=== PATIENT | female | born 1995 | race Caucasian/White ===

== ENCOUNTER 2019-03-10 10:10 | Emergency (ER) | payer OTHER, MEDICAID, SELFPAY ==
[2019-03-10 10:19] VITALS: BP 132/70; PULSE 77; RESP 18; TEMP 36.6; O2SAT 99; BMI 40.5
--- NOTE | 2019-03-10 10:59 | ED.PREGNANCY ---
HPI - General Chief complaint: OB/Uterine Contractions Stated complaint: Cramping/6 wks Time Seen by Provider: 03/10/19 10:50 Source: patient Mode of arrival: ambulatory Limitations: no limitations History of Present Illness HPI Narrative: Patient is a 23-year-old female who states that she thinks she is about 6 weeks she is having some lower abdominal cramping no vaginal bleeding or spotting. She is . She had a miscarriage about 2 years ago. She is actually trying to get . She denies any fever. She is requesting that her progesterone level be checked after researching it on the Internet. Pain Consistency: intermittent Patient : Yes Related Data Allergies Allergy/AdvReac Type Severity Reaction Status Date / Time No Known Allergies Allergy Uncoded 12/23/17 12:24 Review of Systems Review of Systems ROS Unobtainable: All systems reviewed & are unremarkable except as noted in HPI and below Constitutional Denies chills, Denies fever(s), Denies lethargy and Denies weakness Eyes Denies change in vision, Denies eye discharge, Denies irritation and Denies loss of vision ENT Ears, Nose, Mouth, and Throat: Denies change in voice, Denies neck pain and Denies sore throat Cardiovascular Denies chest pain, Denies irregular heart rhythm, Denies lightheadedness, Denies palpitations, Denies dyspnea, Denies dyspnea on exertion and Denies orthopnea Respiratory Denies cough, Denies dyspnea, Denies dyspnea on exertion and Denies wheezing Gastrointestinal Gastrointestinal: Denies abdominal pain, Denies change in bowel habits, Denies diarrhea, Denies nausea and Denies vomiting Genitourinary Reports as per HPI Musculoskeletal Denies neck pain Integumentary/Breasts Denies pruritus, Denies erythema, Denies rash and Denies wounds Neurologic Denies loss of vision and Denies weakness Endocrine Denies palpitations Allergic/Immunologic Denies wheezing PMFSH - Past Medical History Patient : Yes Exam Initial Vital Signs Initial Vital Signs: Vital Signs Temperature 97.9 F 03/10/19 10:19 Pulse Rate 77 03/10/19 10:19 Respiratory Rate 18 03/10/19 10:19 Blood Pressure 132/70 03/10/19 10:19 Pulse Oximetry 99 03/10/19 10:19 GENERAL: Overweight well-appearing female and in no acute distress. HEENT: Head atraumatic,EOMI, pupils reactive CARDIOVASCULAR: Regular rate and rhythm without murmurs, rubs or gallops. RESPIRATORY: Breath sounds equal bilaterally, no wheezes rales or rhonchi. ABDOMEN: Soft, nontender. Normoactive bowel sounds all 4 quadrants. No guarding or rebound. : No CVA tenderness EXTREMITIES: Normal range of motion, no clubbing or edema. Neurovascularly intact NEUROLOGICAL: Alert and oriented x4.Normal gait and speech. Cranial nerves II through XII grossly intact. SKIN: Warm, dry, no laceration, no petechiae, no rashes or lesions. Course Orders Ordered: ED Orders 03/10/19 10:58 US OB <= 14 weeks fetus Stat 03/10/19 11:16 ABO RH Type Stat Complete Blood Count AUTO DIFF Stat Comprehensive Metabolic Panel Stat HCG Quantitative Stat Vital Signs - 8 hr 03/10/19 10:19 Temperature 97.9 F Pulse Rate 77 Respiratory Rate 18 Blood Pressure 132/70 Pulse Oximetry 99 MDM - OB/Uterine Contractions Lab Data Attestation: I reviewed the patient's lab results. Result diagrams: 03/10/19 11:16 03/10/19 11:16 Lab Results 03/10/19 03/10/19 03/10/19 Range/Units 11:16 11:16 11:16 WBC 8.7 (4.5-11.0) X10^3/uL RBC 4.59 (4.0-5.2) X10^6/uL Hgb 14.3 (12.0-16.0) g/dL Hct 41.3 (36-46) % MCV 90.0 (80-100) fL MCH 31.2 (26-34) PG MCHC 34.6 (30-36) % RDW 12.5 (11.6-14.8) % Plt Count 235 (150-400) X10^3/uL Neut % (Auto) 61.8 (50-75) % Lymph % (Auto) 29.8 (25-40) % [place] % (Auto) 7.1 (3-14) % Eos % (Auto) 0.5 L (2-4) % Baso % (Auto) 0.8 (0-2) % Neut # (Auto) 5400 (6458-4588) /uL Lymph # (Auto) 2600 (0653-0735) /uL [place] # (Auto) 600 (0-900) /uL Eos # (Auto) 0 (0-450) /uL Baso # (Auto) 100 (0-100) /uL Sodium 138 (137-145) mmol/L Potassium 3.9 (3.4-5.1) mmol/L Chloride 106 (98-107) mmol/L Carbon Dioxide 24 (22-32) mmol/L BUN 7 (7-17) mg/dL Creatinine 0.50 L (0.52-1.04) mg/dL Estimated GFR > 60.0 (>60) mL/min BUN/Creatinine Ratio 14.0 (6-22) Glucose 90 (70-100) mg/dL Calcium 8.7 (8.4-10.2) mg/dL Total Bilirubin 0.5 (0.2-1.3) mg/dL AST 34 (14-36) IU/L ALT 47 (9-52) IU/L Alkaline Phosphatase 50 (38-126) U/L Total Protein 6.8 (6.3-8.2) g/dL Albumin 4.1 (3.5-5.0) g/dL Globulin 2.7 (1.7-4.1) g/dL Albumin/Globulin Ratio 1.5 (1.0-2.8) HCG, Quant 64570 mIU/mL Blood Type O Positive Point of Care Testing Test Results Positive Urine Dip Bedside Urine Glucose Negative Bedside Urine Bilirubin - Negative Bedside Urine Ketone +/- 5 Urine Specific [place] 1.030 Bedside Urine Occult Blood - Negative Bedside Urine pH 6.0 Bedside Urine Protein +/- 15 Bedside Urine Urobilinogen - Negative Bedside Urine Nitrite - Negative Bedside Urine Leukocytes - Negative Esterase Imaging Data US OB <14 wks: Radiologist's impression: PROCEDURE: US OB <= 14 WEEKS FETUS INDICATIONS: 6 WEEKS CRAMPING OUTSIDE/PRIOR DATING DATA: Last menstrual period (LMP): 01/25/2019. LMP-based estimated date of delivery (IJEOMA): 11/01/2018. First dating scan (date and location): 03/10/2019. Estimated date of delivery (IJEOMA) from first dating scan: 11/02/2019. TECHNIQUE: Real-time scanning was performed of the fetus and maternal pelvic organs, with image documentation. Endovaginal scanning was also performed to better visualize the fetus and maternal ovaries. COMPARISON: [facility], , PELVIC COMPLETE, 01/21/2013, 15:18. FINDINGS: There is a single living IUP with the estimated gestational age 6 weeks one day based on crown-rump length. cardiac activity is present with heart rate 136 bpm. There is a normal-appearing yolk sac. There is a 1.3 x 0.7 x 1.2 cm subchorionic hematoma adjacent to the gestational sac. Measurement variability in dating: +/- 4 weeks by LMP, +/- 7 days by mean sac diameter (use before 6 weeks gestation if crown-rump length not able to be measured), +/- 5 days by crown-rump length (up to 8 weeks 6 days gestation), +/- 7 days by crown-rump length (up to 13 weeks 6 days gestation). Maternal organs: Ovaries are not visualized. Limited images through the kidneys demonstrate no hydronephrosis. IMPRESSION: 1. A single living intrauterine gestation with an estimated gestational age of 6 weeks 1 day corresponding to ultrasound IJEOMA 11/02/2019, concordant with clinical dating. 2. A small perigestational hematoma is noted. Dictated by: Megan Simmons M.D. on 03/10/2019 at 13:16 MDM Narrative Medical decision making narrative: Patient left prior to full blood work. US reassuring. He did not wait for me to come the room and explained things. Discharge Plan Departure Patient Disposition: Left Against Medical Advice Clinical Impression: Left against medical advice Discharge Date/Time: 03/10/19 12:04 Interventions: ED Discharge Assessment Last Done: 03/10/19 12:03 Stand Alone Forms: Against Medical Advice
[2019-03-10 11:27] LABS: Add Manual Diff / Slide Review NO; Basophils Absolute Auto 100 /uL (0-100); Basophils Percent Auto 0.8 % (0-2); Eosinophils Absolute Auto 0 /uL (0-450); Eosinophils Percent Auto 0.5 % (2-4); Hematocrit 41.3 % (36-46); Hemoglobin 14.3 g/dL (12.0-16.0); Lymphocytes Absolute Auto 2600 /uL (1100-4500); Lymphocytes Percent Auto 29.8 % (25-40); Mean Corpuscular HGB Conc 34.6 % (30-36); Mean Corpuscular Hemoglobin 31.2 PG (26-34); Monocytes Absolute Auto 600 /uL (0-900); Monocytes Percent Auto 7.1 % (3-14); Neutrophils Absolute Auto 5400 /uL (1500-7000); Neutrophils Percent Auto 61.8 % (50-75); Platelet Count 235 X10^3/uL (150-400); Red Blood Cell Count 4.59 X10^6/uL (4.0-5.2); Red Cell Distribution Width 12.5 % (11.6-14.8); White Blood Cell Count 8.7 X10^3/uL (4.5-11.0)
[2019-03-10 11:38] LABS: Alanine Aminotransferase 47 IU/L (9-52); Albumin 4.1 g/dL (3.5-5.0); Albumin Globulin Ratio 1.5 (1.0-2.8); Alkaline Phosphatase 50 U/L (38-126); Aspartate Aminotransferase 34 IU/L (14-36); Bilirubin Total 0.5 mg/dL (0.2-1.3); Blood Urea Nitrogen 7 mg/dL (7-17); Calcium 8.7 mg/dL (8.4-10.2); Carbon Dioxide 24 mmol/L (22-32); Chloride 106 mmol/L (98-107); Estimated Glomerular Filt Rate > 60.0 mL/min (>60); Globulin 2.7 g/dL (1.7-4.1); Glucose 90 mg/dL (70-100); Potassium 3.9 mmol/L (3.4-5.1); Sodium 138 mmol/L (137-145); Total Protein 6.8 g/dL (6.3-8.2)
--- NOTE | 2019-03-10 12:01 | PC.NURSE ---
Patient came out of room and asked if she could go. Pt informed that we are still waiting for test results including the official ultrasound results. Pt states that her mother wants to go and they do no want to wait for results. Pt states that ultrasound told her they saw a heart beat so they are comfortable leaving. Charge nurse notified and AMA paper signed.
[2019-03-10 12:18] LABS: HCG Quantitative /Beta subunit 40165 mIU/mL; HEMOLYSIS 26 (0-50)
== END 2019-03-10 12:04 | disposition left against medical advice (07) ==
PROVIDERS: Emergency Provider Emergency Medicine
DX: R10.9 Unspecified abdominal pain (principal)
CPT/HCPCS: 36415; 76801; 76817; 80053; 81003; 81025; 84702; 85025; 86900; 86901; 99283; 99284

== ENCOUNTER 2019-03-18 08:44 | Emergency (ER) | payer OTHER, MEDICAID, SELFPAY ==
[2019-03-18 08:45] VITALS: BP 114/65; PULSE 88; RESP 14; TEMP 36.7; O2SAT 100
--- NOTE | 2019-03-18 09:15 | ED_ITS ---
HPI - Nausea/Vomiting/Diarrhea General Chief complaint: Nausea/Vomiting/Diarrhea Stated complaint: Kidney issues Time Seen by Provider: 03/18/19 08:59 Source: patient Mode of arrival: ambulatory Limitations: no limitations History of Present Illness HPI Narrative: Patient is a 23-year-old female who is currently 7 weeks presenting with left flank pain and nausea. He actually seen evaluated here last week he was having some cramping at that time she had an ultrasound which showed a 6 week IUP. She now is having pretty constant left flank pain. She denies fever or chills. MD complaint: nausea Location of pain: left flank Severity: moderate Related Data Home Medications Medication Instructions Recorded Confirmed vit-iron fum-folic ac 1 tab PO DAILY 03/18/19 03/18/19 [ Vitamin] Previous Rx's Medication Instructions Recorded ondansetron 4 mg PO Q6-8H PRN #20 tab 03/18/19 Allergies Allergy/AdvReac Type Severity Reaction Status Date / Time No Known Drug Allergies Allergy Verified 03/18/19 09:02 Review of Systems Review of Systems GENERAL: Denies chills, fatigue, malaise, fever, sweats, travel HEENT: Denies sinus pain, ear pain, sore throat, difficulty swallowing, neck pain RESPIRATORY: Denies dyspnea, cough, wheezing, hemoptysis, sputum. CARDIOVASCULAR: Denies chest pain, palpitations, orthopnea, edema GASTROINTESTINAL: Denies nausea, vomiting, abdominal pain, diarrhea, constipation, melena. : See HPI MUSCULOSKELETAL: Denies weakness, joint pain, or bony pain SKIN: No rash, no erythema, no pruritus NEUROLOGIC: Denies weakness, dizziness, headache, numbness, change in speech, confusion PSYCHIATRIC: No concerning psychosocial issues. 12 point review of systems is negative except for those stated above and HPI [facility] Medical History Patient denies significant medical history (Acute) Social History (System 03/14/19 @ 09:11 by Zaida Hinson) Smoking Status: Former smoker Social History Smoking Status: Former smoker Exam Initial Vital Signs Initial Vital Signs: Vital Signs Temperature 98.0 F 03/18/19 08:45 Pulse Rate 88 03/18/19 08:45 Respiratory Rate 14 03/18/19 08:45 Blood Pressure 114/65 03/18/19 08:45 Pulse Oximetry 100 03/18/19 08:45 GENERAL: Alert young female and in no acute distress. HEENT: Head atraumatic,EOMI, pupils reactive CARDIOVASCULAR: Regular rate and rhythm without murmurs, rubs or gallops. RESPIRATORY: Breath sounds equal bilaterally, no wheezes rales or rhonchi. ABDOMEN: Soft, nontender. Normoactive bowel sounds all 4 quadrants. No guarding or rebound. : Left flank CVA tenderness EXTREMITIES: Normal range of motion, no clubbing or edema. Neurovascularly intact NEUROLOGICAL: Alert and oriented x4.Normal gait and speech. Cranial nerves II through XII grossly intact. SKIN: Warm, dry, no laceration, no petechiae, no rashes or lesions. Course Orders Ordered: ED Orders 03/18/19 09:32 Complete Blood Count AUTO DIFF Stat Comprehensive Metabolic Panel Stat 03/18/19 11:02 US abdomen complete Stat Discontinued Medications Acetaminophen (Tylenol) 975 mg PO NOW ONE Stop: 03/18/19 09:10 Last Admin: 03/18/19 09:20 Dose: 975 mg Sodium Chloride (Normal Saline 0.9%) 1,000 mls @ 1,000 mls/hr IV BOLUS ONE Stop: 03/18/19 10:02 Last Infusion: 03/18/19 10:30 Dose: 0 mls/hr Admin: 03/18/19 09:21 Dose: 1,000 mls/hr Ondansetron HCl (Zofran) 4 mg IV NOW ONE Stop: 03/18/19 09:10 Last Admin: 03/18/19 09:20 Dose: 4 mg Vital Signs - 8 hr 03/18/19 08:45 03/18/19 12:07 Temperature 98.0 F Pulse Rate 88 57 L Respiratory Rate 14 16 Blood Pressure 114/65 Blood Pressure [Left Arm] 106/58 L Pulse Oximetry 100 100 MDM - Nausea/Vomiting/Diarrhea Lab Data Attestation: I reviewed the patient's lab results. Result diagrams: 03/18/19 09:32 03/18/19 09:32 Lab Results 03/18/19 03/18/19 Range/Units 09:32 09:32 WBC 9.4 (4.5-11.0) X10^3/uL RBC 4.36 (4.0-5.2) X10^6/uL Hgb 13.5 (12.0-16.0) g/dL Hct 39.6 (36-46) % MCV 90.8 (80-100) fL MCH 30.9 (26-34) PG MCHC 34.0 (30-36) % RDW 12.5 (11.6-14.8) % Plt Count 203 (150-400) X10^3/uL Neut % (Auto) 67.3 (50-75) % Lymph % (Auto) 24.9 L (25-40) % [place] % (Auto) 6.9 (3-14) % Eos % (Auto) 0.4 L (2-4) % Baso % (Auto) 0.5 (0-2) % Neut # (Auto) 6400 (4708-3014) /uL Lymph # (Auto) 2300 (4273-0959) /uL [place] # (Auto) 600 (0-900) /uL Eos # (Auto) 0 (0-450) /uL Baso # (Auto) 0 (0-100) /uL Sodium 138 (137-145) mmol/L Potassium 4.0 (3.4-5.1) mmol/L Chloride 105 (98-107) mmol/L Carbon Dioxide 24 (22-32) mmol/L BUN 8 (7-17) mg/dL Creatinine 0.50 L (0.52-1.04) mg/dL Estimated GFR > 60.0 (>60) mL/min BUN/Creatinine Ratio 16.0 (6-22) Glucose 88 (70-100) mg/dL Calcium 8.6 (8.4-10.2) mg/dL Total Bilirubin 0.4 (0.2-1.3) mg/dL AST 24 (14-36) IU/L ALT 53 H (9-52) IU/L Alkaline Phosphatase 49 (38-126) U/L Total Protein 6.3 (6.3-8.2) g/dL Albumin 3.8 (3.5-5.0) g/dL Globulin 2.5 (1.7-4.1) g/dL Albumin/Globulin Ratio 1.5 (1.0-2.8) Point of Care Testing Test Results Positive Urine Dip Bedside Urine Glucose Negative Bedside Urine Bilirubin - Negative Bedside Urine Ketone - Negative Urine Specific [place] 1.030 Bedside Urine Occult Blood - Negative Bedside Urine pH 6.0 Bedside Urine Protein +/- 15 Bedside Urine Urobilinogen - Negative Bedside Urine Nitrite - Negative Bedside Urine Leukocytes - Negative Esterase Imaging Data US - abdomen: Radiologist's impression: PROCEDURE: US ABDOMEN COMPLETE INDICATIONS: LEFT FLANK PAIN TECHNIQUE: Real-time scanning was performed of the abdominal and retroperitoneal organs, with image documentation. COMPARISON: [facility], US, US OB <= 14 WEEKS FETUS, 03/10/2019, 11:20. FINDINGS: Liver: Liver is normal in size and demonstrates diffusely increased echotexture. Gallbladder: No gallstones. No gallbladder wall thickening, pericholecystic fluid or sonographic Lunsford's sign. Biliary ducts: Intrahepatic bile ducts are non-dilated. Extrahepatic bile duct caliber measures 4.0 mm. Normal is 6-7 mm or less in diameter, or 10 mm or less post-cholecystectomy. Pancreas: Obscured by overlying bowel gas. Spleen: Spleen is normal in size and homogeneous in echotexture. Kidneys: Kidneys are normal in size and echotexture. Right kidney measures 11.3 cm long; left kidney measures 15.0 cm long. No hydronephrosis or nephrolithiasis. No solid masses. Aorta: Visualized aorta is normal in caliber at less than 3 cm. Iliacs: Proximal common iliac arteries are normal in caliber at less than 2.5 cm. IVC: Intrahepatic inferior vena cava is patent. Miscellaneous: No free abdominal fluid. There is an IUP with heart rate 144. IMPRESSION: 1. Diffusely increased hepatic echotexture. This finding is most likely secondary to hepatic fatty infiltration although other hepatocellular disease may have a similar appearance. Recommend clinical correlation. 2. Suboptimal examination. Pancreas and spleen not visualized. 3. There is an IUP with heart rate 144 bpm. Dictated by: Megan Simmons M.D. on 03/18/2019 at 11:46 MDM Narrative Medical decision making narrative: At this time no significant infection. She was documented to have an IUP week ago. She is feeling will better after Tylenol. This time recommend outpatient follow-up. Discharge Plan Departure Patient Disposition: Home Clinical Impression: Abdominal pain Qualifiers: Abdominal location: generalized Qualified Code(s): R10.84 - Generalized abdominal pain Discharge Date/Time: 03/18/19 12:13 Interventions: ED Discharge Assessment Last Done: 03/18/19 12:12 Instructions: Common Discomforts and Bodily Changes During Activity Restrictions/Additional Instructions: *You have been diagnosed with abdominal discomfort *What to do: At this time there is no sign of infection including UTI. Blood work is reassuring. Ultrasound does not show any kidney stones or gallbladder problem. *Continue to take medications as directed Zofran 4 mg every 6-8 hours if needed for nausea or vomiting *Follow up with your primary care provider in 2-3 days, follow up with your Ob *Return to ER if you should have significant worsening pain significant bright red vaginal bleeding or any new, worsening or concerning symptoms Prescriptions: New ondansetron 4 mg tablet,disintegrating 4 mg PO Q6-8H PRN (Reason: nausea and vomiting) Qty: 20 RF: 0 No Action Vitamin 27 mg iron- 0.8 mg Tablet 1 tab PO DAILY RF: 0 Referrals: Adriana Bullock PA-C [Primary Care Provider] -
[2019-03-18] MEDS: ACETAMINOPHEN 325 MG TABLET 975 MG PO (09:20)
[2019-03-18] MEDS: ONDANSETRON 4 MG/2 ML INJ IV (09:20)
[2019-03-18] MEDS: SODIUM CHLORIDE 0.9% 1,000 ML 1000 ML IV (09:21)
[2019-03-18 09:41] LABS: Add Manual Diff / Slide Review NO; Basophils Absolute Auto 0 /uL (0-100); Basophils Percent Auto 0.5 % (0-2); Eosinophils Absolute Auto 0 /uL (0-450); Eosinophils Percent Auto 0.4 % (2-4); Hematocrit 39.6 % (36-46); Hemoglobin 13.5 g/dL (12.0-16.0); Lymphocytes Absolute Auto 2300 /uL (1100-4500); Lymphocytes Percent Auto 24.9 % (25-40); Mean Corpuscular Hemoglobin 30.9 PG (26-34); Mean Corpuscular Volume 90.8 fL (80-100); Monocytes Absolute Auto 600 /uL (0-900); Monocytes Percent Auto 6.9 % (3-14); Neutrophils Absolute Auto 6400 /uL (1500-7000); Neutrophils Percent Auto 67.3 % (50-75); Platelet Count 203 X10^3/uL (150-400); Red Blood Cell Count 4.36 X10^6/uL (4.0-5.2); Red Cell Distribution Width 12.5 % (11.6-14.8); White Blood Cell Count 9.4 X10^3/uL (4.5-11.0)
[2019-03-18 09:55] LABS: Alanine Aminotransferase 53 IU/L (9-52); Albumin 3.8 g/dL (3.5-5.0); Albumin Globulin Ratio 1.5 (1.0-2.8); Alkaline Phosphatase 49 U/L (38-126); Aspartate Aminotransferase 24 IU/L (14-36); Bilirubin Total 0.4 mg/dL (0.2-1.3); Blood Urea Nitrogen 8 mg/dL (7-17); Calcium 8.6 mg/dL (8.4-10.2); Carbon Dioxide 24 mmol/L (22-32); Chloride 105 mmol/L (98-107); Estimated Glomerular Filt Rate > 60.0 mL/min (>60); Globulin 2.5 g/dL (1.7-4.1); Glucose 88 mg/dL (70-100); HEMOLYSIS < 15 (0-50); Sodium 138 mmol/L (137-145); Total Protein 6.3 g/dL (6.3-8.2)
--- NOTE | 2019-03-18 11:02 | DI.US.S_ITS ---
PROCEDURE: US ABDOMEN COMPLETE INDICATIONS: LEFT FLANK PAIN TECHNIQUE: Real-time scanning was performed of the abdominal and retroperitoneal organs, with image documentation. COMPARISON: [facility], US, US OB <= 14 WEEKS FETUS, 03/10/2019, 11:20. FINDINGS: Liver: Liver is normal in size and demonstrates diffusely increased echotexture. Gallbladder: No gallstones. No gallbladder wall thickening, pericholecystic fluid or sonographic Lunsford's sign. Biliary ducts: Intrahepatic bile ducts are non-dilated. Extrahepatic bile duct caliber measures 4.0 mm. Normal is 6-7 mm or less in diameter, or 10 mm or less post-cholecystectomy. Pancreas: Obscured by overlying bowel gas. Spleen: Spleen is normal in size and homogeneous in echotexture. Kidneys: Kidneys are normal in size and echotexture. Right kidney measures 11.3 cm long; left kidney measures 15.0 cm long. No hydronephrosis or nephrolithiasis. No solid masses. Aorta: Visualized aorta is normal in caliber at less than 3 cm. Iliacs: Proximal common iliac arteries are normal in caliber at less than 2.5 cm. IVC: Intrahepatic inferior vena cava is patent. Miscellaneous: No free abdominal fluid. There is an IUP with heart rate 144. IMPRESSION: 1. Diffusely increased hepatic echotexture. This finding is most likely secondary to hepatic fatty infiltration although other hepatocellular disease may have a similar appearance. Recommend clinical correlation. 2. Suboptimal examination. Pancreas and spleen not visualized. 3. There is an IUP with heart rate 144 bpm. Dictated by: Megan Simmons M.D. on 03/18/2019 at 11:46 Approved by: Megan Simmons M.D. on 03/18/2019 at 11:50
[2019-03-18 12:07] VITALS: BP 106/58; PULSE 57; RESP 16; O2SAT 100
== END 2019-03-18 12:13 | disposition home or self-care (01) ==
PROVIDERS: Emergency Provider Emergency Medicine; Family Provider Physician Assistant; PCP Physician Assistant
DX: R10.84 Generalized abdominal pain (principal); Z33.1 Pregnant state, incidental
CPT/HCPCS: 36415; 76700; 80053; 81003; 81025; 85025; 96361; 96374; 99283; 99284; J2405

== ENCOUNTER 2019-04-03 07:52 | Emergency (ER) | payer OTHER, MEDICAID, SELFPAY ==
[2019-04-03 07:58] VITALS: BP 130/78; PULSE 94; RESP 16; TEMP 36.9; O2SAT 95; BMI 40.0
--- NOTE | 2019-04-03 08:17 | ED.NAVMDI ---
HPI - Nausea/Vomiting/Diarrhea General Chief complaint: Nausea/Vomiting/Diarrhea Stated complaint: Dehydrated Time Seen by Provider: 04/03/19 07:54 Source: patient and family Mode of arrival: ambulatory Limitations: no limitations History of Present Illness HPI Narrative: 23-year-old female nonsmoker presents with her mother and a chief complaint of persistent nausea and vomiting. She states she is dizzy, weak and lightheaded and this is the 3rd such episode during her current . She is a at 9 weeks and had been taking Zofran but ran out a few days ago. She denies any fever chills and has no pain nor vaginal bleeding or discharge. She becomes dizzy upon standing MD complaint: nausea and vomiting Onset (ago): hour(s) Description of Vomiting: food contents Description of Diarrhea: none Associated Abdominal Pain: No Severity: mild Exacerbating factors: none Related Data Home Medications Medication Instructions Recorded Confirmed vit-iron fum-folic ac 1 tab PO DAILY 03/18/19 03/24/19 [ Vitamin] Previous Rx's Medication Instructions Recorded ondansetron 4 mg PO Q6-8H PRN #20 tab 03/18/19 ondansetron 4 mg PO TID-QID PRN #10 tab 04/03/19 promethazine 12.5 mg AR Q4-6H PRN #12 each 04/03/19 Allergies Allergy/AdvReac Type Severity Reaction Status Date / Time Latex, Natural Rubber Allergy Swelling Verified 04/03/19 07:58 adhesives Allergy Mild Hives and Uncoded 04/03/19 07:58 Blisters Review of Systems Review of Systems ROS Unobtainable: All systems reviewed & are unremarkable except as noted in HPI and below Constitutional Denies chills, Denies fever(s), Denies lethargy and Reports weakness Eyes Denies change in vision, Denies eye discharge, Denies irritation and Denies loss of vision ENT Ears, Nose, Mouth, and Throat: Denies change in voice, Denies neck pain and Denies sore throat Cardiovascular Denies chest pain, Denies irregular heart rhythm, Denies lightheadedness, Denies palpitations, Denies dyspnea, Denies dyspnea on exertion and Denies orthopnea Respiratory Denies cough, Denies dyspnea, Denies dyspnea on exertion and Denies wheezing Gastrointestinal Gastrointestinal: Denies abdominal pain, Denies change in bowel habits, Denies diarrhea, Reports nausea and Reports vomiting Genitourinary Denies hematuria, Denies flank pain, Denies urinary incontinence and Denies urinary urgency Musculoskeletal Denies neck pain Integumentary/Breasts Denies pruritus, Denies erythema, Denies rash and Denies wounds Neurologic Denies confusion, Denies loss of vision and Reports weakness Psychiatric Denies anxiety, Denies confusion, Denies depression, Denies homicidal ideation and Denies suicidal ideation Endocrine Denies palpitations Hematologic/Lymphatic Denies easy bruising Allergic/Immunologic Denies wheezing PFSH Medical History Anxiety (Chronic) Bipolar disorder (Chronic) Depression (Chronic) Surgical History H/O dilation and curettage (Resolved) History of tonsillectomy (Resolved) Family History Mother Ovarian cancer Social History Smoking Status: Former smoker alcohol intake: former (Quit for ) substance use type: marijuana (Quit for ) Family History Mother Ovarian cancer Social History Smoking Status: Former smoker alcohol intake: former (Quit for ) substance use type: marijuana (Quit for ) Exam Narrative Exam Narrative: GENERAL: 23-year-old female, obviously not feeling well, dry mucous membranes HEAD: Atraumatic. Normocephalic. No temporal or scalp tenderness. EYES: Dry membranes Pupils equal round and reactive. Extraocular motions intact. No scleral icterus. No injection or drainage. ENT: Nose without bleeding, purulent drainage or septal hematoma. Throat without erythema, tonsillar hypertrophy or exudate. Uvula midline. Airway patent. NECK: Trachea midline. No JVD or lymphadenopathy. Supple, nontender, no meningeal signs. CARDIOVASCULAR: Regular rate and rhythm without murmurs, gallops, or rubs. RESPIRATORY: Clear to auscultation. Breath sounds equal bilaterally. No wheezes, rales, or rhonchi. GASTROINTESTINAL: Abdomen soft, non-tender, nondistended. No hepato-splenomegaly, or palpable masses. No guarding. EXTREMITIES: No clubbing, cyanosis, or edema. No joint tenderness, effusion, or edema noted. BACK: Nontender without deformity or crepitance. No flank tenderness. NEURO: AOx3. SKIN: No rash or erythema. Initial Vital Signs Initial Vital Signs: Vital Signs Temperature 98.5 F 04/03/19 07:58 Pulse Rate 94 H 04/03/19 07:58 Respiratory Rate 16 04/03/19 07:58 Blood Pressure 130/78 04/03/19 07:58 Pulse Oximetry 95 04/03/19 07:58 Course Orders Ordered: ED Orders 04/03/19 08:15 Basic Metabolic Panel Stat Complete Blood Count AUTO DIFF Stat Ketones (Beta-Hydroxybutyrate) Stat Discontinued Medications Acetaminophen (Tylenol) 650 mg PO NOW ONE Stop: 04/03/19 08:01 Last Admin: 04/03/19 08:23 Dose: 650 mg Sodium Chloride (Normal Saline 0.9%) 1,000 mls @ 1,000 mls/hr IV BOLUS ONE Stop: 04/03/19 08:59 Last Infusion: 04/03/19 09:12 Dose: 0 mls/hr Admin: 04/03/19 08:19 Dose: 1,000 mls/hr Sodium Chloride (Normal Saline 0.9%) 1,000 mls @ 1,000 mls/hr IV BOLUS ONE Stop: 04/03/19 10:11 Last Infusion: 04/03/19 09:26 Dose: 0 mls/hr Admin: 04/03/19 08:30 Dose: 1,000 mls/hr Ondansetron HCl (Zofran) 4 mg IV Q4HR PRN PRN Reason: Nausea And Vomiting Last Admin: 04/03/19 08:19 Dose: 4 mg Reevaluation(s) Reevaluation #1: patient feeling much better, ready to go home Vital Signs - 8 hr 04/03/19 07:58 04/03/19 09:49 Temperature 98.5 F Pulse Rate 94 H 66 Respiratory Rate 16 16 Blood Pressure 130/78 Blood Pressure [Right Arm] 106/44 L Pulse Oximetry 95 95 MDM - Nausea/Vomiting/Diarrhea Lab Data Result diagrams: 04/03/19 08:15 04/03/19 08:15 Lab Results 04/03/19 04/03/19 Range/Units 08:15 08:15 WBC 9.4 (4.5-11.0) X10^3/uL RBC 4.76 (4.0-5.2) X10^6/uL Hgb 14.6 (12.0-16.0) g/dL Hct 42.7 (36-46) % MCV 89.8 (80-100) fL MCH 30.6 (26-34) PG MCHC 34.1 (30-36) % RDW 12.5 (11.6-14.8) % Plt Count 235 (150-400) X10^3/uL Neut % (Auto) 64.0 (50-75) % Lymph % (Auto) 27.8 (25-40) % [place] % (Auto) 7.1 (3-14) % Eos % (Auto) 0.5 L (2-4) % Baso % (Auto) 0.6 (0-2) % Neut # (Auto) 6000 (5458-2412) /uL Lymph # (Auto) 2600 (9550-6259) /uL [place] # (Auto) 700 (0-900) /uL Eos # (Auto) 100 (0-450) /uL Baso # (Auto) 100 (0-100) /uL Sodium 135 L (137-145) mmol/L Potassium 3.9 (3.4-5.1) mmol/L Chloride 103 (98-107) mmol/L Carbon Dioxide 23 (22-32) mmol/L BUN 6 L (7-17) mg/dL Creatinine 0.50 L (0.52-1.04) mg/dL Estimated GFR > 60.0 (>60) mL/min BUN/Creatinine Ratio 12.0 (6-22) Glucose 90 (70-100) mg/dL Calcium 9.2 (8.4-10.2) mg/dL Ketones 0.44 H (<0.27) mmol/L Urine Dip Bedside Urine Glucose Negative Bedside Urine Bilirubin - Negative Bedside Urine Ketone +++ 80 Urine Specific [place] 1.015 Bedside Urine Occult Blood - Negative Bedside Urine pH 7.0 Bedside Urine Protein - Negative Bedside Urine Urobilinogen - Negative Bedside Urine Nitrite - Negative Bedside Urine Leukocytes - Negative Esterase Discharge Plan Departure Patient Disposition: Home Clinical Impression: Dehydration Discharge Date/Time: 04/03/19 10:21 Interventions: ED Discharge Assessment Last Done: 04/03/19 10:21 Instructions: DI for Dehydration -- Adult, DI for Vomiting -- Adult Activity Restrictions/Additional Instructions: 1. Drink plenty of fluids with frequent small sips. 2. For the next 24 hours a clear liquid diet is advised. After that please employ a brat diet which would include bananas, rice, apples, toast. 3. Please take medications as directed. 4. Please follow-up with your doctor in the next 1-2 days. Call the office for an appointment. 5. Please return to the emergency Department for any worsening or persistent symptoms, such as increasing pain or fever. Prescriptions: New promethazine 12.5 mg suppository 12.5 mg AR Q4-6H PRN (Reason: nausea and vomiting) Qty: 12 RF: 0 ondansetron 4 mg tablet,disintegrating 4 mg PO TID-QID PRN (Reason: nausea and vomiting) Qty: 10 RF: 0 No Action Vitamin 27 mg iron- 0.8 mg Tablet 1 tab PO DAILY RF: 0 ondansetron 4 mg tablet,disintegrating 4 mg PO Q6-8H PRN (Reason: nausea and vomiting) Qty: 20 RF: 0 Referrals: Adriana Bullock PA-C [Primary Care Provider] -
[2019-04-03] MEDS: ONDANSETRON 4 MG/2 ML INJ IV (08:19)
[2019-04-03] MEDS: SODIUM CHLORIDE 0.9% 1,000 ML 1000 ML IV ×2 (08:19→08:30)
[2019-04-03] MEDS: ACETAMINOPHEN 325 MG TABLET 650 MG PO (08:23)
[2019-04-03 08:25] LABS: Add Manual Diff / Slide Review NO; Basophils Absolute Auto 100 /uL (0-100); Basophils Percent Auto 0.6 % (0-2); Eosinophils Absolute Auto 100 /uL (0-450); Eosinophils Percent Auto 0.5 % (2-4); Hematocrit 42.7 % (36-46); Hemoglobin 14.6 g/dL (12.0-16.0); Lymphocytes Absolute Auto 2600 /uL (1100-4500); Lymphocytes Percent Auto 27.8 % (25-40); Mean Corpuscular HGB Conc 34.1 % (30-36); Mean Corpuscular Hemoglobin 30.6 PG (26-34); Mean Corpuscular Volume 89.8 fL (80-100); Monocytes Absolute Auto 700 /uL (0-900); Monocytes Percent Auto 7.1 % (3-14); Neutrophils Absolute Auto 6000 /uL (1500-7000); Platelet Count 235 X10^3/uL (150-400); Red Blood Cell Count 4.76 X10^6/uL (4.0-5.2); Red Cell Distribution Width 12.5 % (11.6-14.8); White Blood Cell Count 9.4 X10^3/uL (4.5-11.0)
[2019-04-03 08:31] LABS: HEMOLYSIS 20 (0-50)
--- NOTE | 2019-04-03 08:33 | PC.NURSE ---
Call made to L&D to see if anyone available to do FHT's. Pt and mother requests to hear them. No order but it was stated by that we would see if it could be done.
[2019-04-03 08:36] LABS: Blood Urea Nitrogen 6 mg/dL (7-17); Calcium 9.2 mg/dL (8.4-10.2); Carbon Dioxide 23 mmol/L (22-32); Chloride 103 mmol/L (98-107); Estimated Glomerular Filt Rate > 60.0 mL/min (>60); Glucose 90 mg/dL (70-100); Potassium 3.9 mmol/L (3.4-5.1); Sodium 135 mmol/L (137-145)
[2019-04-03 08:57] LABS: Ketones (Beta-Hydroxybutyrate) 0.44 mmol/L (<0.27)
[2019-04-03 09:49] VITALS: BP 106/44; PULSE 66; RESP 16; O2SAT 95
== END 2019-04-03 10:21 | disposition home or self-care (01) ==
PROVIDERS: Emergency Provider Emergency Medicine; Family Provider Physician Assistant; PCP Physician Assistant
DX: E86.0 Dehydration (principal)
CPT/HCPCS: 36591; 80048; 81003; 82009; 85025; 96361; 96374; 99283; 99284; J2405

== ENCOUNTER 2019-04-15 08:44 | Emergency (ER) | payer OTHER, MEDICAID, SELFPAY ==
[2019-04-15 08:50] VITALS: BP 130/75; PULSE 77; RESP 16; TEMP 36.9; O2SAT 95
[2019-04-15 08:55] VITALS: BP 130/75; PULSE 77; RESP 16; TEMP 36.9; O2SAT 95; BMI 88.1
--- NOTE | 2019-04-15 09:05 | ED.PREGNANCY ---
HPI - General Chief complaint: OB/Uterine Contractions Stated complaint: States Hypermesis, dehydration Time Seen by Provider: 04/15/19 08:59 Source: patient and old records reviewed Mode of arrival: ambulatory Limitations: no limitations History of Present Illness HPI Narrative: Patient is a 23-year-old presenting with nausea vomiting ongoing for the last 3 days. She states that she is unable to keep anything down. She has been having some abdominal cramping in her lower right area ongoing for at least the last 3 days. She has not had any fever no changes in bowel habits. No vaginal bleeding. She denies any vaginal bleeding. Related Data Home Medications Medication Instructions Recorded Confirmed vit-iron fum-folic ac 1 tab PO DAILY 03/18/19 03/24/19 [ Vitamin] Previous Rx's Medication Instructions Recorded ondansetron 4 mg PO TID-QID PRN #10 tab 04/03/19 promethazine 12.5 mg VT Q4-6H PRN #12 each 04/03/19 ondansetron 4 mg PO Q6-8H PRN #15 tab 04/15/19 Allergies Allergy/AdvReac Type Severity Reaction Status Date / Time Latex, Natural Rubber Allergy Swelling Verified 04/15/19 09:00 adhesives Allergy Mild Hives and Uncoded 04/15/19 09:00 Blisters Review of Systems Review of Systems GENERAL: Denies chills, fatigue, malaise, fever, sweats, travel HEENT: Denies sinus pain, ear pain, sore throat, difficulty swallowing, neck pain RESPIRATORY: Denies dyspnea, cough, wheezing, hemoptysis, sputum. CARDIOVASCULAR: Denies chest pain, palpitations, orthopnea, edema GASTROINTESTINAL: See HPI : Denies dysuria, frequency, incontinence, hematuria, urinary retention, flank pain. MUSCULOSKELETAL: Denies weakness, joint pain, or bony pain SKIN: No rash, no erythema, no pruritus NEUROLOGIC: Denies weakness, dizziness, headache, numbness, change in speech, confusion PSYCHIATRIC: No concerning psychosocial issues. 12 point review of systems is negative except for those stated above and HPI Exam Initial Vital Signs Initial Vital Signs: Vital Signs Temperature 98.4 F 04/15/19 08:50 Pulse Rate 77 04/15/19 08:50 Respiratory Rate 16 04/15/19 08:50 Blood Pressure 130/75 04/15/19 08:50 Pulse Oximetry 95 04/15/19 08:50 GENERAL: Well-appearing, well-nourished and in no acute distress. HEENT: Head atraumatic,EOMI, pupils reactive, face symmetric, moist mucous membranes CARDIOVASCULAR: Regular rate and rhythm without murmurs, rubs or gallops. RESPIRATORY: Breath sounds equal bilaterally, no wheezes rales or rhonchi. ABDOMEN: Soft, mild tenderness right side no guarding no rebound : No CVA tenderness EXTREMITIES: Normal range of motion, no clubbing or edema. Neurovascularly intact NEUROLOGICAL: Alert and oriented x4.Normal gait and speech. Cranial nerves II through XII grossly intact. SKIN: Warm, dry, no laceration, no petechiae, no rashes or lesions. Course Orders Ordered: ED Orders 04/15/19 09:00 Complete Blood Count AUTO DIFF Stat Comprehensive Metabolic Panel Stat 04/15/19 09:07 US OB <= 14 weeks fetus Stat 04/15/19 12:45 Urine Drug Screen, Rapid Stat Discontinued Medications Acetaminophen (Tylenol) 650 mg PO NOW ONE Stop: 04/15/19 09:19 Last Admin: 04/15/19 09:21 Dose: 650 mg Sodium Chloride (Normal Saline 0.9%) 1,000 mls @ 1,000 mls/hr IV CONT FRANCISCO Last Infusion: 04/15/19 11:34 Dose: 0 mls/hr Admin: 04/15/19 09:14 Dose: 1,000 mls/hr Sodium Chloride (Normal Saline 0.9%) 1,000 mls @ 1,000 mls/hr IV BOLUS ONE Stop: 04/15/19 11:26 Last Infusion: 04/15/19 13:00 Dose: 0 mls/hr Admin: 04/15/19 11:35 Dose: 1,000 mls/hr Sodium Chloride (Normal Saline 0.9%) 1,000 mls @ 1,000 mls/hr IV BOLUS ONE Stop: 04/15/19 12:03 Last Admin: 04/15/19 13:00 Dose: Not Given Ondansetron HCl (Zofran) 4 mg IV NOW ONE Stop: 04/15/19 09:06 Last Admin: 04/15/19 09:15 Dose: 4 mg Vital Signs - 8 hr 04/15/19 08:50 04/15/19 08:55 04/15/19 10:43 Temperature 98.4 F 98.4 F Pulse Rate 77 77 84 Respiratory Rate 16 16 18 Blood Pressure 130/75 Blood Pressure [Right Arm] 130/75 109/67 Pulse Oximetry 95 95 99 04/15/19 12:51 Temperature Pulse Rate 62 Respiratory Rate 14 Blood Pressure Blood Pressure [Right Arm] 109/59 L Pulse Oximetry 99 MDM - OB/Uterine Contractions Lab Data Attestation: I reviewed the patient's lab results. Result diagrams: 04/15/19 09:00 04/15/19 09:00 Lab Results 04/15/19 04/15/19 04/15/19 Range/Units 09:00 09:00 12:45 WBC 7.9 (4.5-11.0) X10^3/uL RBC 4.65 (4.0-5.2) X10^6/uL Hgb 14.3 (12.0-16.0) g/dL Hct 41.7 (36-46) % MCV 89.8 (80-100) fL MCH 30.8 (26-34) PG MCHC 34.3 (30-36) % RDW 12.7 (11.6-14.8) % Plt Count 226 (150-400) X10^3/uL Neut % (Auto) 63.1 (50-75) % Lymph % (Auto) 28.7 (25-40) % [place] % (Auto) 7.3 (3-14) % Eos % (Auto) 0.4 L (2-4) % Baso % (Auto) 0.5 (0-2) % Neut # (Auto) 5000 (6868-4695) /uL Lymph # (Auto) 2300 (6073-8511) /uL [place] # (Auto) 600 (0-900) /uL Eos # (Auto) 0 (0-450) /uL Baso # (Auto) 0 (0-100) /uL Sodium 136 L (137-145) mmol/L Potassium 3.9 (3.4-5.1) mmol/L Chloride 103 (98-107) mmol/L Carbon Dioxide 22 (22-32) mmol/L BUN 5 L (7-17) mg/dL Creatinine 0.50 L (0.52-1.04) mg/dL Estimated GFR > 60.0 (>60) mL/min BUN/Creatinine Ratio 10.0 (6-22) Glucose 94 (70-100) mg/dL Calcium 9.2 (8.4-10.2) mg/dL Total Bilirubin 0.7 (0.2-1.3) mg/dL AST 33 (14-36) IU/L ALT 48 (9-52) IU/L Alkaline Phosphatase 49 (38-126) U/L Total Protein 6.9 (6.3-8.2) g/dL Albumin 4.1 (3.5-5.0) g/dL Globulin 2.8 (1.7-4.1) g/dL Albumin/Globulin Ratio 1.5 (1.0-2.8) Urine Opiates Screen Negative (Negative) Ur Oxycodone Screen Negative (Negative) Urine Methadone Screen Negative (Negative) Ur Barbiturates Screen Negative (Negative) U Tricyclic Antidepress Negative (Negative) Ur Phencyclidine Scrn Negative (Negative) Ur Amphetamines Screen Negative (Negative) U Methamphetamines Scrn Negative (Negative) Ur MDMA Scrn (Ecstasy) Negative (Negative) U Benzodiazepines Scrn Negative (Negative) Urine Cocaine Screen Negative (Negative) U Marijuana (THC) Screen Positive H (Negative) Urine Dip Bedside Urine Glucose Negative Bedside Urine Bilirubin - Negative Bedside Urine Ketone +++ 80 Urine Specific [place] 1.020 Bedside Urine Occult Blood - Negative Bedside Urine pH 6.0 Bedside Urine Protein +/- 15 Bedside Urine Urobilinogen +/- 1mg Bedside Urine Nitrite - Negative Bedside Urine Leukocytes - Negative Esterase Imaging Data OB US: Radiologist's impression: PROCEDURE: US OB <= 14 WEEKS FETUS INDICATIONS: CRAMPING OUTSIDE/PRIOR DATING DATA: Last menstrual period (LMP): 03/10/19. LMP-based estimated date of delivery (IJEOMA): 11/01/19. First dating scan (date and location): 03/10/19. Estimated date of delivery (IJEOMA) from first dating scan: 11/02/19. TECHNIQUE: Real-time scanning was performed of the fetus and maternal pelvic organs, with image documentation. Endovaginal scanning was also performed to better visualize the fetus and maternal ovaries. COMPARISON: [facility], , US OB <= 14 WEEKS FETUS, 03/10/2019, 11:20. FINDINGS: Embryo: Single living intrauterine fetus is present with a crown-rump length measuring 5.0 cm, 11 weeks 5 days. heart rate measured 162 beats per minute. Redemonstration of zari-gestational hemorrhage measuring 1.3 x 0.3 x 1.5 cm, essentially unchanged. Measurement variability in dating: +/- 4 weeks by LMP, +/- 7 days by mean sac diameter (use before 6 weeks gestation if crown-rump length not able to be measured), +/- 5 days by crown-rump length (up to 8 weeks 6 days gestation), +/- 7 days by crown-rump length (up to 13 weeks 6 days gestation). Maternal organs: Ovaries not well visualized sonographically. Limited images through the kidneys demonstrate no hydronephrosis. IMPRESSION: Single living intrauterine fetus demonstrating expected interval growth. Redemonstration of grossly unchanged zari-gestational hemorrhage Dictated by: Narciso Mcbride M.D. on 04/15/2019 at 9:57 MDM Narrative Medical decision making narrative: Patient received 2 L of IV fluids. She is overall feeling better tolerating oral fluids. She urinated. She does smoke quite strongly of marijuana she states that she does not smoke it she only he does it. However drug screen does say positive for marijuana. Patient is given Zofran for home. Discharge Plan Departure Patient Disposition: Home Clinical Impression: Hyperemesis gravidarum Discharge Date/Time: 04/15/19 13:00 Interventions: ED Discharge Assessment Last Done: 04/15/19 13:00 Instructions: DI for Hyperemesis Gravidarum Activity Restrictions/Additional Instructions: 1) You have been diagnosed with hyperemesis gravidarum 2) What to do: Drink frequent but small amounts of fluids. I recommend Gatorade or a Gatorade-like product, as it has small amounts of sugar and salts that improve fluid retention. 3) Take medications as directed Zofran 4 mg every 6-8 hours if needed for nausea or vomiting 4) Follow up with your primary care provider in 2-3 days [and follow up with ortho, urology etc] 5) Return to ER if you should have any new or worsening symptoms such as, unable to hold down fluids despite use of anti-nausea medications and the small volume oral rehydration strategy. Prescriptions: New ondansetron 4 mg tablet,disintegrating 4 mg PO Q6-8H PRN (Reason: nausea and vomiting) Qty: 15 RF: 0 No Action promethazine 12.5 mg suppository 12.5 mg VT Q4-6H PRN (Reason: nausea and vomiting) Qty: 12 RF: 0 ondansetron 4 mg tablet,disintegrating 4 mg PO TID-QID PRN (Reason: nausea and vomiting) Qty: 10 RF: 0 Vitamin 27 mg iron- 0.8 mg Tablet 1 tab PO DAILY RF: 0 Referrals: Adriana Bullock PA-C [Primary Care Provider] - Mary Rodriguez DO [Physician] -
[2019-04-15 09:13] LABS: Add Manual Diff / Slide Review NO; Basophils Absolute Auto 0 /uL (0-100); Basophils Percent Auto 0.5 % (0-2); Eosinophils Absolute Auto 0 /uL (0-450); Eosinophils Percent Auto 0.4 % (2-4); Hematocrit 41.7 % (36-46); Hemoglobin 14.3 g/dL (12.0-16.0); Lymphocytes Absolute Auto 2300 /uL (1100-4500); Lymphocytes Percent Auto 28.7 % (25-40); Mean Corpuscular HGB Conc 34.3 % (30-36); Mean Corpuscular Hemoglobin 30.8 PG (26-34); Mean Corpuscular Volume 89.8 fL (80-100); Monocytes Absolute Auto 600 /uL (0-900); Monocytes Percent Auto 7.3 % (3-14); Neutrophils Absolute Auto 5000 /uL (1500-7000); Neutrophils Percent Auto 63.1 % (50-75); Platelet Count 226 X10^3/uL (150-400); Red Blood Cell Count 4.65 X10^6/uL (4.0-5.2); Red Cell Distribution Width 12.7 % (11.6-14.8); White Blood Cell Count 7.9 X10^3/uL (4.5-11.0)
[2019-04-15] MEDS: SODIUM CHLORIDE 0.9% 1,000 ML 1000 ML IV ×2 (09:14→11:35)
[2019-04-15] MEDS: ONDANSETRON 4 MG/2 ML INJ IV (09:15)
[2019-04-15 09:19] LABS: Alanine Aminotransferase 48 IU/L (9-52); Albumin 4.1 g/dL (3.5-5.0); Albumin Globulin Ratio 1.5 (1.0-2.8); Alkaline Phosphatase 49 U/L (38-126); Aspartate Aminotransferase 33 IU/L (14-36); Bilirubin Total 0.7 mg/dL (0.2-1.3); Blood Urea Nitrogen 5 mg/dL (7-17); Calcium 9.2 mg/dL (8.4-10.2); Carbon Dioxide 22 mmol/L (22-32); Chloride 103 mmol/L (98-107); Estimated Glomerular Filt Rate > 60.0 mL/min (>60); Globulin 2.8 g/dL (1.7-4.1); Glucose 94 mg/dL (70-100); HEMOLYSIS < 15 (0-50); Potassium 3.9 mmol/L (3.4-5.1); Sodium 136 mmol/L (137-145); Total Protein 6.9 g/dL (6.3-8.2)
[2019-04-15] MEDS: ACETAMINOPHEN 325 MG TABLET 650 MG PO (09:21)
[2019-04-15 10:43] VITALS: BP 109/67; PULSE 84; RESP 18; O2SAT 99
[2019-04-15 12:51] VITALS: BP 109/59; PULSE 62; RESP 14; O2SAT 99
[2019-04-15 12:54] LABS: Urine Amphetamines Negative (Negative); Urine Barbiturates Negative (Negative); Urine Benzodiazepines Negative (Negative); Urine Cocaine Negative (Negative); Urine MDMA Negative (Negative); Urine Methadone Negative (Negative); Urine Methamphetamines Negative (Negative); Urine Morphine/Opi cutoff 2000 Negative (Negative); Urine Oxycodone Negative (Negative); Urine Phencyclidine Negative (Negative); Urine Tetrahydrocannabinol Positive (Negative); Urine Tricyclic Antidepressant Negative (Negative)
== END 2019-04-15 13:00 | disposition home or self-care (01) ==
PROVIDERS: Emergency Provider Emergency Medicine; Family Provider Physician Assistant; PCP Physician Assistant
DX: O21.0 Mild hyperemesis gravidarum (principal); Z3A.00 Weeks of gestation of pregnancy not specified
CPT/HCPCS: 36591; 76801; 76817; 80053; 80305; 81003; 85025; 96361; 96374; 99283; 99284; J2405

== ENCOUNTER → 2019-04-29 11:57 | Outpatient (CLI) | payer OTHER, MEDICAID, SELFPAY | PROVIDERS: Family Provider Physician Assistant; PCP Physician Assistant; Visit Provider Family Medicine | DX: Z34.91 Encounter for supervision of normal pregnancy, unspecified, first trimester (principal) | CPT/HCPCS: 87086 ==

== ENCOUNTER 2019-05-25 13:39 | Emergency (ER) | payer OTHER, MEDICAID, SELFPAY ==
[2019-05-25 13:45] VITALS: BP 121/79; PULSE 87; RESP 15; TEMP 36.6; O2SAT 98; BMI 41.3
--- NOTE | 2019-05-25 14:21 | ED_ITS ---
HPI - Abdominal Pain <NICCI Mcclendon - Last Filed: 05/25/19 21:36> General Chief Complaint: Abdominal Pain Stated Complaint: Need Liquids, Migraine, Cramping, 17 Wks Preg Time Seen by Provider: 05/25/19 13:56 Source: patient Mode of arrival: ambulatory Limitations: no limitations History of Present Illness HPI narrative: 23-year-old female who is 17 weeks , history of hyperem esis, , presents emergency department today complaining of lower abdominal cramping for the past week, she states she experiences current multiple times in our in she describes it possible low-grade contractions. Patient denies vaginal discharge or bleeding. She states that she has had to migraines in the past week as well, she has a history of migraines and has been taking Tylenol for these episodes. Patient also reports that she had an episode last week where she felt like her ?blood pressure was high ?, she was unable to measure her blood pressure but felt like her blood was pulsating through her veins and reported an episode of blurry vision during this time-this resolved less than an hour. Her migraine at this time is described as a dull aching 5/10-she really reports that she has not taken Tylenol. Patient denies any chest pain, shortness of breath the this time, vision changes, neck pain and, nausea, vomiting, or diarrhea. MD complaint: abdominal pain Related Data Home Medications Medication Instructions Recorded Confirmed vit-iron fum-folic ac 1 tab PO QPM 03/18/19 05/25/19 [ Vitamin] Tums 1 tab PO PRN PRN 05/25/19 05/25/19 acetaminophen 325 mg PO PRN PRN 05/25/19 05/25/19 Previous Rx's Medication Instructions Recorded ondansetron 4 mg disintegrating 4 mg PO Q6-8H PRN #30 tab 04/29/19 tablet Allergies Allergy/AdvReac Type Severity Reaction Status Date / Time Latex, Natural Rubber Allergy Swelling Verified 05/25/19 13:54 adhesives Allergy Mild Hives and Uncoded 04/21/19 10:45 Blisters Review of Systems <NICCI Mcclendon - Last Filed: 05/25/19 21:36> Review of Systems Narrative: REVIEW OF SYSTEMS: GENERAL: Denies fever, chills, malaise, or wt. loss. HENT: No head trauma, sore throat, or dysphagia. EYES: No loss of vision, or irritation. CARDIOVASCULAR: No chest pain, palpitations, or orthopnea. RESPIRATORY: No shortness of breath or cough. GASTROINTESTINAL: Complains of abdominal pain and nausea, see HPI GENITOURINARY: No flank pain, urinary incontinence, hesitancy, frequency, or dysuria. No vaginal discharge or dyspareunia. Denies concerns for STIs MUSCULOSKELETAL: No pain, weakness, or trauma. INTEGUMENTARY: No rash, lesions, or pruritus. NEURO: No numbness, tingling, memory loss, confusion, or headaches. PSYCH: No behavior or mood changes. PFSH <NICCI Mcclendon - Last Filed: 05/25/19 21:36> Medical History Anxiety (Chronic) Bipolar disorder (Chronic) Depression (Chronic) Surgical History H/O dilation and curettage (Resolved) History of tonsillectomy (Resolved) Family History Mother Ovarian cancer Social History Smoking Status: Former smoker alcohol intake: former substance use type: marijuana Family History Mother Ovarian cancer Social History Smoking Status: Former smoker alcohol intake: former substance use type: marijuana Exam <NICCI Mcclendon - Last Filed: 05/25/19 21:36> Initial Vital Signs Initial Vital Signs: Vital Signs Temperature 97.9 F 05/25/19 13:45 Pulse Rate 87 05/25/19 13:45 Respiratory Rate 15 05/25/19 13:45 Blood Pressure 121/79 05/25/19 13:45 Pulse Oximetry 98 05/25/19 13:45 PHYSICAL EXAMINATION: GENERAL: Well groomed, alert, and cooperative. Answers questions promptly and appropriately. Vital signs noted. HENT: Normocephalic, atraumatic. Hearing intact. Oral mucosa is pink and moist. EYES: Conjunctiva pink, sclera white, no periorbital swelling. CARDIOVASCULAR: S1 and S2 sounds normal. Regular rate and rhythm, no murmurs, clicks, or bruits. No pedal edema. RESPIRATORY: Normal respiratory rate, trachea midline, airway patent. No stridor, nasal flaring or accessory muscle use. Lungs are clear in all ocampo without wheeze, rhonchi, or crackles. GASTROINTESTINAL: Bowel sounds normoactive. Abdomen is soft and non-tender. No organomegaly, no palpable masses. No vomiting occurred during emergency department stay. GENITALURINARY: No flank tenderness. MUSCULOSKELETAL: Normal gait and coordination. Equal tone and mass bilaterally. EXTREMITIES: CMS intact, no pedal edema. SKIN: Warm, dry, soft, appropriate color for ethnicity. No lesions, rashes, or wounds. NEURO: Alert and Oriented X 3. Good coordination. No ataxia, or sensory deficits, or cognitive issues. PSYCH: Appropriate affect and mood. <Deborah Grant MD - Last Filed: 05/26/19 07:11> Initial Vital Signs Initial Vital Signs: Vital Signs Temperature 97.9 F 05/25/19 13:45 Pulse Rate 87 05/25/19 13:45 Respiratory Rate 15 05/25/19 13:45 Blood Pressure 121/79 05/25/19 13:45 Pulse Oximetry 98 05/25/19 13:45 Course <NICCI Mcclendon - Last Filed: 05/25/19 21:36> Course Course Narrative: Patient was given 1 L fluid during her stay in the emergency department. After administration of fluid patient stated she was feeling much better. She reported she still had a mild headache but the severity of it decreased, she denied any cramping. His spoke with ZAID Wood about patient's elevated liver enzymes, proteinuria, headaches, and other symptoms. She stated it is most likely that the symptoms are caused by dehydration due to the patient's hyperemesis. She agreed that the patient is not per clinic to get this time. The patient had repeat normal blood pressures. Orders Ordered: Discontinued Medications Sodium Chloride (Normal Saline 0.9%) 1,000 mls @ 1,000 mls/hr IV BOLUS ONE Stop: 05/25/19 15:20 Last Infusion: 05/25/19 15:40 Dose: 0 mls/hr Documented by: Admin: 05/25/19 14:42 Dose: 1,000 mls/hr Documented by: MAXIM Consultations Consultation #1: Dr Win was consulted about elevated liver enzymes and present in her urine. Patient was also staffed with Dr. Grant. Vital Signs Vital signs: Vital Signs - 8 hr 05/25/19 13:45 05/25/19 16:30 Temperature 97.9 F Pulse Rate 87 83 Respiratory Rate 15 17 Blood Pressure 121/79 Blood Pressure [Left Arm] 113/72 Pulse Oximetry 98 100 <Deborah Grant MD - Last Filed: 05/26/19 07:11> Orders Ordered: Discontinued Medications Sodium Chloride (Normal Saline 0.9%) 1,000 mls @ 1,000 mls/hr IV BOLUS ONE Stop: 05/25/19 15:20 Last Infusion: 05/25/19 15:40 Dose: 0 mls/hr Documented by: Admin: 05/25/19 14:42 Dose: 1,000 mls/hr Documented by: MAXIM Vital Signs Vital signs: Vital Signs - 8 hr 05/25/19 13:45 05/25/19 16:30 Temperature 97.9 F Pulse Rate 87 83 Respiratory Rate 15 17 Blood Pressure 121/79 Blood Pressure [Left Arm] 113/72 Pulse Oximetry 98 100 MDM - Abdominal Pain <NICCI Mcclendon - Last Filed: 05/25/19 21:36> Medical Records Attestation: I reviewed the patient's medical records. Lab Data Attestation: I reviewed the patient's lab results. Result diagrams: 05/25/19 14:35 05/25/19 14:35 Labs: Lab Results 05/25/19 05/25/19 Range/Units 14:35 14:35 WBC 12.0 H (4.5-11.0) X10^3/uL RBC 4.36 (4.0-5.2) X10^6/uL Hgb 13.4 (12.0-16.0) g/dL Hct 39.2 (36-46) % MCV 90.0 (80-100) fL MCH 30.7 (26-34) PG MCHC 34.1 (30-36) % RDW 12.2 (11.6-14.8) % Plt Count 222 (150-400) X10^3/uL Neut % (Auto) 72.9 (50-75) % Lymph % (Auto) 20.2 L (25-40) % Coffey % (Auto) 6.1 (3-14) % Eos % (Auto) 0.3 L (2-4) % Baso % (Auto) 0.5 (0-2) % Neut # (Auto) 8700 H (3506-8487) /uL Lymph # (Auto) 2400 (7486-5611) /uL Coffey # (Auto) 700 (0-900) /uL Eos # (Auto) 0 (0-450) /uL Baso # (Auto) 100 (0-100) /uL Sodium 137 (137-145) mmol/L Potassium 3.6 (3.4-5.1) mmol/L Chloride 102 (98-107) mmol/L Carbon Dioxide 23 (22-32) mmol/L BUN 5 L (7-17) mg/dL Creatinine 0.40 L (0.52-1.04) mg/dL Estimated GFR > 60.0 (>60) mL/min BUN/Creatinine Ratio 12.5 (6-22) Glucose 74 (70-100) mg/dL Calcium 9.1 (8.4-10.2) mg/dL Total Bilirubin 0.5 (0.2-1.3) mg/dL AST 45 H (14-36) IU/L ALT 69 H (9-52) IU/L Alkaline Phosphatase 49 (38-126) U/L Total Protein 6.8 (6.3-8.2) g/dL Albumin 4.0 (3.5-5.0) g/dL Globulin 2.8 (1.7-4.1) g/dL Albumin/Globulin Ratio 1.4 (1.0-2.8) Lipase 58 (23-300) U/L Point of care testing: Urine Dip Bedside Urine Glucose Negative Bedside Urine Bilirubin + 1 Bedside Urine Ketone + 15 Urine Specific Charlotte 1.015 Bedside Urine Occult Blood - Negative Bedside Urine pH 6.5 Bedside Urine Protein +/- 15 Bedside Urine Urobilinogen - Negative Bedside Urine Nitrite - Negative Bedside Urine Leukocytes - Negative Esterase Imaging Data US - abdomen: Radiologist's impression: [address] [address] Ultrasound Report Signed Patient: Chloé Ortiz LMR#: [id number] : 1995Acct:[id number] Age/Sex: 23 / FDate of Service: 05/25/19 Loc: ED Accession Number: [id number] Procedure: US OB limited Ordering Provider: Tammi Alcaraz PROCEDURE: US OB LIMITED INDICATIONS: CRAMPING X 1 WEEK, 17 WKS OUTSIDE/PRIOR DATING DATA: Last menstrual period (LMP): 01/25/2019. LMP-based estimated date of delivery (IJEOMA): 11/01/2019. First dating scan (date and location): 03/10/2019. Estimated date of delivery (IJEOMA) from first dating scan: 11/02/2019. TECHNIQUE: Real-time scanning was performed of the fetus, with image documentation and biometric measurements. Endovaginal scanning: Not performed COMPARISON: [facility], OB <= 14 WEEKS FETUS, 04/15/2019, 9:35. FINDINGS: General: A single living intrauterine gestation is present. Presentation: Breech. Placenta: Placental position is posterior, without previa. Amniotic fluid index: n.a. heart rate: 155 beats per minute. Maternal cervical canal: 3.6 cm long. Normal lower limit is 2.5 cm. Other: Subchorionic hematoma seen on the last scan is no longer visualized. IMPRESSION: 1. A single living intrauterine gestation with an estimated gestational age of 17 weeks 0 day corresponding to ultrasound IJEOMA initialultrasound. 2. No abnormality is present on ultrasound. The subchorionic hematoma seen on the last exam is no longer visualized. Dictated by: Megan Simmons M.D. on 05/25/2019 at 15:09 Approved by: Megan Simmons M.D. on 05/25/2019 at 15:15 MDM Narrative Medical decision making narrative: Differential includes dehydration (most likely due to hyperemesis, decrease of symptoms with administration of fluid, normal blood pressures), preeclampsia (less likely as patient is only 17 weeks as noted on ultrasound, normal blood pressures, only slightly elevated liver enzymes), gallbladder/pancreatic issues (less likely due to right upper quadrant pain, normal lipase), infectious (less likely due to lack of systemic symptoms such as fever, tachycardia, or other complaints shortness of breath). I noted patient's elevated white blood cell count I believe this is most likely due to and dehydration. Less concern for threatened miscarriage due to abnormal findings on ultrasound and lack of vaginal bleeding. Very strict return precautions were given and follow-up instructions discussed. <Deborah Grant MD - Last Filed: 05/26/19 07:11> Lab Data Labs: Lab Results 05/25/19 05/25/19 Range/Units 14:35 14:35 WBC 12.0 H (4.5-11.0) X10^3/uL RBC 4.36 (4.0-5.2) X10^6/uL Hgb 13.4 (12.0-16.0) g/dL Hct 39.2 (36-46) % MCV 90.0 (80-100) fL MCH 30.7 (26-34) PG MCHC 34.1 (30-36) % RDW 12.2 (11.6-14.8) % Plt Count 222 (150-400) X10^3/uL Neut % (Auto) 72.9 (50-75) % Lymph % (Auto) 20.2 L (25-40) % Coffey % (Auto) 6.1 (3-14) % Eos % (Auto) 0.3 L (2-4) % Baso % (Auto) 0.5 (0-2) % Neut # (Auto) 8700 H (4269-7446) /uL Lymph # (Auto) 2400 (7026-1823) /uL Coffey # (Auto) 700 (0-900) /uL Eos # (Auto) 0 (0-450) /uL Baso # (Auto) 100 (0-100) /uL Sodium 137 (137-145) mmol/L Potassium 3.6 (3.4-5.1) mmol/L Chloride 102 (98-107) mmol/L Carbon Dioxide 23 (22-32) mmol/L BUN 5 L (7-17) mg/dL Creatinine 0.40 L (0.52-1.04) mg/dL Estimated GFR > 60.0 (>60) mL/min BUN/Creatinine Ratio 12.5 (6-22) Glucose 74 (70-100) mg/dL Calcium 9.1 (8.4-10.2) mg/dL Total Bilirubin 0.5 (0.2-1.3) mg/dL AST 45 H (14-36) IU/L ALT 69 H (9-52) IU/L Alkaline Phosphatase 49 (38-126) U/L Total Protein 6.8 (6.3-8.2) g/dL Albumin 4.0 (3.5-5.0) g/dL Globulin 2.8 (1.7-4.1) g/dL Albumin/Globulin Ratio 1.4 (1.0-2.8) Lipase 58 (23-300) U/L Point of care testing: Urine Dip Bedside Urine Glucose Negative Bedside Urine Bilirubin + 1 Bedside Urine Ketone + 15 Urine Specific [place] 1.015 Bedside Urine Occult Blood - Negative Bedside Urine pH 6.5 Bedside Urine Protein +/- 15 Bedside Urine Urobilinogen - Negative Bedside Urine Nitrite - Negative Bedside Urine Leukocytes - Negative Esterase Discharge Plan Departure Patient Disposition: Home Clinical Impression: Acute dehydration Discharge Date/Time: 05/25/19 17:11 Instructions: DI for Dehydration -- Adult Activity Restrictions/Additional Instructions: Thank you for entrusting me with your care today. As discussed, your liver enzy mes were slightly elevated today, but the special effects makeup artist agrees that your labs and symptoms are most likely caused by dehydration. Please continue to drink lots of water and continue to follow with the infusion clinic as planned. Please schedule an appointment with your special effects makeup artist in the next 1-2 weeks for re- evaluation. Return to the emergency department if you develops chest pain, shortness of breath, syncope, severe headaches, severe abdominal pain, or other concerning symptoms. Prescriptions: No Action ondansetron 4 mg tablet,disintegrating 4 mg PO Q6-8H PRN (Reason: nausea and vomiting) Qty: 30 RF: 0 Vitamin 27 mg iron- 0.8 mg Tablet 1 tab PO QPM RF: 0 acetaminophen 325 mg Tablet 325 mg PO PRN PRN (Reason: pain) RF: 0 Tums 1 tab PO PRN PRN (Reason: Indigestion) RF: 0 Referrals: Mary Rodriguez DO [Primary Care Provider] -
[2019-05-25] MEDS: SODIUM CHLORIDE 0.9% 1,000 ML 1000 ML IV (14:42)
[2019-05-25 14:46] LABS: Add Manual Diff / Slide Review NO; Basophils Absolute Auto 100 /uL (0-100); Basophils Percent Auto 0.5 % (0-2); Eosinophils Absolute Auto 0 /uL (0-450); Eosinophils Percent Auto 0.3 % (2-4); Hematocrit 39.2 % (36-46); Hemoglobin 13.4 g/dL (12.0-16.0); Lymphocytes Absolute Auto 2400 /uL (1100-4500); Lymphocytes Percent Auto 20.2 % (25-40); Mean Corpuscular HGB Conc 34.1 % (30-36); Mean Corpuscular Hemoglobin 30.7 PG (26-34); Monocytes Absolute Auto 700 /uL (0-900); Monocytes Percent Auto 6.1 % (3-14); Neutrophils Absolute Auto 8700 /uL (1500-7000); Neutrophils Percent Auto 72.9 % (50-75); Platelet Count 222 X10^3/uL (150-400); Red Blood Cell Count 4.36 X10^6/uL (4.0-5.2); Red Cell Distribution Width 12.2 % (11.6-14.8)
[2019-05-25 14:54] LABS: Alanine Aminotransferase 69 IU/L (9-52); Albumin Globulin Ratio 1.4 (1.0-2.8); Alkaline Phosphatase 49 U/L (38-126); Aspartate Aminotransferase 45 IU/L (14-36); BUN Creatinine Ratio 12.5 (6-22); Bilirubin Total 0.5 mg/dL (0.2-1.3); Blood Urea Nitrogen 5 mg/dL (7-17); Calcium 9.1 mg/dL (8.4-10.2); Carbon Dioxide 23 mmol/L (22-32); Chloride 102 mmol/L (98-107); Estimated Glomerular Filt Rate > 60.0 mL/min (>60); Globulin 2.8 g/dL (1.7-4.1); Glucose 74 mg/dL (70-100); HEMOLYSIS < 15 (0-50); Lipase 58 U/L (23-300); Potassium 3.6 mmol/L (3.4-5.1); Sodium 137 mmol/L (137-145); Total Protein 6.8 g/dL (6.3-8.2)
[2019-05-25 16:30] VITALS: BP 113/72; PULSE 83; RESP 17; O2SAT 100
== END 2019-05-25 17:11 | disposition home or self-care (01) ==
PROVIDERS: Emergency Provider Nurse Practitioner; PCP Family Medicine
DX: E86.0 Dehydration (principal)
CPT/HCPCS: 36415; 36591; 76815; 80053; 81003; 83690; 85025; 96360; 99283; 99284

== ENCOUNTER → 2019-05-27 11:43 | Outpatient (CLI) | payer OTHER, MEDICAID, SELFPAY ==
[2019-05-27 12:20] LABS: Add Manual Diff / Slide Review NO; Basophils Absolute Auto 100 /uL (0-100); Basophils Percent Auto 0.9 % (0-2); Eosinophils Absolute Auto 100 /uL (0-450); Eosinophils Percent Auto 0.5 % (2-4); Hematocrit 38.6 % (36-46); Hemoglobin 13.4 g/dL (12.0-16.0); Lymphocytes Absolute Auto 2400 /uL (1100-4500); Lymphocytes Percent Auto 22.2 % (25-40); Mean Corpuscular HGB Conc 34.8 % (30-36); Mean Corpuscular Volume 89.1 fL (80-100); Monocytes Absolute Auto 700 /uL (0-900); Monocytes Percent Auto 6.4 % (3-14); Neutrophils Absolute Auto 7600 /uL (1500-7000); Platelet Count 229 X10^3/uL (150-400); Red Blood Cell Count 4.34 X10^6/uL (4.0-5.2); Red Cell Distribution Width 12.3 % (11.6-14.8); White Blood Cell Count 10.8 X10^3/uL (4.5-11.0)
[2019-05-27 12:28] LABS: Appearance Urine UA CLEAR; Bilirubin Urine UA NEGATIVE (NEGATIVE); Color Urine UA YELLOW; Glucose Urine UA NEGATIVE (Negative); Ketones Urine UA NEGATIVE (NEGATIVE); Leukocyte Esterase Urine UA NEGATIVE (NEGATIVE); Nitrite Urine UA NEGATIVE (Negative); Occult Blood Urine UA NEGATIVE (Negative); Protein Urine UA NEGATIVE (Negative); Urobilinogen Urine UA 0.2 E.U./dL (0.2)
[2019-05-27 12:45] LABS: Alanine Aminotransferase 49 IU/L (9-52); Albumin 3.6 g/dL (3.5-5.0); Albumin Globulin Ratio 1.5 (1.0-2.8); Alkaline Phosphatase 49 U/L (38-126); Aspartate Aminotransferase 25 IU/L (14-36); BUN Creatinine Ratio 13.3 (6-22); Bilirubin Total 0.3 mg/dL (0.2-1.3); Blood Urea Nitrogen 4 mg/dL (7-17); Calcium 9.2 mg/dL (8.4-10.2); Carbon Dioxide 19 mmol/L (22-32); Chloride 105 mmol/L (98-107); Estimated Glomerular Filt Rate > 60.0 mL/min (>60); Globulin 2.4 g/dL (1.7-4.1); Glucose 89 mg/dL (70-100); HEMOLYSIS < 15 (0-50); Potassium 3.9 mmol/L (3.4-5.1); Sodium 136 mmol/L (137-145)
[2019-05-27 16:16] LABS: Hepatitis B Surface Antigen NEGATIVE s/c (NEGATIVE); Rubella Antibody IgG 1.6 IU/mL (>15)
[2019-05-27 16:33] LABS: Hep C Virus Ab w/Reflex Quant NEGATIVE s/c (NEGATIVE)
[2019-05-31 16:05] LABS: RPR Screen NONREACTIVE
[2019-06-08 13:51] LABS: AFP, Serum 23.6 ng/mL; Calc Gestational Age 17.4; Cigarette Smoker N; Donated Egg NOT GIVEN; Donor Egg Age NOT GIVEN; Estriol, Free 0.85 ng/mL; Inhibin A, Dimeric 103 pg/mL; Maternal Weight 218 lbs; Number of Fetuses 1; Previous Pregnancy Down Syndro NOT GIVEN; hCG, MoM 0.57; hCG, Serum 12.1 IU/mL
== END ==
PROVIDERS: PCP Family Medicine; Visit Provider Family Medicine
DX: R74.0 Nonspecific elevation of levels of transaminase and lactic acid dehydrogenase [LDH] (principal); Z34.01 Encounter for supervision of normal first pregnancy, first trimester; Z3A.16 16 weeks gestation of pregnancy
CPT/HCPCS: 80053; 80055; 81003; 82105; 82677; 84702; 86336; 86787; 86803; 86850; 86900; 86901

== ENCOUNTER → 2019-06-07 10:01 | Outpatient (CLI) | payer OTHER, MEDICAID, SELFPAY | PROVIDERS: PCP Family Medicine; Visit Provider Nurse Practitioner Family | DX: N89.8 Other specified noninflammatory disorders of vagina (principal) | CPT/HCPCS: 87210 ==

== ENCOUNTER → 2019-06-15 09:10 | Outpatient (CLI) | payer OTHER, MEDICAID, SELFPAY ==
--- NOTE | 2019-06-15 09:13 | DI.US.S_ITS ---
PROCEDURE: US OB >= 14 WEEKS FETUS INDICATIONS: ANATOMY OUTSIDE/PRIOR DATING DATA: Last menstrual period (LMP): 01/25/2019. LMP-based estimated date of delivery (IJEOMA): 11/01/2019. First dating scan (date and location): 03/10/2019. Estimated date of delivery (IJEOMA) from first dating scan: 11/02/2019.. TECHNIQUE: Real-time scanning was performed of the fetus, with image documentation and biometric measurements. Endovaginal scanning: No COMPARISON: [facility], OB LIMITED, 05/25/2019, 14:57. FINDINGS: General: A single living intrauterine gestation is present. Presentation: Vertex. Placenta: Placental position is posterior, without previa. Amniotic fluid index: 18.4 cm, normal range is 5-24 cm. heart rate: 139 beats per minute. Maternal cervical canal: 4.4 cm long. Normal lower limit is 2.5 cm. biometrics: Biparietal diameter: 20 weeks 6 days Head circumference: 21 weeks 1 day Abdominal circumference: 20 weeks 1 day Femur length: 20 weeks Estimated gestational age from initial scan: 20 weeks Composite gestational age from present scan: 20 weeks 4 days Estimated weight and percentile: 339 g, 50th percentile Measurement variability for biometric dating: +/- 7 days from 14 weeks to 15 weeks 6 days gestation, +/- 10 days from 16 weeks to 21 weeks 6 days gestation, +/- 2 weeks from 22 weeks to 27 weeks 6 days gestation, +/- 3 weeks for 28 weeks gestation or later. weight reference: 4500 g or EFW >90/95% is considered macrosomia or large for gestational age. EFW <10% is small for gestational age. EFW 5% or less is considered intra-uterine growth restriction. Anatomic survey: Neuro: Ventricles are non-dilated at less than 10 mm. Cisterna magna is normal at 3-11 mm. Cerebellum is normal in size and morphology. Nuchal skin fold: Normal at less than 6 mm between 14-21 weeks gestational age. Face: Nose and lips, facial profile are normal. Spine: No evidence for spina bifida. Heart: Not well-visualized. Diaphragm: Diaphragm is intact. Stomach: Left-sided stomach is present. Kidneys: No hydronephrosis. Normal is less than 5 mm in 2nd trimester, less than 7 mm in 3rd trimester. Cord: 2 vessel cord present and insertion site not well-seen. Bladder: Normal in size. Extremities: All 4 extremities identified. IMPRESSION: 1. Single living IUP redemonstrated and interval growth is normal. 2. Normal placenta and amniotic fluid. 3. Abnormal 2 vessel umbilical cord. heart and cord insertion site not well-visualized. Recommend followup ultrasound. Dictated by: Silvano CEDENO Interpreted: Miguelito Ken MD on 06/15/2019 at 16:56 Approved by: Miguelito Ken M.D. on 06/15/2019 at 17:12
== END ==
PROVIDERS: PCP Family Medicine; Visit Provider Family Medicine
DX: Z36.89 Encounter for other specified antenatal screening (principal); Z3A.20 20 weeks gestation of pregnancy
CPT/HCPCS: 76811

== ENCOUNTER 2019-07-13 09:52 | Outpatient (CLI) | payer OTHER, MEDICAID, SELFPAY ==
--- NOTE | 2019-07-13 10:37 | PM.OBTRLD ---
Visit Information Visit Information Date of evaluation: 07/13/19 Reason for Evaluation: Yes non-stress test non-stress test reason: decreased movement PFSH Social History Smoking Status: Former smoker alcohol intake: former substance use type: marijuana Evaluation Evaluation Baseline heart rate: 150 Variability: Moderate (11-25) monitor accelerations: Present monitor decelerations: Absent Diagnosis, Plan/Disposition Final Diagnosis (1) Decreased movement: Current Visit: Yes Status: Acute Plan/Disposition Plan: Reactive NST. Safe for d/c home. Discussed proper kick counts, etc. OB Disposition: home
== END 2019-07-13 10:38 | disposition home or self-care (01) ==
LOC: OB 07-14 09:01
PROVIDERS: PCP Family Medicine; Visit Provider Family Medicine
DX: O36.8120 Decreased fetal movements, second trimester, not applicable or unspecified (principal); Z3A.24 24 weeks gestation of pregnancy
CPT/HCPCS: 59025; G0378; G0379

== ENCOUNTER → 2019-07-28 09:46 | Outpatient (CLI) | payer OTHER, MEDICAID, SELFPAY ==
[2019-07-28 11:33] LABS: Hematocrit 37.5 % (36-46); Hemoglobin 12.7 g/dL (12.0-16.0)
[2019-07-28 12:08] LABS: GTT (PREG) 1 Hour PP 50gm Dose 134 mg/dL (76-139)
== END ==
PROVIDERS: PCP Family Medicine; Visit Provider Family Medicine
DX: Z34.92 Encounter for supervision of normal pregnancy, unspecified, second trimester (principal); Z3A.25 25 weeks gestation of pregnancy
CPT/HCPCS: 36415; 82950; 85014; 85018

== ENCOUNTER → 2019-08-24 09:47 | Outpatient (CLI) | payer OTHER, MEDICAID, SELFPAY ==
--- NOTE | 2019-08-24 09:47 | DI.US.S_ITS ---
PROCEDURE: OB FOLLOW UP INDICATIONS: 2 VESSEL CORD, CHECK GROWTH OUTSIDE/PRIOR DATING DATA: Last menstrual period (LMP): 01/25/19. LMP-based estimated date of delivery (IJEOMA): 11/01/19. First dating scan (date and location): 03/10/19. Estimated date of delivery (IJEOMA) from first dating scan: 11/02/19. TECHNIQUE: Real-time scanning was performed of the fetus, with image documentation and biometric measurements. Endovaginal scanning: Deferred COMPARISON: [facility], OB <= 14 WEEKS FETUS, 03/10/2019, 11:20. [facility] OB <= 14 WEEKS FETUS, 04/15/2019, 9:35. [facility] OB >= 14 WEEKS FETUS, 06/15/2019, 9:30. FINDINGS: General: A single living intrauterine gestation is present. Presentation: Vertex. Placenta: Placental position is posterior, without previa. Amniotic fluid index: 16.3 cm, normal range is 5-24 cm. heart rate: 155 beats per minute. Maternal cervical canal: 3.6 cm long. Normal lower limit is 2.5 cm. biometrics: Biparietal diameter: 8.0 cm, 32 weeks, 2 days Head circumference: 30.1 cm, 33 weeks, 3 days Abdominal circumference: 27.3 cm, 31 weeks, 2 days Femur length: 5.5 cm, 29 weeks, one day Estimated gestational age from initial scan: 30 weeks, zero days. Composite gestational age from present scan: 30 weeks, 6 days Estimated weight and percentile: 1668 g plus or -247 g, 71st percentile Other: A 4 chambered heart was better visualized on the current study. Cardiac outflow tracts appear normal. A 3 mm pericardial effusion is noted. cord insertion site is seen. A 2 vessel umbilical cord is again documented. IMPRESSION: 1. Single living intrauterine with appropriate growth since the prior study. Composite gestational age by today's study is within 6 days of the initially assigned gestational age. 2. Small pericardial effusion surrounding a 4 chambered heart is now seen. In the setting of a 2 vessel umbilical cord, correlate with karyotyping and tertiary care followup. Dictated by: Jennifer Trent M.D. on 08/24/2019 at 11:28 Approved by: Jennifer Trent M.D. on 08/24/2019 at 11:41
== END ==
PROVIDERS: PCP Family Medicine; Visit Provider Family Medicine
DX: O09.893 Supervision of other high risk pregnancies, third trimester (principal); Z3A.30 30 weeks gestation of pregnancy
CPT/HCPCS: 76816

== ENCOUNTER 2019-09-04 16:30 | Outpatient (CLI) | payer OTHER, MEDICAID, SELFPAY ==
--- NOTE | 2019-09-04 17:33 | PM.OBTRLD ---
Visit Information Visit Information Date of evaluation: 09/04/19 Primary OB Provider: Mary Rodriguez On-call OB Provider: Salina Win Reason for Evaluation: Yes pre-term labor Vital Signs Vital Signs: Blood pressure 120/64, temperature 97.6, pulse of 106 PFSH Social History Smoking Status: Former smoker alcohol intake: former substance use type: marijuana Exam Narrative Exam Narrative: External genitalia with some erythema. Speculum exam the cervix appears long and closed. There is a white discharge patient states she did put Monistat cream in last night. fibronectin obtained. Cervix is long and closed by palpation. The presenting part is out of the pelvis. Evaluation Evaluation Baseline heart rate: 150 Variability: Average (6-10) monitor accelerations: Present monitor decelerations: Absent Contraction Frequency (minutes): 0 Category of Tracing: I Cervical dilation (cm): 0 Cervical effacement (%): 0 station: -4 Diagnosis, Plan/Disposition Final Diagnosis (1) Vulvar itching: Current Visit: Yes Status: Acute (2) 32 weeks gestation of : Current Visit: Yes Status: Acute (3) Vaginal discharge during in third trimester: Current Visit: Yes Status: Acute Plan/Disposition Plan: Patient came in concerned she might have lost her mucus plug and was having mild contractions however by the time she arrived they had stopped. No contractions on the monitor. Cervix is long and closed. She thought she had a yeast infection although wet prep did not reveal any yeast. fibronectin obtained. Patient advised she could use some hydrocortisone ointment externally. Okay to finish the Monistat. Keep her routine OB appointment. OB Disposition: home
[2019-09-04 18:19] LABS: Fetal Fibronectin Negative
== END 2019-09-04 17:45 | disposition home or self-care (01) ==
LOC: OB 09-09 11:17
PROVIDERS: PCP Family Medicine; Visit Provider Specialist
DX: O26.893 Other specified pregnancy related conditions, third trimester (principal); N89.8 Other specified noninflammatory disorders of vagina; L29.2 Pruritus vulvae; Z3A.31 31 weeks gestation of pregnancy
CPT/HCPCS: 59025; 82731; G0378; G0379

== ENCOUNTER 2019-09-18 10:06 | Emergency (ER) | payer OTHER, MEDICAID, SELFPAY ==
[2019-09-18] VITALS (9 sets, daily range): BP systolic 107–136; BP diastolic 57–81; PULSE 94–125; RESP 16–22; TEMP 36.9–38.3; O2SAT 96–98; BMI 42.0
[2019-09-18 10:54] LABS: Influenza A - CEPHEID Flu A NEGATIVE (NEGATIVE); Influenza B - CEPHEID Flu B POSITIVE (NEGATIVE)
--- NOTE | 2019-09-18 11:26 | ED_ITS ---
HPI - URI/Sore Throat <Dung NICCI Saldivar - Last Filed: 09/18/19 14:48> General Chief Complaint: Upper Respiratory Symptoms Stated Complaint: FLU Time Seen by Provider: 09/18/19 11:01 Source: patient Mode of arrival: Family Vehicle Limitations: no limitations History of Present Illness HPI Narrative: This is a 24-year-old female, nonsmoker, who presents to ED with mother with chief complain of flu-like symptoms such as headache, fever/chills, nausea/vomiting/diarrhea, coughing, ear pain, short of breath and coughing which started 2 days ago. Patient reports had 1 episode of vomiting and diarrhea but currently is not nauseated. Patient reports she has a ill contact from her boyf enedina. She reports actually today feels better with fever and chills as compared to a day before. She is 34 week EGA but unsure of last LMP. This is and patient denies vaginal bleeding but reports low abdominal cramping, denies urinary symptoms. Patient reports has been feeling movement. Patient denies previous history of asthma or respiratory disease. Related Data Home Medications Medication Instructions Recorded Confirmed Tums 1 tab PO PRN PRN 05/25/19 06/07/19 acetaminophen 325 mg PO PRN PRN 05/25/19 06/07/19 Previous Rx's Medication Instructions Recorded vitamins-iron fumarate 27 1 tab PO QPM #90 tab 05/27/19 mg iron-folic acid 0.8 mg tablet ondansetron 4 mg disintegrating 4 mg PO Q6-8H PRN #30 tab 06/06/19 tablet amoxicillin 500 mg capsule 500 mg PO BID #20 cap 06/07/19 lidocaine HCl 2 % mucosal solution 1 applictn MUCOUS MEMBRANE TID PRN 06/07/19 #15 ml metronidazole 250 mg tablet 250 mg PO TID #21 tab 06/07/19 nitrofurantoin macrocrystal 100 mg PO BID 5 Days #10 cap 09/18/19 ondansetron 4 mg PO Q6-8H PRN #7 tab 09/18/19 oseltamivir [Tamiflu] 75 mg PO BID 5 Days #10 cap 09/18/19 Allergies Allergy/AdvReac Type Severity Reaction Status Date / Time Latex, Natural Rubber Allergy Swelling Verified 09/18/19 10:22 adhesives Allergy Mild Hives and Uncoded 09/18/19 10:22 Blisters Review of Systems <[facility] - Last Filed: 09/18/19 14:48> Review of Systems Narrative: General: Reports fever and chills, fatigue. HEENT: Reports pain behind eyes and right side ear pain, sore throat. Denies difficulty swallowing, dizziness. Respiratory: Reports short of breath, wheezing and cough. Denies hemoptysis, sputum. Cardiovascular: Denies chest pain, palpitations, orthopnea, edema. Gastrointestinal: Reports 1 episode of nausea and vomiting, abdominal cramping in suprapubic region. Denies constipation, melena. : Denies dysuria, frequency, incontinence, hematuria, urinary retention. Musculoskeletal: Reports myalgia and arthralgia. Skin: Denies rash, skin lesions, or other. Neurologic: Denies weakness, numbness, change in speech, confusion, seizures, incoordination. Psychiatric: No concerning psychosocial issues. 12-point review of systems is negative except for those stated above. Patient History <[facility] - Last Filed: 09/18/19 14:48> Social History Smoking Status: Former smoker alcohol intake: former substance use type: marijuana Smoking Status: Former smoker alcohol intake frequency: holidays/special occasions only Substance Use Type: does not use Exam <[facility] - Last Filed: 09/18/19 14:48> Narrative Exam Narrative: GEN: Alert, oriented x 3, well appearing and nourished, and in no acute distress. Head: Normal cephalic, atraumatic. No scalp or temporal tenderness, palpable mass or rash. EYES: Pupils are equal, round, and reactive to light and accommodation. Extraocular muscles are intact bilaterally. There is no subconjunctival hemorrhage, exudate and sclera non-icteric. ENT: Bilateral auditory canals clear and tympanic membranes injected. Hearing grossly intact. Nose without bleeding, (+) purulent discharge with swelling and erythema to tubinates w/o deviation. Facial sinuses nontender to palpate. Mucous membrane moist, no mucosal lesion. Throat without erythema, tonsillar hypertrophy or exudate. Uvula in midline, airway patent. Neck: Trachea in midline. No JVD, non-tender without lymphadenopathy. No m asses or thyroid megaly. Supple, non-tender and no meningeal signs. CARDIAC: Normal regular rate and rhythm without murmurs, gallops, or rubs. No chest wall tenderness. No peripheral edema, cyanosis or pallor. Capillary refill is less than 2 seconds. RESPIRATORY: Lungs are clear to auscultate bilaterally. No wheezes, rales, or rhonchi. No stridor, respiratory distress, increase work of breathing, or accessary muscle used. ABD: Abdomen soft, nontender and non-distended. No guarding or rebound tenderness to palpate. Bowel sounds are normal in all 4 quadrants. There is no palpable masses or organomegaly. EXT: Full painless ROM of all extremities with no loss of sensation, strength, effusion or edema. SKIN: Warm, dry, normal color for patient. No erythema, lesions or rash over visible areas. BACK: Nontender without deformity or crepitance. No flank tenderness. NEUROLOGICAL: Alert and oriented to place, time and person. Sensation and motor function intact bilaterally. No facial droops, dysphasia. PSYCHIATRIC: Good judgement and reason, without hallucinations, abnormal affect or abnormal behaviors during the examination. Patient is not suicidal. Initial Vital Signs Initial Vital Signs: Vital Signs Temperature 101.0 F H 09/18/19 10:17 Pulse Rate 125 H 09/18/19 10:17 Respiratory Rate 09/18/19 10:17 Blood Pressure 136/81 09/18/19 10:17 Pulse Oximetry 97 09/18/19 10:17 <Brit Bailey DO - Last Filed: 09/18/19 17:53> Initial Vital Signs Initial Vital Signs: Vital Signs Temperature 101.0 F H 09/18/19 10:17 Pulse Rate 125 H 09/18/19 10:17 Respiratory Rate 09/18/19 10:17 Blood Pressure 136/81 09/18/19 10:17 Pulse Oximetry 97 09/18/19 10:17 Scores <NICCI Cope - Last Filed: 09/18/19 14:48> GCS Brendan coma scale eye opening: Spontaneous Brendan coma scale verbal response: Orientated Brendan coma scale motor response: Obey commands [place] coma scale total score: 15 Course <NICCI Cope - Last Filed: 09/18/19 14:48> Orders Ordered: ED Orders 09/18/19 10:29 Influenza A & B (PCR) Stat 09/18/19 11:44 Basic Metabolic Panel Stat Complete Blood Count AUTO DIFF Stat 09/18/19 13:37 Urine Culture Stat Urine Microscopic Stat Discontinued Medications Acetaminophen (Tylenol) 975 mg PO NOW ONE Stop: 09/18/19 10:29 Last Admin: 09/18/19 11:31 Dose: 975 mg Documented by: DUY Fluticasone Propionate (Flonase) 1 spray NASAL NOW ONE Stop: 09/18/19 12:26 Last Admin: 09/18/19 13:13 Dose: 1 spray Documented by: DUY Sodium Chloride (Normal Saline 0.9%) 1,000 mls @ 1,000 mls/hr IV BOLUS PRN PRN Reason: Fluid replacement Last Infusion: 09/18/19 12:47 Dose: 0 mls/hr Documented by: Admin: 09/18/19 11:41 Dose: 1,000 mls/hr Documented by: DUY Sodium Chloride (Normal Saline 0.9%) 1,000 mls @ 1,000 mls/hr IV BOLUS ONE Stop: 09/18/19 13:24 Last Infusion: 09/18/19 14:39 Dose: 0 mls/hr Documented by: Admin: 09/18/19 12:51 Dose: 1,000 mls/hr Documented by: DUY Nitrofurantoin Macrocrystals (Macrobid 100 Mg Capsule) 100 mg PO NOW ONE Stop: 09/18/19 14:32 Last Admin: 09/18/19 14:39 Dose: 100 mg Documented by: DUY Oseltamivir Phosphate (Tamiflu) 75 mg PO NOW ONE Stop: 09/18/19 11:20 Last Admin: 09/18/19 11:32 Dose: 75 mg Documented by: DUY Reevaluation(s) Reevaluation #1: non-stress test being conducted by L&D nurse with FHR in 140-160's Time: 12:28 Vital Signs Vital signs: Vital Signs - 8 hr 09/18/19 10:17 09/18/19 11:50 09/18/19 11:59 Temperature 101.0 F H Pulse Rate 125 H 104 H Respiratory Rate 20 22 Blood Pressure 136/81 Blood Pressure [Right Arm] 122/69 125/76 Pulse Oximetry 97 96 09/18/19 12:37 09/18/19 12:52 09/18/19 13:00 Temperature 98.5 F 98.5 F Pulse Rate 98 H Respiratory Rate 16 Blood Pressure Blood Pressure [Right Arm] 112/57 L Pulse Oximetry 98 09/18/19 13:45 09/18/19 14:20 09/18/19 14:30 Temperature Pulse Rate 102 H 94 H 94 H Respiratory Rate 18 16 Blood Pressure Blood Pressure [Right Arm] 136/57 L 107/60 115/67 Pulse Oximetry 97 97 97 <Brit Bailey DO - Last Filed: 09/18/19 17:53> Orders Ordered: ED Orders 09/18/19 10:29 Influenza A & B (PCR) Stat 09/18/19 11:44 Basic Metabolic Panel Stat Complete Blood Count AUTO DIFF Stat 09/18/19 13:37 Urine Culture Stat Urine Microscopic Stat Discontinued Medications Acetaminophen (Tylenol) 975 mg PO NOW ONE Stop: 09/18/19 10:29 Last Admin: 09/18/19 11:31 Dose: 975 mg Documented by: DUY Fluticasone Propionate (Flonase) 1 spray NASAL NOW ONE Stop: 09/18/19 12:26 Last Admin: 09/18/19 13:13 Dose: 1 spray Documented by: DUY Sodium Chloride (Normal Saline 0.9%) 1,000 mls @ 1,000 mls/hr IV BOLUS PRN PRN Reason: Fluid replacement Last Infusion: 09/18/19 12:47 Dose: 0 mls/hr Documented by: Admin: 09/18/19 11:41 Dose: 1,000 mls/hr Documented by: DUY Sodium Chloride (Normal Saline 0.9%) 1,000 mls @ 1,000 mls/hr IV BOLUS ONE Stop: 09/18/19 13:24 Last Infusion: 09/18/19 14:39 Dose: 0 mls/hr Documented by: Admin: 09/18/19 12:51 Dose: 1,000 mls/hr Documented by: DUY Nitrofurantoin Macrocrystals (Macrobid 100 Mg Capsule) 100 mg PO NOW ONE Stop: 09/18/19 14:32 Last Admin: 09/18/19 14:39 Dose: 100 mg Documented by: DUY Oseltamivir Phosphate (Tamiflu) 75 mg PO NOW ONE Stop: 09/18/19 11:20 Last Admin: 09/18/19 11:32 Dose: 75 mg Documented by: DUY Vital Signs Vital signs: Vital Signs - 8 hr 09/18/19 10:17 09/18/19 11:50 09/18/19 11:59 Temperature 101.0 F H Pulse Rate 125 H 104 H Respiratory Rate 20 22 Blood Pressure 136/81 Blood Pressure [Right Arm] 122/69 125/76 Pulse Oximetry 97 96 09/18/19 12:37 09/18/19 12:52 09/18/19 13:00 Temperature 98.5 F 98.5 F Pulse Rate 98 H Respiratory Rate 16 Blood Pressure Blood Pressure [Right Arm] 112/57 L Pulse Oximetry 98 09/18/19 13:45 09/18/19 14:20 09/18/19 14:30 Temperature Pulse Rate 102 H 94 H 94 H Respiratory Rate 18 16 Blood Pressure Blood Pressure [Right Arm] 136/57 L 107/60 115/67 Pulse Oximetry 97 97 97 MDM - URI/Sore Throat <NICCI Cope - Last Filed: 09/18/19 14:48> Differential Diagnosis Differential diagnosis: Likely upper respiratory infection, viral infection and influenza Medical Records Attestation: I reviewed the patient's medical records. Lab Data Attestation: I reviewed the patient's lab results. Result diagrams: 09/18/19 11:44 09/18/19 11:44 Labs: Lab Results 09/18/19 09/18/19 09/18/19 Range/Units 10:29 11:44 11:44 WBC 8.7 (4.5-11.0) X10^3/uL RBC 4.53 (4.0-5.2) X10^6/uL Hgb 13.4 (12.0-16.0) g/dL Hct 39.2 (36-46) % MCV 86.4 (80-100) fL MCH 29.5 (26-34) PG MCHC 34.1 (30-36) % RDW 12.7 (11.6-14.8) % Plt Count 208 (150-400) X10^3/uL Neut % (Auto) 78.4 H (50-75) % Lymph % (Auto) 9.4 L (25-40) % [place] % (Auto) 11.9 (3-14) % Eos % (Auto) 0.1 L (2-4) % Baso % (Auto) 0.2 (0-2) % Neut # (Auto) 6900 (8952-7062) /uL Lymph # (Auto) 800 L (8204-0733) /uL [place] # (Auto) 1000 H (0-900) /uL Eos # (Auto) 0 (0-450) /uL Baso # (Auto) 0 (0-100) /uL Sodium 134 L (137-145) mmol/L Potassium 3.5 (3.4-5.1) mmol/L Chloride 103 (98-107) mmol/L Carbon Dioxide 22 (22-32) mmol/L BUN 4 L (7-17) mg/dL Creatinine 0.40 L (0.52-1.04) mg/dL Estimated GFR > 60.0 (>60) mL/min BUN/Creatinine Ratio 10.0 (6-22) Glucose 105 H (70-100) mg/dL Calcium 9.0 (8.4-10.2) mg/dL Urine RBC (0-5/HPF) Urine WBC (0-5/HPF) Ur Squamous Epith Cells (0-5/HPF) Amorphous Sediment Urine Bacteria (None) Urine Mucus (Negative) Ur Culture Indicated? Influenza A (RT-PCR) Flu a negative (NEGATIVE) Influenza B (RT-PCR) Flu b positive H (NEGATIVE) 09/18/19 Range/Units 13:37 WBC (4.5-11.0) X10^3/uL RBC (4.0-5.2) X10^6/uL Hgb (12.0-16.0) g/dL Hct (36-46) % MCV (80-100) fL MCH (26-34) PG MCHC (30-36) % RDW (11.6-14.8) % Plt Count (150-400) X10^3/uL Neut % (Auto) (50-75) % Lymph % (Auto) (25-40) % [place] % (Auto) (3-14) % Eos % (Auto) (2-4) % Baso % (Auto) (0-2) % Neut # (Auto) (6735-0476) /uL Lymph # (Auto) (7943-2821) /uL [place] # (Auto) (0-900) /uL Eos # (Auto) (0-450) /uL Baso # (Auto) (0-100) /uL Sodium (137-145) mmol/L Potassium (3.4-5.1) mmol/L Chloride (98-107) mmol/L Carbon Dioxide (22-32) mmol/L BUN (7-17) mg/dL Creatinine (0.52-1.04) mg/dL Estimated GFR (>60) mL/min BUN/Creatinine Ratio (6-22) Glucose (70-100) mg/dL Calcium (8.4-10.2) mg/dL Urine RBC None seen (0-5/HPF) Urine WBC 1-5/hpf (0-5/HPF) Ur Squamous Epith Cells 1-5 /hpf (0-5/HPF) Amorphous Sediment 1+ Urine Bacteria Moderate (10-30) H (None) Urine Mucus 2+ H (Negative) Ur Culture Indicated? Specimen cultured Influenza A (RT-PCR) (NEGATIVE) Influenza B (RT-PCR) (NEGATIVE) Urine Dip Bedside Urine Glucose Negative Bedside Urine Bilirubin + 1 Bedside Urine Ketone ++ 40 Urine Specific [place] 1.020 Bedside Urine Occult Blood - Negative Bedside Urine pH 6.0 Bedside Urine Protein + 30 Bedside Urine Urobilinogen +/- 1mg Bedside Urine Nitrite - Negative Bedside Urine Leukocytes - Negative Esterase MDM Narrative Medical decision making narrative: This is a 24-year-old female who is currently 34 week EGA presents to ED with chief complain of 1-2 day duration of fever, headache, ear pressure, cough, myalgia and arthralgia, nausea and vomiting once each. Patient states she has exposed to her significant other to who has similar symptoms but not as severe as she is. Patient denies vaginal bleeding but reports suprapubic abdominal cramping with movements. Patient's flu swab was positive for flu B. initial vital signs with tachycardia and fever of 101. patient was hydrated with IV normal saline with 2 L and Tyelenol 975mg. Patient elects to receive Tamiflu for her symptoms. Normal heart tone and activity verify by nonstress monitoring by L&D nurse. UA shows moderate urine bacteria per microscopic test. Urine culture is being pending. Flonase nasal steroids provided for nasal congestion and ear pressure. Patient was able to tolerate fluids and crackers without vomiting while in ED. patient reports moderately improved her symptoms prior discharged to home and vital signs improved with normal heart rate and temperature with with blood pressure. Return precautions were discussed with the patient and Rx has been transmitted to pharmacy for full course of Tamiflu and Macrobid. Patient advised continue with supportive care with hydration, rest, and take honey for cough. Patient advised to follow with PCP/prepleater in 2-3 days for recheck. Patient verbalized understanding and agrees with treatment plan. <Brit Bailey DO - Last Filed: 09/18/19 17:53> Lab Data Labs: Lab Results 09/18/19 09/18/19 09/18/19 Range/Units 10:29 11:44 11:44 WBC 8.7 (4.5-11.0) X10^3/uL RBC 4.53 (4.0-5.2) X10^6/uL Hgb 13.4 (12.0-16.0) g/dL Hct 39.2 (36-46) % MCV 86.4 (80-100) fL MCH 29.5 (26-34) PG MCHC 34.1 (30-36) % RDW 12.7 (11.6-14.8) % Plt Count 208 (150-400) X10^3/uL Neut % (Auto) 78.4 H (50-75) % Lymph % (Auto) 9.4 L (25-40) % [place] % (Auto) 11.9 (3-14) % Eos % (Auto) 0.1 L (2-4) % Baso % (Auto) 0.2 (0-2) % Neut # (Auto) 6900 (6687-7265) /uL Lymph # (Auto) 800 L (4386-4195) /uL [place] # (Auto) 1000 H (0-900) /uL Eos # (Auto) 0 (0-450) /uL Baso # (Auto) 0 (0-100) /uL Sodium 134 L (137-145) mmol/L Potassium 3.5 (3.4-5.1) mmol/L Chloride 103 (98-107) mmol/L Carbon Dioxide 22 (22-32) mmol/L BUN 4 L (7-17) mg/dL Creatinine 0.40 L (0.52-1.04) mg/dL Estimated GFR > 60.0 (>60) mL/min BUN/Creatinine Ratio 10.0 (6-22) Glucose 105 H (70-100) mg/dL Calcium 9.0 (8.4-10.2) mg/dL Urine RBC (0-5/HPF) Urine WBC (0-5/HPF) Ur Squamous Epith Cells (0-5/HPF) Amorphous Sediment Urine Bacteria (None) Urine Mucus (Negative) Ur Culture Indicated? Influenza A (RT-PCR) Flu a negative (NEGATIVE) Influenza B (RT-PCR) Flu b positive H (NEGATIVE) 09/18/19 Range/Units 13:37 WBC (4.5-11.0) X10^3/uL RBC (4.0-5.2) X10^6/uL Hgb (12.0-16.0) g/dL Hct (36-46) % MCV (80-100) fL MCH (26-34) PG MCHC (30-36) % RDW (11.6-14.8) % Plt Count (150-400) X10^3/uL Neut % (Auto) (50-75) % Lymph % (Auto) (25-40) % [place] % (Auto) (3-14) % Eos % (Auto) (2-4) % Baso % (Auto) (0-2) % Neut # (Auto) (8888-9325) /uL Lymph # (Auto) (7698-7112) /uL [place] # (Auto) (0-900) /uL Eos # (Auto) (0-450) /uL Baso # (Auto) (0-100) /uL Sodium (137-145) mmol/L Potassium (3.4-5.1) mmol/L Chloride (98-107) mmol/L Carbon Dioxide (22-32) mmol/L BUN (7-17) mg/dL Creatinine (0.52-1.04) mg/dL Estimated GFR (>60) mL/min BUN/Creatinine Ratio (6-22) Glucose (70-100) mg/dL Calcium (8.4-10.2) mg/dL Urine RBC None seen (0-5/HPF) Urine WBC 1-5/hpf (0-5/HPF) Ur Squamous Epith Cells 1-5 /hpf (0-5/HPF) Amorphous Sediment 1+ Urine Bacteria Moderate (10-30) H (None) Urine Mucus 2+ H (Negative) Ur Culture Indicated? Specimen cultured Influenza A (RT-PCR) (NEGATIVE) Influenza B (RT-PCR) (NEGATIVE) Urine Dip Bedside Urine Glucose Negative Bedside Urine Bilirubin + 1 Bedside Urine Ketone ++ 40 Urine Specific [place] 1.020 Bedside Urine Occult Blood - Negative Bedside Urine pH 6.0 Bedside Urine Protein + 30 Bedside Urine Urobilinogen +/- 1mg Bedside Urine Nitrite - Negative Bedside Urine Leukocytes - Negative Esterase Discharge Plan Departure Patient Disposition: Home Clinical Impression: Influenza Discharge Date/Time: 09/18/19 14:56 Instructions: DI for Influenza -- Adult Activity Restrictions/Additional Instructions: You have been diagnosed with [influenza B-positive according to today's test. Urine test shows appears to be having UTI and are treated with Macrobid 1st dose in ER. Urine is pending for culture. Your blood tests were unremarkable. You were treated with Tylenol, IV hydration, Flonase and Tamiflu initial dose w hile in ED.]. What to do: *Take your medications as directed. Please continue to take Tamiflu for 5 day course twice a day. Macrobid twice a day for next 5 days for UTI. This prescription has been transmitted to [facility] in [place]. You can use up to 4000 mg Tylenol in 24 hour for discomfort and fever. Flonase 1 spray in each nostril up to twice a day with acute congestion in ear pressure. Please continue with supportive care with hydration and rest. *Follow up with your primary care provider in 2-3 days, call for an appointment. Let them know you were seen in the ED and that we asked you to be seen in follow up. *Return to ED if you have any new, worsening, or concerning symptoms, such as [chest pain, breathing difficulty, unable to tolerate fluids, abdominal discomfort, vaginal bleeding or any acute concern and symptoms lasting longer than expected]. Prescriptions: New oseltamivir [Tamiflu] 75 mg capsule 75 mg PO BID 5 Days Qty: 10 RF: 0 ondansetron 4 mg tablet,disintegrating 4 mg PO Q6-8H PRN (Reason: nausea and vomiting) Qty: 7 RF: 0 nitrofurantoin macrocrystal 100 mg capsule 100 mg PO BID 5 Days Qty: 10 RF: 0 No Action Vitamin 27 mg iron- 0.8 mg tablet 1 tab PO QPM Qty: 90 RF: 3 ondansetron 4 mg tablet,disintegrating 4 mg PO Q6-8H PRN (Reason: nausea and vomiting) Qty: 30 RF: 5 amoxicillin 500 mg capsule 500 mg PO BID Qty: 20 RF: 0 lidocaine HCl [Lidocaine Viscous] 2 % solution 1 applictn mucous membrane TID PRN (Reason: pain) Qty: 15 RF: 0 metronidazole 250 mg tablet 250 mg PO TID Qty: 21 RF: 0 acetaminophen 325 mg Tablet 325 mg PO PRN PRN (Reason: pain) RF: 0 Tums 1 tab PO PRN PRN (Reason: Indigestion) RF: 0 Referrals: Mary Rodriguez DO [Primary Care Provider] -
[2019-09-18] MEDS: ACETAMINOPHEN 325 MG TABLET 975 MG PO (11:31)
[2019-09-18] MEDS: OSELTAMIVIR 75 MG CAPSULE PO (11:32)
[2019-09-18] MEDS: SODIUM CHLORIDE 0.9% 1,000 ML 1000 ML IV ×2 (11:41→12:51)
[2019-09-18 12:12] LABS: Add Manual Diff / Slide Review NO; Basophils Absolute Auto 0 /uL (0-100); Basophils Percent Auto 0.2 % (0-2); Eosinophils Absolute Auto 0 /uL (0-450); Eosinophils Percent Auto 0.1 % (2-4); Hematocrit 39.2 % (36-46); Hemoglobin 13.4 g/dL (12.0-16.0); Lymphocytes Absolute Auto 800 /uL (1100-4500); Lymphocytes Percent Auto 9.4 % (25-40); Mean Corpuscular HGB Conc 34.1 % (30-36); Mean Corpuscular Hemoglobin 29.5 PG (26-34); Mean Corpuscular Volume 86.4 fL (80-100); Monocytes Absolute Auto 1000 /uL (0-900); Monocytes Percent Auto 11.9 % (3-14); Neutrophils Absolute Auto 6900 /uL (1500-7000); Neutrophils Percent Auto 78.4 % (50-75); Platelet Count 208 X10^3/uL (150-400); Red Blood Cell Count 4.53 X10^6/uL (4.0-5.2); Red Cell Distribution Width 12.7 % (11.6-14.8); White Blood Cell Count 8.7 X10^3/uL (4.5-11.0)
--- NOTE | 2019-09-18 12:21 | PC.NURSE ---
L&D RN setting up NST at bedside per MD Benjamin nixon
[2019-09-18 12:30] LABS: Blood Urea Nitrogen 4 mg/dL (7-17); Carbon Dioxide 22 mmol/L (22-32); Chloride 103 mmol/L (98-107); Estimated Glomerular Filt Rate > 60.0 mL/min (>60); Glucose 105 mg/dL (70-100); HEMOLYSIS < 15 (0-50); Potassium 3.5 mmol/L (3.4-5.1); Sodium 134 mmol/L (137-145)
--- NOTE | 2019-09-18 12:31 | PC.NURSE ---
ob came down to place mom on non stress test. fht on baby between 148-152. currently being monitored.
--- NOTE | 2019-09-18 12:45 | PC.NURSE ---
L&D RN in ED to perform NST on pt per Dr. Alexander's orders r/t 2 vessel cord and influenza. Pt reports some mild intermittent cramping. NST reactive, no contractions noted with tocotransducer. Pt denies vaginal bleeding or leaking fluid. Report given to Dr. Jaime.
[2019-09-18] MEDS: FLUTICASONE 120 SPRAY/16 GM SPRAY.SUSP NASAL (13:13)
--- NOTE | 2019-09-18 13:29 | PM.PN.1 ---
Subjective Subjective Interval history: Patient seen in ED and diagnosed with influenza B, no OB complaints as previously discussed with patient over the phone. NST performed at bedside in ED. No contractions, cat 1 reactive NST with baseline 145, no decels. Further management per ED. Exam Vital Signs (past 8 hours): - 09/18/19 10:17 09/18/19 11:50 09/18/19 11:59 Temperature 101.0 F H Pulse Rate 125 H 104 H Respiratory Rate 20 22 Blood Pressure 136/81 Blood Pressure [Right Arm] 122/69 125/76 Pulse Oximetry 97 96 09/18/19 12:37 09/18/19 12:52 Temperature 98.5 F 98.5 F Pulse Rate Respiratory Rate Blood Pressure Blood Pressure [Right Arm] Pulse Oximetry Oxygen Delivery Method Room Air Objective Labs Result Diagrams: 09/18/19 11:44 09/18/19 11:44 Labs: Laboratory Results - last 24 hr 09/18/19 09/18/19 09/18/19 10:29 11:44 11:44 WBC 8.7 RBC 4.53 Hgb 13.4 Hct 39.2 MCV 86.4 MCH 29.5 MCHC 34.1 RDW 12.7 Plt Count 208 Neut % (Auto) 78.4 H Lymph % (Auto) 9.4 L [place] % (Auto) 11.9 Eos % (Auto) 0.1 L Baso % (Auto) 0.2 Neut # (Auto) 6900 Lymph # (Auto) 800 L [place] # (Auto) 1000 H Eos # (Auto) 0 Baso # (Auto) 0 Sodium 134 L Potassium 3.5 Chloride 103 Carbon Dioxide 22 BUN 4 L Creatinine 0.40 L Estimated GFR > 60.0 BUN/Creatinine Ratio 10.0 Glucose 105 H Calcium 9.0 Influenza A (RT-PCR) Flu a negative Influenza B (RT-PCR) Flu b positive H
[2019-09-18 14:12] LABS: RBC Urine None Seen (0-5/HPF)
[2019-09-18 14:18] LABS: Amorphous Sediment Urine 1+; Bacteria Urine Moderate (10-30); Squamous Epithelial Cell Urine 1-5 /HPF (0-5/HPF); WBC Urine 1-5/HPF (0-5/HPF)
[2019-09-18 14:19] LABS: Culture Indicated Urine Specimen Cultured; Mucus Urine 2+ (Negative)
[2019-09-18] MEDS: NITROFURANTOIN ER 100 MG CAPSULE PO (14:39)
== END 2019-09-18 14:56 | disposition home or self-care (01) ==
PROVIDERS: Emergency Medicine; Emergency Provider Nurse Practitioner Family; PCP Family Medicine
DX: J10.1 Influenza due to other identified influenza virus with other respiratory manifestations (principal); R11.2 Nausea with vomiting, unspecified; N39.0 Urinary tract infection, site not specified; Z33.1 Pregnant state, incidental; Z87.891 Personal history of nicotine dependence
CPT/HCPCS: 36415; 80048; 81003; 81015; 85025; 87086; 87502; 96360; 96361; 99284

== ENCOUNTER 2019-09-23 11:59 | Outpatient (CLI) | payer OTHER, MEDICAID, SELFPAY ==
--- NOTE | 2019-09-23 12:39 | PM.OBTRLD ---
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 Continue NST twice weekly. Plan for induction at 39 weeks. OB Disposition: home
== END 2019-09-23 12:25 | disposition home or self-care (01) ==
LOC: LABOR 12:21 → OB 09-26 14:38
PROVIDERS: PCP Family Medicine; Visit Provider Family Medicine
DX: O35.8XX0 Maternal care for other (suspected) fetal abnormality and damage, not applicable or unspecified (principal); Z3A.34 34 weeks gestation of pregnancy
CPT/HCPCS: 59025; G0378; G0379

== ENCOUNTER 2019-09-26 11:38 | Outpatient (CLI) | payer OTHER, MEDICAID, SELFPAY ==
--- NOTE | 2019-09-26 12:17 | PM.OBTRLD ---
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 Continue NST twice weekly. OB Disposition: home
== END 2019-09-26 12:20 | disposition home or self-care (01) ==
LOC: OB 14:42
PROVIDERS: PCP Family Medicine; Visit Provider Family Medicine
DX: O35.8XX0 Maternal care for other (suspected) fetal abnormality and damage, not applicable or unspecified (principal); Z3A.34 34 weeks gestation of pregnancy
CPT/HCPCS: 59025; G0378; G0379

== ENCOUNTER 2019-09-30 11:16 | Outpatient (CLI) | payer OTHER, MEDICAID, SELFPAY ==
--- NOTE | 2019-09-30 11:59 | PM.OBTRLD ---
Visit Information Visit Information Date of evaluation: 09/30/19 Primary OB Provider: Mary Rodriguez Reason for Evaluation: Yes non-stress test non-stress test reason: other (Small pericardial effusion, 2 vessel cord) Vital Signs Vital Signs: Temperature 35.7? blood pressure 121/81 heart rate 96 PFSH Social History Smoking Status: Former smoker alcohol intake: former substance use type: marijuana Evaluation Evaluation Baseline heart rate: 150 Variability: Average (6-10) monitor accelerations: Present monitor decelerations: Absent Category of Tracing: I Diagnosis, Plan/Disposition Final Diagnosis (1) pericardial effusion: Current Visit: No Status: Acute (2) Two vessel umbilical cord in pabon , antepartum: Current Visit: No Status: Chronic (3) 35 weeks gestation of : Current Visit: Yes Status: Acute Plan/Disposition Plan: Reactive NST done for 2 vessel cord and small pericardial effusion. Continue NST twice weekly. OB Disposition: home
== END 2019-09-30 12:05 | disposition home or self-care (01) ==
LOC: LABOR 13:06 → OB 10-03 15:16
PROVIDERS: PCP Family Medicine; Visit Provider Family Medicine
DX: O35.8XX0 Maternal care for other (suspected) fetal abnormality and damage, not applicable or unspecified (principal); Z3A.35 35 weeks gestation of pregnancy
CPT/HCPCS: 59025; G0378; G0379

== ENCOUNTER 2019-10-03 11:37 | Outpatient (CLI) | payer OTHER, MEDICAID, SELFPAY ==
--- NOTE | 2019-10-03 12:16 | PM.OBTRLD ---
Visit Information Visit Information Date of evaluation: 10/03/19 Primary OB Provider: Mary Rodriguez Reason for Evaluation: Yes non-stress test non-stress test reason: other (2 vessel cord, small pericardial effusion) Vital Signs Vital Signs: Temperature 35.8? blood pressure 133/74 heart rate 90 PFSH Medical History Anxiety (Chronic) Bipolar disorder (Chronic) Depression (Chronic) Surgical History H/O dilation and curettage (Resolved) History of tonsillectomy (Resolved) Family History Mother Ovarian cancer Social History Smoking Status: Former smoker alcohol intake: former substance use type: marijuana Evaluation Evaluation Baseline heart rate: 140 Variability: Moderate (11-25) monitor accelerations: Present monitor decelerations: Absent Category of Tracing: I Diagnosis, Plan/Disposition Final Diagnosis (1) 35 weeks gestation of : Current Visit: No Status: Acute (2) pericardial effusion: Current Visit: No Status: Acute (3) 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 Continue twice weekly NSTs. OB Disposition: home
== END 2019-10-03 12:20 | disposition home or self-care (01) ==
LOC: OB 15:20
PROVIDERS: PCP Family Medicine; Visit Provider Family Medicine
DX: O43.893 Other placental disorders, third trimester (principal); Z3A.35 35 weeks gestation of pregnancy
CPT/HCPCS: 59025; G0378; G0379

== ENCOUNTER → 2019-10-07 11:34 | Outpatient (CLI) | payer OTHER, MEDICAID, SELFPAY ==
[2019-10-08 12:04] LABS: Strep Grp B PCR POS for Grp B Strep
== END ==
PROVIDERS: PCP Family Medicine; Visit Provider Family Medicine
DX: Z3A.36 36 weeks gestation of pregnancy (principal)
CPT/HCPCS: 87653

== ENCOUNTER 2019-10-07 11:47 | Outpatient (CLI) | payer OTHER, MEDICAID, SELFPAY ==
--- NOTE | 2019-10-07 12:26 | PM.OBTRLD ---
Visit Information Visit Information Date of evaluation: 10/07/19 Primary OB Provider: Mary Rodriguez Reason for Evaluation: Yes non-stress test non-stress test reason: other (2 vessel cord, small pericardial effusion, decreasing in size) Vital Signs Vital Signs: Blood pressure 118/68 PFSH Social History Smoking Status: Former smoker alcohol intake: former substance use type: marijuana Evaluation Evaluation Baseline heart rate: 130 Variability: Moderate (11-25) monitor accelerations: Present monitor decelerations: Absent Category of Tracing: I Diagnosis, Plan/Disposition Final Diagnosis (1) pericardial effusion: Current Visit: No Status: Acute (2) 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 Decreasing pericardial effusion. Continue twice weekly NST and induction at 39 weeks. OB Disposition: home
== END 2019-10-07 12:45 | disposition home or self-care (01) ==
LOC: OB 10-10 14:26
PROVIDERS: PCP Family Medicine; Visit Provider Family Medicine
DX: O43.893 Other placental disorders, third trimester (principal); Z3A.36 36 weeks gestation of pregnancy; O36.8930 Maternal care for other specified fetal problems, third trimester, not applicable or unspecified
CPT/HCPCS: 59025; 87653; G0378; G0379

== ENCOUNTER 2019-10-10 11:52 | Outpatient (CLI) | payer OTHER, MEDICAID, SELFPAY ==
--- NOTE | 2019-10-10 12:38 | PM.OBTRLD ---
Visit Information Visit Information Date of evaluation: 10/10/19 Primary OB Provider: Mary Rodriguez Reason for Evaluation: Yes non-stress test non-stress test reason: other (2 vessel cord, small pericardial effusion) Vital Signs Vital Signs: Temp 36.0 BP 137/79 HR 102 PFSH Social History Smoking Status: Former smoker alcohol intake: former substance use type: marijuana Evaluation Evaluation Baseline heart rate: 140 Variability: Moderate (11-25) monitor accelerations: Present monitor decelerations: Absent Category of Tracing: I Diagnosis, Plan/Disposition Final Diagnosis (1) 36 weeks gestation of : Current Visit: No Status: Acute (2) pericardial effusion: Current Visit: No Status: Acute (3) 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 Continue twice weekly NST and induction at 39 weeks. OB Disposition: home
== END 2019-10-10 12:45 | disposition home or self-care (01) ==
LOC: LABOR 12:29 → OB 10-31 09:40
PROVIDERS: PCP Family Medicine; Visit Provider Family Medicine
DX: O35.8XX0 Maternal care for other (suspected) fetal abnormality and damage, not applicable or unspecified (principal); Z3A.36 36 weeks gestation of pregnancy
CPT/HCPCS: 59025; G0378; G0379

== ENCOUNTER 2019-10-14 11:36 | Outpatient (CLI) | payer OTHER, MEDICAID, SELFPAY ==
--- NOTE | 2019-10-14 13:15 | PM.OBTRLD ---
Visit Information Visit Information Date of evaluation: 10/14/19 Primary OB Provider: Mary Rodriguez Reason for Evaluation: Yes non-stress test non-stress test reason: other (Decreasing pericardial effusion, 2 vessel cord) Vital Signs Vital Signs: T 36.3 BP 120/75 HR 102 PFSH Social History Smoking Status: Former smoker alcohol intake: former substance use type: marijuana Evaluation Evaluation Baseline heart rate: 140 Variability: Moderate (11-25) monitor accelerations: Present monitor decelerations: Absent Category of Tracing: I Diagnosis, Plan/Disposition Final Diagnosis (1) 37 weeks gestation of : Current Visit: No Status: Acute (2) pericardial effusion: Current Visit: No Status: Acute (3) 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 Continue twice weekly NST and induction at 39 weeks. OB Disposition: home
== END 2019-10-14 12:15 | disposition home or self-care (01) ==
LOC: LABOR 12:27 → OB 10-17 10:51
PROVIDERS: PCP Family Medicine; Visit Provider Family Medicine
DX: O35.8XX0 Maternal care for other (suspected) fetal abnormality and damage, not applicable or unspecified (principal); Z3A.37 37 weeks gestation of pregnancy
CPT/HCPCS: 59025; G0378; G0379

== ENCOUNTER 2019-10-17 12:00 | Outpatient (CLI) | payer OTHER, MEDICAID, SELFPAY ==
--- NOTE | 2019-10-17 13:08 | PM.OBTRLD ---
Visit Information Visit Information Date of evaluation: 10/17/19 Primary OB Provider: Mary Rodriguez Reason for Evaluation: Yes non-stress test non-stress test reason: other (2 vessel cord, small pericardial effusion) Vital Signs Vital Signs: BP 135/78 HR 95 PFSH Social History Smoking Status: Former smoker alcohol intake: former substance use type: marijuana Evaluation Evaluation Baseline heart rate: 145 Variability: Moderate (11-25) monitor accelerations: Present monitor decelerations: Absent Category of Tracing: I Diagnosis, Plan/Disposition Final Diagnosis (1) 37 weeks gestation of : Current Visit: No Status: Acute (2) pericardial effusion: Current Visit: No Status: Acute (3) 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 Induction next week. OB Disposition: home
== END 2019-10-17 12:40 | disposition home or self-care (01) ==
LOC: LABOR 12:45 → OB 10-18 11:22
PROVIDERS: PCP Family Medicine; Referring Provider Family Medicine; Visit Provider Family Medicine
DX: O35.8XX0 Maternal care for other (suspected) fetal abnormality and damage, not applicable or unspecified (principal); Z3A.37 37 weeks gestation of pregnancy
CPT/HCPCS: 59025; G0378; G0379

== ENCOUNTER 2019-10-21 11:54 | Outpatient (CLI) | payer OTHER, MEDICAID, SELFPAY ==
--- NOTE | 2019-10-21 12:55 | PM.OBTRLD ---
Visit Information Visit Information Date of evaluation: 10/21/19 Primary OB Provider: Mary Rodriguez Reason for Evaluation: Yes non-stress test non-stress test reason: other (2 vessel cord, trace pericardial effusion) Vital Signs Vital Signs: T 36.3 BP 124/71 96 PFSH Social History Smoking Status: Former smoker alcohol intake: former substance use type: marijuana Evaluation Evaluation Baseline heart rate: 140 Variability: Moderate (11-25) monitor accelerations: Present monitor decelerations: Absent Category of Tracing: I Diagnosis, Plan/Disposition Final Diagnosis (1) pericardial effusion: Current Visit: No Status: Acute (2) 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 Scheduled for induction at 39 weeks. OB Disposition: home
== END 2019-10-21 12:55 | disposition home or self-care (01) ==
LOC: LABOR 12:30 → OB 10-24 13:19
PROVIDERS: PCP Family Medicine; Referring Provider Family Medicine; Visit Provider Family Medicine
DX: O35.8XX0 Maternal care for other (suspected) fetal abnormality and damage, not applicable or unspecified (principal); Z3A.38 38 weeks gestation of pregnancy
CPT/HCPCS: 59025; G0378; G0379

== ENCOUNTER 2019-10-24 18:46 | Observation (INO) | payer OTHER, MEDICAID, SELFPAY ==
[2019-10-24 19:58] LABS: Add Manual Diff / Slide Review NO; Basophils Absolute Auto 100 /uL (0-100); Basophils Percent Auto 0.6 % (0-2); Eosinophils Absolute Auto 0 /uL (0-450); Eosinophils Percent Auto 0.2 % (2-4); Hematocrit 37.5 % (36-46); Hemoglobin 12.4 g/dL (12.0-16.0); Lymphocytes Absolute Auto 2200 /uL (1100-4500); Lymphocytes Percent Auto 19.2 % (25-40); Mean Corpuscular Volume 87.7 fL (80-100); Monocytes Absolute Auto 800 /uL (0-900); Monocytes Percent Auto 7.1 % (3-14); Neutrophils Absolute Auto 8400 /uL (1500-7000); Neutrophils Percent Auto 72.9 % (50-75); Platelet Count 226 X10^3/uL (150-400); Red Blood Cell Count 4.28 X10^6/uL (4.0-5.2); Red Cell Distribution Width 13.5 % (11.6-14.8); White Blood Cell Count 11.5 X10^3/uL (4.5-11.0)
[2019-10-24] MEDS: DINOPROSTONE VAG (CERVIDIL) 10 MG VAG (20:04)
[2019-10-24 20:19] VITALS: BP 137/72
[2019-10-25] MEDS: LACTATED RINGERS 1,000 ML 100 ML IV (06:45)
[2019-10-25] MEDS: OXYTOCIN PREMIX 30 UNIT/500 ML PLAST..BAG IV (06:45)
--- NOTE | 2019-10-25 07:31 | PM.OBHP.1 ---
OB HPI Date/Time Date of admission: 10/25/19 Date Patient Seen: 10/25/19 Time Patient Seen: 07:15 History of Present Condition Chief complaint: eval of labor : 2 Para: 0 Estimated Date of Delivery: 11/01/19 Estimated Gestational Age (weeks): 39 Narrative: Chloé Ortiz is a 24 year old at 39 weeks here for induction for 2 vessel cord an incidental trace pericardial effusion. She was followed by maternal medicine throughout her who recommended induction at 39-40 and 6 days gestation. The pericardial effusion was closely monitored and decreasing. Since it was an isolated finding, no further workup or recommendations given. complicated by obesity and frequent marijuana use. No other drug use. Indications Indication for induction OB: other (Single umbilical artery) History of Present care: good care, initiated at week # (8), number of visits (12) and pounds weight gain (17) Dating criteria: LMP confirmed by 1st trimester US Ultrasounds: abnormal US findings (trace pericardial effusion followed by MFM, decreased in size) Preadmission Labs Blood type: O (+) positive -: Antibody screen: negative, GBS status: positive, HBsAG: negative, HIV: negative and RPR/VDLR: negative -: Chlamydia screen: not detected and Gonorrhea screen: not detected -: Rubella: not immune and Varicella: immune HCT: 38.6 HCAB: negative PAP: Normal Quad screen: Normal Cell-free DNA: Normal XY Urine: Negative 1 hr GTT: 134 Prior (ies) History: 2016 SAB at 9 weeks Evaluation Evaluation Baseline heart rate: 130 Variability: Moderate (11-25) monitor accelerations: Present monitor decelerations: Absent Contraction Frequency (minutes): 5 Uterine Contraction Intensity: Mild Category of Tracing: I Cervical dilation (cm): 1 Cervical effacement (%): 50 station: -2 Laboratory results: Laboratory Tests 10/24/19 10/24/19 19:35 19:35 WBC 11.5 H RBC 4.28 Hgb 12.4 Hct 37.5 MCV 87.7 MCH 29.0 MCHC 33.0 RDW 13.5 Plt Count 226 Neut % (Auto) 72.9 Lymph % (Auto) 19.2 L [place] % (Auto) 7.1 Eos % (Auto) 0.2 L Baso % (Auto) 0.6 Neut # (Auto) 8400 H Lymph # (Auto) 2200 [place] # (Auto) 800 Eos # (Auto) 0 Baso # (Auto) 100 Blood Type O Positive Antibody Screen Negative [facility] Social History Smoking Status: Former smoker alcohol intake: former substance use type: marijuana Meds Home Medications and Allergies Home Medications Medication Instructions Recorded Confirmed Type Tums 1 tab PO PRN PRN 05/25/19 10/24/19 History vit [id number] 1 tab PO DAILY 10/24/19 10/24/19 History [Classic ] Allergies Allergy/AdvReac Type Severity Reaction Status Date / Time Latex, Natural Rubber Allergy Swelling Verified 10/21/19 11:02 adhesives Allergy Mild Hives and Uncoded 10/21/19 11:02 Blisters Exam Vital Signs (past 8 hours): Temperature 97.8? blood pressure 138/70 heart rate 88 respirations 18 Const General: healthy appearing and comfortable Nutritional Appearance: obese HENMT Head: normal to inspection Ears: hearing grossly normal bilaterally Nose: external nose normal Face and sinus: normal facial exam Mouth: oral mucosae normal Eyes General: appearance normal, both eyes and all related structures Neck Neck: normal visual inspection Resp Effort & Inspection: normal respiratory effort Auscultation: clear to auscultation bilaterally Cardio Rate: regular rate Rhythm: regular rhythm Heart Sounds: no murmurs GI Other: Gravid External Female Exam: external appearance normal Manual OB Exam: dilated 1, effaced 50% and station -1 Presentation: vertex Estimated Weight (lbs): 7 Back/Spine/Pelvis Back: normal to inspection Skin General: no rashes or lesions noted Extrem General: normal to inspection and no pedal edema Objective Labs Result Diagrams: 10/24/19 19:35 Labs: Laboratory Results - last 24 hr 10/24/19 10/24/19 19:35 19:35 WBC 11.5 H RBC 4.28 Hgb 12.4 Hct 37.5 MCV 87.7 MCH 29.0 MCHC 33.0 RDW 13.5 Plt Count 226 Neut % (Auto) 72.9 Lymph % (Auto) 19.2 L [place] % (Auto) 7.1 Eos % (Auto) 0.2 L Baso % (Auto) 0.6 Neut # (Auto) 8400 H Lymph # (Auto) 2200 [place] # (Auto) 800 Eos # (Auto) 0 Baso # (Auto) 100 Blood Type O Positive Antibody Screen Negative Assessment and Plan Assessment and Plan Assessment and Plan narrative: 24-year-old 39 weeks gestation here for induction for 2 vessel cord and isolated trace pericardial effusion on ultrasound felt to be an incidental finding. Patient was followed by maternal medicine throughout her and recommended induction between 39 and 40 and 6 weeks gestation. She received Cervidil overnight but this was removed had 5:00 a.m. due to uterine hyperstimulation. SVE this morning is 1/50/-1 with a Medina score of 6. Patient is quite sensitive on exam after Cervidil. Will give oral Cytotec this morning for further cervical ripening and reassess after several hours whether to start Pitocin. She is GBS positive. Will start prophylactic antibiotics once in active labor. Patient desires epidural once in active labor.
[2019-10-25] MEDS: miSOPROStoL 25 MCG TABLET PO ×2 (07:44→09:50)
--- NOTE | 2019-10-27 06:57 | PM.OBDS.1 ---
Discharge Providers Provider Date of admission: 10/24/19 18:46 Discharge Date: 10/25/19 Primary care physician: Mary Rodriguez DO Discharge provider: Mayr Rodriguez DO Summary Hospital Course Date Patient Seen: 10/25/19 Time Patient Seen: 12:45 Hospital Course: Patient came in for cervical ripening and induction at 39 weeks due to a 2 vessel cord and small pericardial effusion. Patient was followed by maternal medicine throughout her who recommended induction at 39-40 and 6/7 weeks gestation. Patient received Cervidil overnight however cervix was still unfavorable for Pitocin. She then received 3 doses of oral Cytotec with minimal cervical change and no change in her Medina score (remained at 6). Patient is aware that and inductions can take quite a long time, especially when the cervix is unfavorable and it is a first . Given lack of significant cervical change with 2 methods of cervical ripening, patient will discharge home and return for repeat induction next week. heart tones were category 1 throughout her stay in the center. She will be seen in the clinic for a regular OB visit on 11/01/19. Return for repeat cervical ripening the night of 11/02/19 unless cervical exam is far more favorable, then she will come in for Pitocin induction on 11/03/19. Patient expressed her understanding. She was relieved to go home she was quite tired and wanting to sleep. 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 , antepartum: Status: Chronic (2) pericardial effusion: Status: Acute (3) 39 weeks gestation of : Status: Acute Time Spent with Patient Time attestation: Total time spent providing and/or coordinating discharge services: Objective Labs Result Diagrams: 10/24/19 19:35 Exam Narrative Exam Narrative: General: Comfortable, resting in bed Genitourinary: SVE 50/-2 Extremities: No lower extremity edema Discharge Plan Discharge Plan Patient Disposition: Home Discharge orders & Medications Prescriptions: Continued Tums 1 tab PO PRN PRN (Reason: Indigestion) RF: 0 Classic 28 mg iron- 800 mcg Tablet 1 tab PO DAILY RF: 0 Follow up/Referrals: Mary Rodriguez DO [Primary Care Provider] - Discharge Data Primary Care Provider: Mary Rodriguez Attending Provider: Mary Rodriguez Admit Date/Time: 10/24/19 18:46 Discharges patient from system. Discharge Date/Time: 10/25/19 14:13
== END 2019-10-25 14:13 | disposition home or self-care (01) ==
PROVIDERS: Admitting Provider Family Medicine; PCP Family Medicine; Referring Provider Family Medicine; Visit Provider Family Medicine
DX: O35.8XX0 Maternal care for other (suspected) fetal abnormality and damage, not applicable or unspecified (principal); Z3A.39 39 weeks gestation of pregnancy
CPT/HCPCS: 85025; 86850; 86900; 86901; G0378; G0379; J2590

== ENCOUNTER 2019-11-01 12:16 | Outpatient (CLI) | payer OTHER, MEDICAID, SELFPAY ==
--- NOTE | 2019-11-01 12:58 | PM.OBTRLD ---
Visit Information Visit Information Date of evaluation: 11/01/19 Primary OB Provider: Mary Rodriguez Reason for Evaluation: Yes non-stress test non-stress test reason: other (Two vessel cord, trace pericardial effusion) Vital Signs Vital Signs: Temperature 36.3? 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 Follow-up for induction tomorrow night. OB Disposition: home
== END 2019-11-01 13:45 | disposition home or self-care (01) ==
LOC: OB 11-02 10:32
PROVIDERS: PCP Family Medicine; Referring Provider Family Medicine; Visit Provider Family Medicine
DX: O35.8XX0 Maternal care for other (suspected) fetal abnormality and damage, not applicable or unspecified (principal); O48.0 Post-term pregnancy; Z3A.40 40 weeks gestation of pregnancy
CPT/HCPCS: 59025; G0378; G0379

== ENCOUNTER 2019-11-02 19:33 | Inpatient (IN) | payer OTHER, MEDICAID, SELFPAY ==
[2019-11-02 21:09] LABS: Add Manual Diff / Slide Review NO; Basophils Absolute Auto 0 /uL (0-100); Basophils Percent Auto 0.2 % (0-2); Eosinophils Absolute Auto 0 /uL (0-450); Eosinophils Percent Auto 0.3 % (2-4); Hematocrit 37.8 % (36-46); Hemoglobin 12.6 g/dL (12.0-16.0); Lymphocytes Absolute Auto 1800 /uL (1100-4500); Lymphocytes Percent Auto 14.4 % (25-40); Mean Corpuscular HGB Conc 33.4 % (30-36); Mean Corpuscular Hemoglobin 28.9 PG (26-34); Mean Corpuscular Volume 86.7 fL (80-100); Monocytes Absolute Auto 900 /uL (0-900); Neutrophils Absolute Auto 9800 /uL (1500-7000); Neutrophils Percent Auto 78.1 % (50-75); Platelet Count 244 X10^3/uL (150-400); Red Blood Cell Count 4.35 X10^6/uL (4.0-5.2); Red Cell Distribution Width 14.2 % (11.6-14.8); White Blood Cell Count 12.5 X10^3/uL (4.5-11.0)
[2019-11-02] MEDS: DINOPROSTONE VAG (CERVIDIL) 10 MG VAG (21:12)
[2019-11-02 22:04] VITALS: BP 133/76
[2019-11-02] MEDS: ZOLPIDEM 5 MG TABLET PO (23:15)
--- NOTE | 2019-11-03 06:37 | PM.OBHP.1 ---
OB HPI Date/Time Date of admission: 11/02/19 Date Patient Seen: 11/03/19 Time Patient Seen: 07:00 History of Present Condition Chief complaint: observation of labor : 2 Para: 0 Estimated Date of Delivery: 11/01/19 Estimated Gestational Age (weeks): 40w2d Narrative: Chloé Ortiz is a 24 year old at 40 weeks and 2 days here for repeat induction for 2 vessel cord and anincidental trace pericardial effusion felt to be insignificant by MFM. She was followed by maternal medicine throughout her who recommended induction at 39-40 and 6 days gestation. The pericardial effusion was closely monitored and decreasing on US (2 mm last US). Aneuploidy evaluation normal. complicated by obesity and marijuana use though patient states she stopped using marijuana in June 2019. Indications Indication for induction OB: other (Single umbilical artery) History of Present care: good care, initiated at week # (8), number of visits (12) and pounds weight gain (17) Dating criteria: LMP confirmed by 1st trimester US Ultrasounds: abnormal US findings (trace pericardial effusion followed by MFM, decreased in size) Obstetrical complications: none Medical complications: none Preadmission Labs Blood type: O (+) positive -: Antibody screen: negative, GBS status: positive, HBsAG: negative, HIV: negative and RPR/VDLR: negative -: Chlamydia screen: not detected and Gonorrhea screen: not detected -: Rubella: not immune and Varicella: immune HCT: 38.6 HCAB: negative PAP: Normal Quad screen: Normal Cell-free DNA: Normal XY Urine: Negative 1 hr GTT: 134 Prior (ies) History: 2016 SAB at 9 weeks Evaluation Evaluation Baseline heart rate: 130 Variability: Moderate (11-25) monitor accelerations: Present monitor decelerations: Absent Uterine Contraction Intensity: Mild Cervical dilation (cm): 2 Cervical effacement (%): 75 station: -1 Laboratory results: Laboratory Tests 11/02/19 11/02/19 20:40 20:40 WBC 12.5 H RBC 4.35 Hgb 12.6 Hct 37.8 MCV 86.7 MCH 28.9 MCHC 33.4 RDW 14.2 Plt Count 244 Neut % (Auto) 78.1 H Lymph % (Auto) 14.4 L [place] % (Auto) 7.0 Eos % (Auto) 0.3 L Baso % (Auto) 0.2 Neut # (Auto) 9800 H Lymph # (Auto) 1800 [place] # (Auto) 900 Eos # (Auto) 0 Baso # (Auto) 0 Blood Type O Positive Antibody Screen Negative [facility] Medical History Anxiety (Chronic) Bipolar disorder (Chronic) Depression (Chronic) Surgical History H/O dilation and curettage (Resolved) History of tonsillectomy (Resolved) Family History Mother Ovarian cancer Social History Smoking Status: Former smoker alcohol intake: former substance use type: marijuana Meds Home Medications and Allergies Home Medications Medication Instructions Recorded Confirmed Type Tums 1 tab PO PRN PRN 05/25/19 11/02/19 History Classic 1 tab PO DAILY 10/24/19 11/02/19 History Allergies Allergy/AdvReac Type Severity Reaction Status Date / Time Latex, Natural Rubber Allergy Swelling Verified 10/21/19 11:02 adhesives Allergy Mild Hives and Uncoded 11/02/19 22:03 Blisters Review of Systems Constitutional Constitutional: Denies fatigue and Denies fever(s) Cardiovascular Cardiovascular: Denies leg swelling and Denies shortness of breath Respiratory Respiratory: Denies cough and Denies dyspnea Gastrointestinal Gastrointestinal: Denies abdominal pain and Denies change in bowel habits Genitourinary Genitourinary: Denies vaginal discharge, Denies vaginal odor and Denies pelvic pain Endocrine Endocrine: Denies fatigue Exam Vital Signs (past 8 hours): Temperature 36.1 Blood pressure 137/79 Heart rate 96 Const General: healthy appearing and comfortable Nutritional Appearance: obese HENMT Head: normal to inspection Ears: hearing grossly normal bilaterally Nose: external nose normal Face and sinus: normal facial exam Mouth: oral mucosae normal Eyes General: appearance normal, both eyes and all related structures Neck Neck: normal visual inspection Resp Effort & Inspection: normal respiratory effort Auscultation: clear to auscultation bilaterally Cardio Rate: regular rate Rhythm: regular rhythm Heart Sounds: no murmurs GI Other: Gravid External Female Exam: external appearance normal Manual OB Exam: dilated 2, effaced 75% and station -1 Presentation: vertex Estimated Weight (lbs): 8 Back/Spine/Pelvis Back: normal to inspection Skin General: no rashes or lesions noted Extrem General: normal to inspection and no pedal edema Objective Labs Result Diagrams: 11/02/19 20:40 Labs: Laboratory Results - last 24 hr 11/02/19 11/02/19 20:40 20:40 WBC 12.5 H RBC 4.35 Hgb 12.6 Hct 37.8 MCV 86.7 MCH 28.9 MCHC 33.4 RDW 14.2 Plt Count 244 Neut % (Auto) 78.1 H Lymph % (Auto) 14.4 L [place] % (Auto) 7.0 Eos % (Auto) 0.3 L Baso % (Auto) 0.2 Neut # (Auto) 9800 H Lymph # (Auto) 1800 [place] # (Auto) 900 Eos # (Auto) 0 Baso # (Auto) 0 Blood Type O Positive Antibody Screen Negative Assessment and Plan Assessment and Plan Assessment and Plan narrative: 24-year-old 40 weeks and 2 days gestation here for repeat induction for 2 vessel cord and isolated trace pericardial effusion on ultrasound felt to be an insignificant finding due to otherwise normal work up. Patient was followed by maternal medicine throughout her and recommended induction between 39 and 40 and 6 weeks gestation. Induction was attempted at 39 weeks but unsuccessful after Cervidil and Cytotec for cervical ripening. Patient received Cervidil again last night. SVE 2/75/-1 with Medina score of 8 today. Will start pitocin per protocol and prophylactic antibiotics once in active labor. Patient desires epidural once in active labor.
[2019-11-03] MEDS: OXYTOCIN PREMIX 30 UNIT/500 ML PLAST..BAG IV (09:46)
[2019-11-03] MEDS: LACTATED RINGERS 1,000 ML 100 ML IV ×2 (09:46→14:00)
[2019-11-03] MEDS: PENICILLIN G POTASSIUM 5,000,000 UNIT in DEXTROSE 5% IN WATER 250 ML IV (12:36)
--- NOTE | 2019-11-03 12:52 | PM.OBPNLAB ---
Date/Time Date Patient Seen: 11/03/19 Time Patient Seen: 12:30 Pain Control Comments: Patient is more uncomfortable with contractions, rates pain 8/10, wants to hold off on epidural as long as she can. Pelvic Exam Dilation (cm): 3 Effacement (%): 80 station: -1 Amniotic membrane status: Intact Contractions Pitocin rate (mU/min): 9 Contraction frequency (min): 2 Contraction intensity: Mild Status status: Category l Heart Rate Baseline: 150 Monitor Accelerations: Present Monitor Decelerations: Absent Monitor Variability: Moderate Assessment and Plan Assessment: active labor Plan: continuous present management Comments: Patient appears to be entering active labor. Start penicillin for GBS prophylaxis. Epidural when desired.
--- NOTE | 2019-11-03 16:25 | PM.OBPNLAB ---
Date/Time Date Patient Seen: 11/03/19 Time Patient Seen: 16:00 Pain Control Pain control: tolerating well and epidural Comments: Comfortable with epidural Pelvic Exam Dilation (cm): 4 Effacement (%): 90 station: -1 Amniotic membrane status: Ruptured (small amount of clear fluid) Contractions Pitocin rate (mU/min): 12 Contraction frequency (min): 3 Contraction pattern: Regular Contraction intensity: Moderate Status status: Category l Heart Rate Baseline: 130 Monitor Accelerations: Present Monitor Decelerations: Absent Monitor Variability: Moderate Assessment and Plan Assessment: induction ongoing Plan: continuous present management Comments: AROM with clear fluid. Continue GBS prophylaxis. Expectant management.
[2019-11-03] MEDS: PENICILLIN G POTASSIUM 3,000,000 UNIT/50 ML FROZ.PIGGY 100 UNIT IV ×2 (16:34→20:31)
[2019-11-03] MEDS: ONDANSETRON 4 MG/2 ML INJ IV (17:45)
--- NOTE | 2019-11-03 21:37 | PM.OBPNLAB ---
Date/Time Date Patient Seen: 11/03/19 Time Patient Seen: 21:25 Pain Control Pain control: epidural Comments: Feeling more than she would like, epidural seems to be wearing off. Pelvic Exam Dilation (cm): 8 Effacement (%): 100 station: -1 Amniotic membrane status: Ruptured (small amount of clear fluid) Contractions Monitor mode: External Pitocin rate (mU/min): 18 Contraction frequency (min): 3 Contraction pattern: Regular Contraction intensity: Strong/Firm Status status: Category ll Heart Rate Baseline: 150 Monitor Accelerations: Present Monitor Decelerations: Late Monitor Variability: Moderate Assessment and Plan Assessment: induction ongoing Plan: continuous present management Comments: Pitocin cut in half due to late decelerations. Making good cervical progress. Continue pitocin, titrate as able.
[2019-11-03] MEDS: miSOPROStoL 200 MCG TABLET 800 MCG PR (23:53)
[2019-11-04] VITALS (8 sets, daily range): BP systolic 92–139; BP diastolic 61–94; PULSE 95–146; RESP 15–21; TEMP 36.6–37; O2SAT 95–99
--- NOTE | 2019-11-04 | DI.US.S_ITS ---
PROCEDURE: US PELVIC LIMITED INDICATIONS: UTERINE INVERSION POST TECHNIQUE: Real-time transabdominal scanning was performed of the pelvic organs, with image documentation. COMPARISON: None. FINDINGS: Uterus: Dr. Betancur, [employer] specialists, requested stat sonographic assistance during reduction of uterine inversion in this patient. Morphologically the uterus appears to have been successfully reduced to a normal configuration. IMPRESSION: Sonographically successful reduction of uterine inversion, . Dictated by: Pramod Senior M.D. on 11/04/2019 at 10:35 Approved by: Pramod Senior M.D. on 11/04/2019 at 10:38
[2019-11-04] MEDS: CEFOTETAN 2 GM/50 ML PIGGYBACK IV ×2 (01:24→13:16)
--- NOTE | 2019-11-04 01:57 | PM.GYNOP.1 ---
Operative Date/Time/Diagnoses Date of procedure: 11/04/19 Time of procedure: 01:57 Pre-op diagnosis: Uterine inversion Post-op diagnosis: same Procedure & Clinicians Procedure: Reduction of uterine inversion Indications: Uterine inversion Surgeon: Rufus Betancur Product Marketing Coordinator: Mary Rodriguez Anesthesia Type: General Operative Notes Findings: Fundus of the uterus presenting at cervix Closure Type: not applicable Specimen(s): none Estimated blood loss (mL): 2,000 Blood products transfused: packed red blood cells Procedure in detail: The patient was placed supine upon the operating table and anesthetized. She is placed in the dorsal lithotomy position and draped and prepared in the usual fashion. Examination showed the fundus of the uterus to be at the cervix. It had been reduced some earlier. A posterior weighted retractor was set in place and anteriorly a [place] retractor was placed for visualization. Lateral edges of the vagina were grasped. Ultrasound was available and one could see easily on abdominal ultrasound an approximate 50% inversion of the uterus. Initial attempts were used with a ring forceps with gauze with this was unsuccessful. The reader then was able to place her hand and two fingers gently on the fundus of the uterus and pushed upwards and one could visually see the uterus be reduced on ultrasound. Post this procedure block report wound was placed and inflated to 220 cc. The fundus remained elevated without inversion. Complications: none Post-operative Condition: stable Disposition: ICU Plan for aftercare: Careful monitoring in ICU
--- NOTE | 2019-11-04 02:01 | P.PCNOB_ITS ---
Events: Labor Induction and Labor Augmentation Labor & Delivery Delivery date: 11/03/19 Cervical ripening method: per Cervidil protocol Induction method: per pitocin protocol Delivery augmentation: rupture of membranes Delivery monitor: external FHT Route of delivery: L&D Laceration Description: Labial (First degree on right which was repaired for hemostasis, superficial on left which was not repaired) Delivery repair: vicryl Estimated blood loss (mL): 2,000 Anesthesia type: Epidural Complications: Uterine inversion with hemorrhage Narrative: STAGE I: Labor Patient was admitted to the center the evening 11/02/19 for induction. She received Cervidil followed by Pitocin protocol. She received an epidural adequate pain control. Artificial rupture of occurred approximately 4:00 p.m. with clear fluid. Patient progressed stage I and was complete at 22:17. STAGE II: Delivery Spontaneous vaginal delivery occurred at 23:32. was vertex and ROMANA. was immediately placed on mother's abdomen. Cord was clamped and cut after 1 minutes delay. Apgars were 9 and 9. STAGE III: Placenta/Cord Placenta delivered after active management and appeared intact with a 2 vessel cord as expected. There were bilateral labial lacerations. The right labial laceration was repaired with 3-0 vicryl with good hemostasis. The left laceration was superficial and did not require repair. Patient had persistent trickling of blood after repair of the labial laceration. Bimanual exam was concerning for either retained placenta or uterine inversion. Placenta appeared intact on close inspection. Patient was given Pitocin followed by misoprostol however trickling persisted. Dr. Betancur was called at this point to examine patient. She then received Methergine, Hemabate and tranexamic acid. Dr. Betancur arrived and examined patient. He confirmed that patient had a uterine inversion and attempted reduction but was unsuccessful. Dr. Betancur requested the OR team at that time. While awaiting arrival of the OR team, patient was given IV fluids as well as 2 units of packed red blood cells. Please see operative note by Dr. Betancur. EBL: 2000 mL total both in the center and in the operating room. Baby 1: Infant gender: Male Presentation: vertex Placenta delivery description: Spontaneous cord vessel description: 2 Vessels
[2019-11-04] MEDS: LACTATED RINGERS 1,000 ML 100 ML IV ×2 (02:10→06:04)
--- NOTE | 2019-11-04 02:25 | SUR.PHASEI ---
pt directly to OR with Rapid response rapid blood and fluid resuscitation during procedure and directly post op.HR 120-140 anesthesia aware and no further intervention ordered at this time
--- NOTE | 2019-11-04 02:32 | SUR.OPER ---
Bakri balloon placed by Dr. Betancur at 0140 with 420cc of normal saline, drainage bag attached.
--- NOTE | 2019-11-04 02:44 | SUR.PHASEI ---
pt ready to transfer to ICU. Pt is nursing baby and after nursing trial we will move to ICU
--- NOTE | 2019-11-04 03:24 | SUR.PHASEI ---
pt stable and transfer to labor and delivery after MD assessment
[2019-11-04 05:59] LABS: Hematocrit 40.1 % (36-46); Hemoglobin 13.6 g/dL (12.0-16.0); Mean Corpuscular HGB Conc 33.9 % (30-36); Mean Corpuscular Volume 85.7 fL (80-100); Platelet Count 192 X10^3/uL (150-400); Red Blood Cell Count 4.68 X10^6/uL (4.0-5.2); Red Cell Distribution Width 15.8 % (11.6-14.8)
[2019-11-04 06:00] LABS: Add Manual Diff / Slide Review YES; White Blood Cell Count 29.7 X10^3/uL (4.5-11.0)
[2019-11-04 06:19] LABS: Neutrophils Absolute Manual 28215 /uL (3000-5900); RBC Morphology Normal Morphology; Total Cells Counted 100
[2019-11-04] MEDS: FERROUS GLUCONATE 324 MG TABLET PO (07:36)
[2019-11-04] MEDS: IBUPROFEN 600 MG TABLET PO ×3 (07:36→19:34)
[2019-11-04] MEDS: PRENATAL VIT,CALC/IRON/FOLIC 1 TABLET 1 TAB PO (07:37)
[2019-11-04] MEDS: OXYCODONE IR 5 MG TABLET PO ×4 (07:37→21:19)
[2019-11-04] MEDS: METHYLERGONOVINE 0.2 MG TABLET PO ×4 (09:07→21:19)
--- NOTE | 2019-11-04 10:25 | PM.OBPN.1 ---
Subjective - OB Subjective Patient comments: pain well controlled [place] baby status: doing well feeding status: exclusively breast feeding Narrative: Patient is status post patient is status post patient is status post reduction of uterine inversion. Bacri balloon is in place. Hemoglobin is excellent. Patient is doing no bleeding. Shelby catheter and IVs continue Date Patient Seen: 11/04/19 Time Patient Seen: 10:27 Exam Vital Signs (past 8 hours): - 11/04/19 02:30 11/04/19 02:40 11/04/19 02:50 Temperature 98.6 F Pulse Rate 125 H 140 H 140 H Respiratory Rate 18 15 18 Blood Pressure 126/61 92/70 130/94 H Pulse Oximetry 96 95 95 11/04/19 03:00 Temperature Pulse Rate 135 H Respiratory Rate 19 Blood Pressure 130/70 Pulse Oximetry 99 Oxygen Delivery Method Room Air Narrative Exam Narrative: Fundus U minus one Lochia scant Perineum intact without ecchymosis Objective Labs Result Diagrams: 11/04/19 04:25 Labs: Laboratory Results - last 24 hr 11/02/19 11/04/19 11/04/19 20:40 04:25 04:25 WBC 29.7 H D RBC 4.68 Hgb Cancelled 13.6 Hct Cancelled 40.1 MCV 85.7 MCH 29.0 MCHC 33.9 RDW 15.8 H Plt Count 192 Neut % (Auto) Not Reportable Lymph % (Auto) Not Reportable [place] % (Auto) Not Reportable Eos % (Auto) Not Reportable Baso % (Auto) Not Reportable Lymph # (Auto) Not Reportable [place] # (Auto) Not Reportable Baso # (Auto) Not Reportable Total Counted 100 Seg Neutrophils % 86.0 H Band Neutrophils % 9.0 H Lymphocytes % (Manual) 3.0 L Monocytes % (Manual) 2.0 Neutrophils # (Manual) 22591 H RBC Morphology Normal morphology Blood Type O Positive Antibody Screen Negative Crossmatch See Detail Assessment & Plan Assessment and Plan (1) hemorrhage: Problem details: Continue IV Status: Acute Current Visit: Yes (2) Uterine inversion: Problem details: Slow reduction in volume of bacri balloons [place] Methergine Status: Acute Current Visit: Yes Time Spent With Patient Time: Total time spent is greater than 50% in coordination of care (as documented) at patient's floor/unit and/or counseling patient: Time with patient: 15-24 minutes
[2019-11-04] MEDS: ACETAMINOPHEN 325 MG TABLET 650 MG PO ×2 (12:44→19:34)
--- NOTE | 2019-11-04 13:10 | P.PNOB_ITS ---
Subjective - OB Subjective Patient comments: pain well controlled [place] baby status: doing well and nursing well [place] feeding status: exclusively breast feeding Narrative: Patient reports adequate pain control with ibuprofen, Tylenol and oxycodone. She primarily has pain in her vagina. Date Patient Seen: 11/04/19 Time Patient Seen: 12:15 Exam Vital Signs (past 8 hours): Oxygen Delivery Method Room Air Temperature 98.6? blood pressure 125/74 heart rate 4 respirations 16 Narrative Exam Narrative: General: Awake and alert, no acute distress. HEENT: NCAT, EOMI, moist oral mucosa CV: Regular rate and rhythm, no murmurs, rubs or gallops Lungs: CTAB, no wheezes, rales, or rhonchi Abdomen: Soft, nontender; bowel tones active; uterus firm just below the marked line 3 above the umbilicus Extremities: Warm, no edema, 2+ pedal pulses bilaterally Objective Labs Result Diagrams: 11/04/19 04:25 Labs: Laboratory Results - last 24 hr 11/02/19 11/04/19 11/04/19 20:40 04:25 04:25 WBC 29.7 H D RBC 4.68 Hgb Cancelled 13.6 Hct Cancelled 40.1 MCV 85.7 MCH 29.0 MCHC 33.9 RDW 15.8 H Plt Count 192 Neut % (Auto) Not Reportable Lymph % (Auto) Not Reportable [place] % (Auto) Not Reportable Eos % (Auto) Not Reportable Baso % (Auto) Not Reportable Lymph # (Auto) Not Reportable [place] # (Auto) Not Reportable Baso # (Auto) Not Reportable Total Counted 100 Seg Neutrophils % 86.0 H Band Neutrophils % 9.0 H Lymphocytes % (Manual) 3.0 L Monocytes % (Manual) 2.0 Neutrophils # (Manual) 56106 H RBC Morphology Normal morphology Blood Type O Positive Antibody Screen Negative Crossmatch See Detail Assessment & Plan Assessment and Plan (1) 40 weeks gestation of : Status: Acute Current Visit: No (2) Spontaneous vaginal delivery: Status: Acute Current Visit: Yes (3) Uterine inversion: Problem details: Slow reduction in volume of bacri balloons [place] Methergine Status: Acute Current Visit: Yes (4) hemorrhage: Problem details: Continue IV Status: Acute Current Visit: Yes Plan day: 1 Comments: day 1 after complicated by uterine inversion and hemorrhage requiring uterine reduction in the OR under general anesthesia with placement of a bakri balloon. She is also s/p transfusion of 4 units of PRBCs with stable H/H. Vital signs stable, bleeding decreasing. Appreciate consultation and management with Dr. Betancur. Bakri is gradually being released by nursing staff and patient is receiving methergine. Will continue cefotetan for two more doses. Continue routine care with support. Time Spent With Patient Time: Total time spent is greater than 50% in coordination of care (as documented) at patient's floor/unit and/or counseling patient: Time with patient: 15-24 minutes
[2019-11-05] MEDS: OXYCODONE IR 5 MG TABLET PO ×5 (01:30→23:10)
[2019-11-05] MEDS: IBUPROFEN 600 MG TABLET PO ×4 (01:31→23:10)
[2019-11-05] MEDS: ACETAMINOPHEN 325 MG TABLET 650 MG PO ×2 (01:31→10:21)
[2019-11-05] MEDS: METHYLERGONOVINE 0.2 MG TABLET PO ×3 (01:31→10:22)
[2019-11-05] MEDS: CEFOTETAN 2 GM/50 ML PIGGYBACK IV (01:33)
[2019-11-05 07:45] LABS: Add Manual Diff / Slide Review NO; Basophils Absolute Auto 100 /uL (0-100); Basophils Percent Auto 0.4 % (0-2); Eosinophils Absolute Auto 200 /uL (0-450); Eosinophils Percent Auto 0.9 % (2-4); Hematocrit 26.3 % (36-46); Hemoglobin 9.1 g/dL (12.0-16.0); Lymphocytes Absolute Auto 2700 /uL (1100-4500); Lymphocytes Percent Auto 16.1 % (25-40); Mean Corpuscular HGB Conc 34.5 % (30-36); Mean Corpuscular Hemoglobin 29.5 PG (26-34); Mean Corpuscular Volume 85.3 fL (80-100); Monocytes Absolute Auto 1300 /uL (0-900); Monocytes Percent Auto 7.6 % (3-14); Neutrophils Absolute Auto 12400 /uL (1500-7000); Red Blood Cell Count 3.08 X10^6/uL (4.0-5.2); Red Cell Distribution Width 15.8 % (11.6-14.8); White Blood Cell Count 16.5 X10^3/uL (4.5-11.0)
[2019-11-05] MEDS: FERROUS GLUCONATE 324 MG TABLET PO (08:19)
[2019-11-05] MEDS: PRENATAL VIT,CALC/IRON/FOLIC 1 TABLET 1 TAB PO (08:19)
--- NOTE | 2019-11-05 09:16 | P.PNOB_ITS ---
Subjective - OB Subjective Patient comments: no complaints [place] baby status: doing well [place] feeding status: exclusively breast feeding Narrative: 2. day Date Patient Seen: 11/05/19 Time Patient Seen: 09:17 Interval history: Patient is a 24-year-old white female one para one status post spontaneous vaginal delivery and then uterine inversion. Patient was taken to the OR where the uterus was replaced and the bleeding subsided. Patient was transfused 4 units of pack cells. Her initial hematocrit were high but with equilibrium her hematocrit today is 26%. The bacri balloon is been removed. Shelby is out. Patient has a hep lock. She is taking p.o. well. She is ambulating well. Exam Vital Signs (past 8 hours): Oxygen Delivery Method Room Air Narrative Exam Narrative: Fundus U minus two Lochia scant Objective Labs Result Diagrams: 11/05/19 07:20 Labs: Laboratory Results - last 24 hr 11/02/19 11/05/19 20:40 07:20 WBC 16.5 H RBC 3.08 L Hgb 9.1 L Hct 26.3 L MCV 85.3 MCH 29.5 MCHC 34.5 RDW 15.8 H Plt Count Neut % (Auto) 75.0 Lymph % (Auto) 16.1 L [place] % (Auto) 7.6 Eos % (Auto) 0.9 L Baso % (Auto) 0.4 Neut # (Auto) 52456 H Lymph # (Auto) 2700 [place] # (Auto) 1300 H Eos # (Auto) 200 Baso # (Auto) 100 Blood Type O Positive Antibody Screen Negative Crossmatch See Detail Assessment & Plan Plan day: 2 plan OB: routine care Comments: bacri balloon is been removed. Shelby is out. Patient is a bleeding well. Hematocrit peers to have stabilized at 26%. She remains afebrile with stable vital signs. Time Spent With Patient Time: Total time spent is greater than 50% in coordination of care (as documented) at patient's floor/unit and/or counseling patient: Time with patient: less than 15 minutes
--- NOTE | 2019-11-05 09:53 | PM.OBPN.1 ---
Subjective - OB Subjective Date Patient Seen: 11/05/19 Time Patient Seen: 09:24 Interval history: Patient is tired this morning since she has not slept much but overall doing well. Vaginal bleeding is very light. She is ambulating, eating, voiding and passing flatus. Working on , having some difficulty with latching. Exam Vital Signs (past 8 hours): Oxygen Delivery Method Room Air Narrative Exam Narrative: General: Awake and alert, no acute distress. HEENT: NCAT, EOMI, moist oral mucosa CV: Regular rate and rhythm, no murmurs, rubs or gallops Lungs: CTAB, no wheezes, rales, or rhonchi Abdomen: Soft, nontender; bowel tones active; uterus firm at umbilicus Extremities: Warm, 1+ edema bilaterally, 2+ pedal pulses bilaterally Objective Labs Result Diagrams: 11/05/19 07:20 Labs: Laboratory Results - last 24 hr 11/02/19 11/05/19 20:40 07:20 WBC 16.5 H RBC 3.08 L Hgb 9.1 L Hct 26.3 L MCV 85.3 MCH 29.5 MCHC 34.5 RDW 15.8 H Plt Count Neut % (Auto) 75.0 Lymph % (Auto) 16.1 L [place] % (Auto) 7.6 Eos % (Auto) 0.9 L Baso % (Auto) 0.4 Neut # (Auto) 78512 H Lymph # (Auto) [address] [place] # (Auto) 1300 H Eos # (Auto) 200 Baso # (Auto) 100 Blood Type O Positive Antibody Screen Negative Crossmatch See Detail Assessment & Plan Assessment and Plan (1) Acute blood loss anemia: Status: Acute Current Visit: Yes (2) Uterine inversion: Status: Acute Current Visit: Yes (3) 40 weeks gestation of : Status: Acute Current Visit: Yes (4) Spontaneous vaginal delivery: Status: Acute Current Visit: Yes Plan day: 2 plan OB: routine care Comments: Patient is a 24-year-old after spontaneous vaginal delivery complicated by uterine inversion require reduction in the OR. She also received 4 units of packed red blood cells due to hemorrhage associated with uterine inversion. Today she is doing well. Bakri balloon removed yesterday. Bleeding is light and vital signs are stable. She is anemic as expected though not severely so. Will start iron today. Anticipate discharge home tomorrow. Discharge medications have been sent to her pharmacy in preparation. She will need to follow-up with Dr. Rodriguez for a 6 week visit. Time Spent With Patient Time: Total time spent is greater than 50% in coordination of care (as documented) at patient's floor/unit and/or counseling patient: Time with patient: 15-24 minutes
[2019-11-06] MEDS: IBUPROFEN 600 MG TABLET PO ×2 (06:40→15:01)
[2019-11-06] MEDS: OXYCODONE IR 5 MG TABLET PO (06:41)
[2019-11-06 06:44] LABS: Add Manual Diff / Slide Review NO; Basophils Absolute Auto 0 /uL (0-100); Basophils Percent Auto 0.3 % (0-2); Eosinophils Absolute Auto 200 /uL (0-450); Eosinophils Percent Auto 1.2 % (2-4); Hemoglobin 9.3 g/dL (12.0-16.0); Lymphocytes Absolute Auto 2700 /uL (1100-4500); Lymphocytes Percent Auto 18.4 % (25-40); Mean Corpuscular HGB Conc 34.6 % (30-36); Mean Corpuscular Hemoglobin 29.6 PG (26-34); Mean Corpuscular Volume 85.5 fL (80-100); Monocytes Absolute Auto 1000 /uL (0-900); Monocytes Percent Auto 6.8 % (3-14); Neutrophils Absolute Auto 10900 /uL (1500-7000); Neutrophils Percent Auto 73.3 % (50-75); Platelet Count 191 X10^3/uL (150-400); Red Blood Cell Count 3.16 X10^6/uL (4.0-5.2); Red Cell Distribution Width 15.7 % (11.6-14.8); White Blood Cell Count 14.9 X10^3/uL (4.5-11.0)
--- NOTE | 2019-11-06 08:54 | PM.OBPN.1 ---
Subjective - OB Subjective Patient comments: pain well controlled [place] baby status: doing well and nursing well [place] feeding status: breast and bottle feeding Narrative: This patient is a 24-year-old not day 2 status post vaginal delivery complicated by uterine inversion, chase balloon, and blood transfusion. Patient reports that her bleeding is scant, and her only complaint today is ?when they put the tube in in the OR, they tore a dingling in my throat and its feels weird. She denies fevers, chills, VEGA, visual changes, or other preeclampsia symptoms. Her blood pressure has increased overnight, but appears to be reverting to her prior baseline. Date Patient Seen: 11/06/19 Time Patient Seen: 09:02 Exam Vital Signs (past 8 hours): 141/77, HR 100 Oxygen Delivery Method Room Air HENMT Head: normal to inspection Mouth: other (No obvious damage from ET tube.) Resp Effort & Inspection: normal respiratory effort Auscultation: clear to auscultation bilaterally Cardio Rate: regular rate Rhythm: regular rhythm GI Palpation: soft and No tender Skin General: no rashes or lesions noted Objective Labs Result Diagrams: 11/06/19 06:33 Labs: Laboratory Results - last 24 hr 11/06/19 06:33 WBC 14.9 H RBC 3.16 L Hgb 9.3 L Hct 27.0 L MCV 85.5 MCH 29.6 MCHC 34.6 RDW 15.7 H Plt Count 191 Neut % (Auto) 73.3 Lymph % (Auto) 18.4 L [place] % (Auto) 6.8 Eos % (Auto) 1.2 L Baso % (Auto) 0.3 Neut # (Auto) 35168 H Lymph # (Auto) 2700 [place] # (Auto) 1000 H Eos # (Auto) 200 Baso # (Auto) 0 Assessment & Plan Assessment and Plan (1) Acute blood loss anemia: Status: Acute Current Visit: Yes (2) Uterine inversion: Status: Acute Current Visit: Yes (3) 40 weeks gestation of : Status: Acute Current Visit: Yes (4) Spontaneous vaginal delivery: Status: Acute Current Visit: Yes Plan day: 2 plan OB: discharge home Comments: This patient is meeting goals, with no signs of hemorrhage, no signs of infection, and no signs or symptoms of preeclampsia. Blood pressure baseline appears to be at or just below 140/90, and she has been stable at this baseline overnight. I counseled the patient on and discharge precautions, and we discussed evaluating her throat with anesthesia prior to discharge. The patient vocalized understanding, and all questions were answered. I encouraged the patient to follow up in clinic in 1 week to her blood pressures and bleeding. Time Spent With Patient Time: Total time spent is greater than 50% in coordination of care (as documented) at patient's floor/unit and/or counseling patient: Time with patient: 25 - 35 minutes
--- NOTE | 2019-11-06 09:07 | P.DS_ITS ---
Discharge Providers Provider Date of admission: 11/02/19 19:33 Discharge Date: 11/06/19 Primary care physician: Mary Rodriguez DO Consults: 11/05/19 02:06 Consult to Managing Editor Routine Comment: Discharge provider: Jenise Jaime MD Summary Hospital Course Date Patient Seen: 11/06/19 Time Patient Seen: 10:00 Procedures: Spontaneous vaginal delivery, reduction of inverted uterus in OR Hospital Course: This patient was admitted for induction of labor for a single umbilical artery, and was induced with cervidil and pitocin per the usual protocol. She was delivered via , and noted to have a uterine inversion with persistent moderate vaginal bleeding shortly after delivery. She was transferred to the OR where the uterus was reduced, and she requred transfusion of 4u pRBCs along with TXA, hemabate and pitocin.. She had a Bakri balloon which was removed the next day, with no further complications and discharge home on PPD#2. Peripartum Data Delivery Method: Natural Vaginal Laceration description: Labial complications: other (see above) [place] 1: Gender: Male Disposition of : home Discharge Diagnosis (1) Acute blood loss anemia: Status: Acute (2) Uterine inversion: Status: Acute (3) 40 weeks gestation of : Status: Acute (4) Spontaneous vaginal delivery: Status: Acute Status at Discharge Cognitive/behavioral status at discharge: oriented Functional status at discharge: independent ambulation Overall status at discharge: patient is progressing back to baseline Time Spent with Patient Time attestation: Total time spent providing and/or coordinating discharge services: Time spent: Greater than 30 minutes Objective Labs Result Diagrams: 11/06/19 06:33 Labs: Laboratory Results - last 24 hr 11/06/19 06:33 WBC 14.9 H RBC 3.16 L Hgb 9.3 L Hct 27.0 L MCV 85.5 MCH 29.6 MCHC 34.6 RDW 15.7 H Plt Count 191 Neut % (Auto) 73.3 Lymph % (Auto) 18.4 L [place] % (Auto) 6.8 Eos % (Auto) 1.2 L Baso % (Auto) 0.3 Neut # (Auto) 98998 H Lymph # (Auto) 2700 [place] # (Auto) 1000 H Eos # (Auto) 200 Baso # (Auto) 0 Exam Vital Signs (past 8 hours): Oxygen Delivery Method Room Air Discharge Plan Discharge Plan Patient Disposition: Home Discharge orders & Medications Prescriptions: New ibuprofen 600 mg Tablet 600 mg PO Q6HR PRN (Reason: Pain, Mild (1-3)) Qty: 30 RF: 0 oxycodone 5 mg Tablet 5 mg PO Q4HR PRN (Reason: Pain, Moderate (4-6)) Qty: 20 RF: 0 ferrous gluconate 324 mg (38 mg iron) Tablet 324 mg PO DAILY Qty: 30 RF: 0 Continued Tums 1 tab PO PRN PRN (Reason: Indigestion) RF: 0 Classic 28 mg iron- 800 mcg Tablet 1 tab PO DAILY RF: 0 Follow up/Referrals: Mary Rodriguez DO [Primary Care Provider] - 2 Weeks (Pt. will call for appt. time) Diet/Activity/Treatments Diet: Regular Activity: Nothing in the vagina for 6 weeks. Avoid heavy lifting for 6 weeks. If you have some [place]iv[place] increased bleeding, fevers, chills, nausea, headaches, or any other concerning symptoms, call or come to the emergency room. Skin/Wound/Dressing Care Report to your healthcare provider any signs of infection, such as:: chills, fever, night sweats, increased pain, unusual drainage and unusual redness Visit Report/Discharge Packet Instructions: DI for Labor and Delivery, Vaginal Stand Alone Forms: Discharge: Care Visit Report Forms: Patient Portal/API, Stroke Signs & Symptoms Discharge Data Primary Care Provider: Mary Rodriguez Discharges patient from system. Discharge Date/Time: 11/06/19 15:45
[2019-11-06] MEDS: PRENATAL VIT,CALC/IRON/FOLIC 1 TABLET 1 TAB PO (09:58)
[2019-11-06] MEDS: FERROUS GLUCONATE 324 MG TABLET PO (09:58)
[2019-11-06 14:11] VITALS: BP 131/85; PULSE 93; RESP 18; TEMP 37
[2019-11-06 15:01] VITALS: TEMP 36.8
[2019-11-06] MEDS: LANOLIN OINT 7 GM 1 APPLIC TOP (15:01)
[2019-11-06] MEDS: MEASLES,MUMPS,RUBELLA VACC/PF 0.5 ML VIAL SUBCUT (15:38)
== END 2019-11-06 15:45 | disposition home or self-care (01) | DRG 542 ==
PROVIDERS: Admitting Provider Family Medicine; PCP Family Medicine; Referring Provider Family Medicine; Visit Provider Family Medicine
PROC: 0US97ZZ Reposition Uterus, Via Natural or Artificial Opening (ICD-10-PCS; CPT 58120; principal; 2019-11-04 01:15)
DX: O69.89X0 Labor and delivery complicated by other cord complications, not applicable or unspecified (principal); E66.9 Obesity, unspecified; O71.2 Postpartum inversion of uterus; D62 Acute posthemorrhagic anemia; Z3A.40 40 weeks gestation of pregnancy; O99.214 Obesity complicating childbirth; Z37.0 Single live birth; O99.824 Streptococcus B carrier state complicating childbirth; O70.0 First degree perineal laceration during delivery; O67.8 Other intrapartum hemorrhage
CPT/HCPCS: 01967; 36415; 36430; 59025; 59050; 59200; 59409; 59899; 76857; 85025; 86850; 86900; 86901; 86927; P9016; G0379; J0330; J2250; J2405; J2540; J2590; J2704; J3010; S0191

== ENCOUNTER 2019-11-06 19:05 | Emergency (ER) | payer OTHER, MEDICAID, SELFPAY ==
[2019-11-06 19:11] VITALS: BP 168/93; PULSE 87; RESP 22; TEMP 36.2; O2SAT 100
--- NOTE | 2019-11-06 19:15 | ED.LOWEXIN ---
HPI - Extremity Injury (Lower) General Chief Complaint: Extremity Injury, Lower Stated Complaint: Thinks Possible Blood Clott Time Seen by Provider: 11/06/19 19:15 Source: patient Mode of arrival: Ambulatory History of Present Illness HPI Narrative: 24-year-old woman who is 3 days vaginal delivery complicated by uterine inversion. She was discharged home approximately 2 hours prior to arrival in the emergency department. She returns concerned that her right leg is more swollen and her foot is tender and she is convinced that she has DVT. She has been taking a fair amount of ibuprofen for her pain and is emotionally distraught because she feels like she is not caring for her baby. When she talked with her OBGYN the OB recommended she bring her baby to the emergency room visit so that she could nurse while being taking care of. Yesenia did not do that and is now also complaining of breast fullness as she has not nursed for almost 5-1/2 hours. Will see if breast pumps are available while waiting for ultrasound Related Data Home Medications Medication Instructions Recorded Confirmed Tums 1 tab PO PRN PRN 05/25/19 11/02/19 Classic 1 tab PO DAILY 10/24/19 11/02/19 Previous Rx's Medication Instructions Recorded ferrous gluconate 324 mg PO DAILY #30 tab 11/05/19 ibuprofen 600 mg PO Q6HR PRN #30 tab 11/05/19 oxycodone 5 mg PO Q4HR PRN #20 tab 11/05/19 Allergies Allergy/AdvReac Type Severity Reaction Status Date / Time adhesive Allergy Mild Hives Verified 11/04/19 04:51 Latex, Natural Rubber Allergy Swelling Verified 10/21/19 11:02 Review of Systems Review of Systems Narrative: Markedly positive, fatigue, pain, edema, vaginal discharge, anxiety, emotional distress, difficulty with breast feeding and latch She does not report fever, cough, tachycardia, chest pain Patient History Medical History Anxiety (Chronic) Bipolar disorder (Chronic) Depression (Chronic) Surgical History H/O dilation and curettage (Resolved) History of tonsillectomy (Resolved) Family History Mother Ovarian cancer Social History Smoking Status: Former smoker alcohol intake: former substance use type: marijuana Smoking Status: Former smoker alcohol intake frequency: holidays/special occasions only Substance Use Type: does not use Exam Narrative Exam Narrative: General: Alert appropriate, crying and states she feels that she is a failure because she is in taking care of her baby right now Respiratory: Able to speak in full sentences, no obvious respiratory distress Skin: No obvious rashes, warm and dry Neurologic: Grossly intact no obvious asymmetries or abnormalities Psych, appropriate insight and affect, cooperative Extremity: 2+ lower extremity edema bilaterally. Nonpitting. She complains of tenderness over the dorsum of her foot due to the edema. She has no tenderness when squeezing her calf but does complain of tenderness when dorsiflexing both feet bilaterally. She is convinced that her right leg is significantly more swollen than her left leg. On physical exam I am having difficulty differentiating significant differences between the legs Initial Vital Signs Initial Vital Signs: Vital Signs Temperature 97.2 F L 11/06/19 19:11 Pulse Rate 87 11/06/19 19:11 Respiratory Rate 22 11/06/19 19:11 Blood Pressure 168/93 H 11/06/19 19:11 Pulse Oximetry 100 11/06/19 19:11 Course Orders Ordered: ED Orders 11/06/19 19:29 periph venous up extrem rt Stat Vital Signs Vital signs: Vital Signs - 8 hr 11/06/19 19:11 11/06/19 22:00 Temperature 97.2 F L Pulse Rate 87 97 H Respiratory Rate 22 18 Blood Pressure 168/93 H Blood Pressure [Right Arm] 143/85 H Pulse Oximetry 100 97 MDM - Extremity Injury (Lower) Medical Records Attestation: I reviewed the patient's medical records. Imaging Data Right lower extremity venous ultrasound: Radiologist's Impression: Per occupational health technician, no evidence of DVT Discharge Plan Departure Patient Disposition: Home Clinical Impression: Edema Qualifiers: Edema type: unspecified Qualified Code(s): R60.9 - Edema, unspecified Discharge Date/Time: 11/06/19 22:30 Instructions: DI for Peripheral Edema -- Bilateral Activity Restrictions/Additional Instructions: Congratulations on new baby. You do not have a blood clot in your leg. You do have quite a bit of edema and this is not uncommon after being in the hospital, receiving blood in fluids and delivering a baby as well as taking ibuprofen. It often takes a couple of days for the fluid to start moving around but it will, you will have quite a bit more urine coming out and will feel like your feet are getting back to their normal size. I wish you the best. Good luck with your breast-feeding. Prescriptions: No Action ibuprofen 600 mg Tablet 600 mg PO Q6HR PRN (Reason: Pain, Mild (1-3)) Qty: 30 RF: 0 oxycodone 5 mg Tablet 5 mg PO Q4HR PRN (Reason: Pain, Moderate (4-6)) Qty: 20 RF: 0 ferrous gluconate 324 mg (38 mg iron) Tablet 324 mg PO DAILY Qty: 30 RF: 0 Tums 1 tab PO PRN PRN (Reason: Indigestion) RF: 0 Classic 28 mg iron- 800 mcg Tablet 1 tab PO DAILY RF: 0 Referrals: Mary Rodriguez DO [Primary Care Provider] -
--- NOTE | 2019-11-06 19:29 | DI.US.S_ITS ---
PROCEDURE: US PERIPH VENOUS LOW EXTREM RT INDICATIONS: R LE EDEMA AND PAIN TECHNIQUE: Real-time imaging, as well as color and pulse Doppler interrogation, were performed of the lower extremity deep veins from the inguinal ligament to the popliteal fossa. COMPARISON: None. FINDINGS: The common femoral, femoral and popliteal veins are normally compressible, and free of intraluminal thrombus. Color and pulse Doppler demonstrate normal phasic intraluminal flow. There is normal augmentation response to distal compression maneuver. IMPRESSION: No DVT in the right lower extremity. Dictated by: Megan Simmons M.D. on 11/06/2019 at 22:29 Approved by: Megan Simmons M.D. on 11/06/2019 at 22:29
[2019-11-06 22:00] VITALS: BP 143/85; PULSE 97; RESP 18; O2SAT 97
== END 2019-11-06 22:30 | disposition home or self-care (01) ==
PROVIDERS: Emergency Provider Emergency Medicine; PCP Family Medicine
DX: R60.0 Localized edema (principal)
CPT/HCPCS: 93971; 99281; 99283

== ENCOUNTER 2019-11-07 12:36 | Outpatient (CLI) | payer OTHER, MEDICAID, SELFPAY ==
[2019-11-07 13:03] LABS: Add Manual Diff / Slide Review NO; Basophils Absolute Auto 0 /uL (0-100); Basophils Percent Auto 0.4 % (0-2); Eosinophils Absolute Auto 200 /uL (0-450); Eosinophils Percent Auto 1.9 % (2-4); Hematocrit 28.1 % (36-46); Hemoglobin 9.5 g/dL (12.0-16.0); Lymphocytes Absolute Auto 2000 /uL (1100-4500); Lymphocytes Percent Auto 16.6 % (25-40); Mean Corpuscular HGB Conc 33.8 % (30-36); Mean Corpuscular Hemoglobin 29.2 PG (26-34); Mean Corpuscular Volume 86.3 fL (80-100); Monocytes Absolute Auto 600 /uL (0-900); Neutrophils Absolute Auto 8900 /uL (1500-7000); Neutrophils Percent Auto 76.1 % (50-75); Platelet Count 259 X10^3/uL (150-400); Red Blood Cell Count 3.26 X10^6/uL (4.0-5.2); Red Cell Distribution Width 15.9 % (11.6-14.8); White Blood Cell Count 11.8 X10^3/uL (4.5-11.0)
[2019-11-07 13:14] LABS: Alanine Aminotransferase 26 IU/L (<35); Albumin 3.3 g/dL (3.5-5.0); Albumin Globulin Ratio 1.1 (1.0-2.8); Alkaline Phosphatase 89 U/L (38-126); Aspartate Aminotransferase 37 IU/L (14-36); Bilirubin Total 0.3 mg/dL (0.2-1.3); Blood Urea Nitrogen 9 mg/dL (7-17); Calcium 9.1 mg/dL (8.4-10.2); Carbon Dioxide 27 mmol/L (22-32); Chloride 106 mmol/L (98-107); Estimated Glomerular Filt Rate > 60.0 mL/min (>60); Glucose 88 mg/dL (70-100); HEMOLYSIS < 15 (0-50); Potassium 4.3 mmol/L (3.4-5.1); Sodium 139 mmol/L (137-145); Total Protein 6.3 g/dL (6.3-8.2); Uric Acid 5.7 mg/dL (2.5-6.2)
--- NOTE | 2019-11-07 13:49 | PC.NURSE ---
1300 PATIENT ADMITTED S/P VAGINAL DELIVERY WITH INVOLUTION OF UTERUS,AMBULATED ACCOMPAINED BY HUSBANS.DENIES ANY PAIN OR DISCOMFORT.ALERT AND ORIENTED X3.HAD ELEVATED BP AT OFFICE.NONPITTNG EDEMA TO BILATERAL FEET.LAB FOR ORDERS TAKEN,CATH URINE SENT TO LAB. HERE TO CONSULT WITH ; REPORTED BP 148/95
[2019-11-07 13:50] LABS: Appearance Urine UA CLEAR; Bilirubin Urine UA NEGATIVE (NEGATIVE); Color Urine UA YELLOW; Glucose Urine UA NEGATIVE (Negative); Ketones Urine UA NEGATIVE (NEGATIVE); Leukocyte Esterase Urine UA NEGATIVE (NEGATIVE); Nitrite Urine UA NEGATIVE (Negative); Occult Blood Urine UA 2+ (Negative); Protein Urine UA NEGATIVE (Negative); Specific Gravity Urine UA 1.015 (1.000-1.035); Urobilinogen Urine UA 0.2 E.U./dL (0.2)
[2019-11-07 13:57] LABS: pH Urine UA 7.5 (4.5-8.0)
[2019-11-07 14:00] LABS: RBC Urine 5-10/HPF (0-5/HPF)
[2019-11-07 14:01] LABS: Bacteria Urine Occasional (0-1); Culture Indicated Urine Cult Not Indicated; Squamous Epithelial Cell Urine 0-1 /HPF (0-5/HPF); WBC Urine 0-1/HPF (0-5/HPF)
[2019-11-07 14:59] LABS: Protein (Total) Urine Random 12 mg/dL (0-12); Protein Creatinine Ratio Urine 0.14 GRAM/24H
[2019-11-07 15:04] VITALS: BP 151/95; PULSE 95; RESP 16; TEMP 37.2
[2019-11-07 16:56] VITALS: BP 151/93; PULSE 102; RESP 16; O2SAT 98
--- NOTE | 2019-11-07 17:01 | P.HP_ITS ---
History of Present Illness History of Present Illness Date Patient Seen: 11/08/19 Time Patient Seen: 13:00 Chief complaint: Observation Narrative: Pt is a 24yo PPD #3 s/p spontaneous vaginal delivery complicated by uterine inversion and hemorrhage requiring transfusion of 4 units PRBCs. The pt did receive Methergine due to the hemorrhage. The pt now presents due to elevated blood pressures in clinic to severe range. The pt reports that since leaving the hospital, her vision has been slightly blurry. She also sees black spots occasionally. She has a mild headache, that Tylenol does help alleviate. The pt reports that these symptoms seem to improve when she is able to get more sleep. She also has not had anything to eat or drink yet today. Her lochia continues to decrease appropriately. She has abdominal cramping, but denies RUQ abdominal pain. Yesterday, she developed an increase in swelling in her right foot. She came to the ER for evaluation, where her blood pressure was initially 168/93, and on repeat was 143/85. Doppler was completed of her right extremity which showed no evidence of DVT. The pt was then discharged home. The pt feels that her swelling has not worsened nor improved from yesterday. She has not been elevating her feet at home. She denies any issues with her blood pressure throughout her . She does not know of any family history of hypertension of pre-eclampsia. Patient History Medical History Anxiety (Chronic) Bipolar disorder (Chronic) Depression (Chronic) Surgical History H/O dilation and curettage (Resolved) History of tonsillectomy (Resolved) Family & Social History Family History Mother Ovarian cancer Tobacco & Substance use: Tobacco type cigarettes Smoking Status Former smoker alcohol intake former alcohol intake frequency holiday/special occasion Substance Use Type does not use Meds Home Medications and Allergies Home Medications Medication Instructions Recorded Confirmed Type Tums 1 tab PO PRN PRN 05/25/19 11/02/19 History ferrous gluconate 324 mg PO DAILY #30 tab 11/05/19 Rx ibuprofen 600 mg PO Q6HR PRN #30 tab 11/05/19 Rx oxycodone 5 mg PO Q4HR PRN #20 tab 11/05/19 Rx metoprolol tartrate 25 mg PO BID #60 tab 11/07/19 Rx vits no.126-ferrous fum 1 tab PO DAILY #90 tab 11/07/19 11/07/19 Rx 28 mg iron-folic acid 800 mcg tablet Allergies Allergy/AdvReac Type Severity Reaction Status Date / Time adhesive Allergy Mild Hives Verified 11/04/19 04:51 Latex, Natural Rubber Allergy Swelling Verified 10/21/19 11:02 Exam Vital Signs (past 8 hours): - 11/07/19 15:04 11/07/19 16:56 Temperature 99.0 F Pulse Rate 95 H 102 H Respiratory Rate 16 16 Blood Pressure 151/95 H 151/93 H Pulse Oximetry 98 Narrative Exam Narrative: Gen: NAD, sitting comfortably in bed, appears well HEENT: vision, including peripheral vision, intact bilaterally CV: RRR, no murmurs Resp: clear to auscultation bilaterally Abd: soft, nontender, nondistended, fundus firm and below the umbilicus Ext: right foot with 1+ pitting edema, left foot with trace edema; no significant edema ankle level and above Objective Labs Result Diagrams: 11/07/19 12:55 11/07/19 12:55 Labs: Laboratory Results - last 24 hr 11/07/19 11/07/19 11/07/19 12:55 12:55 13:30 WBC 11.8 H RBC 3.26 L Hgb 9.5 L Hct 28.1 L MCV 86.3 MCH 29.2 MCHC 33.8 RDW 15.9 H Plt Count 259 Neut % (Auto) 76.1 H Lymph % (Auto) 16.6 L [place] % (Auto) 5.0 Eos % (Auto) 1.9 L Baso % (Auto) 0.4 Neut # (Auto) 8900 H Lymph # (Auto) 2000 [place] # (Auto) 600 Eos # (Auto) 200 Baso # (Auto) 0 Sodium 139 Potassium 4.3 Chloride 106 Carbon Dioxide 27 BUN 9 Creatinine 0.50 L Estimated GFR > 60.0 BUN/Creatinine Ratio 18.0 Glucose 88 Uric Acid 5.7 Calcium 9.1 Total Bilirubin 0.3 AST 37 H ALT 26 Alkaline Phosphatase 89 Total Protein 6.3 Albumin 3.3 L Globulin 3.0 Albumin/Globulin Ratio 1.1 Urine Color Yellow Urine Appearance Clear Urine pH 7.5 Ur Specific [place] 1.015 Urine Protein Negative Urine Glucose (UA) Negative Urine Ketones Negative Urine Occult Blood 2+ H Urine Nitrate Negative Urine Bilirubin Negative Urine Urobilinogen 0.2 Ur Leukocyte Esterase Negative Urine RBC 5-10/hpf H Urine WBC 0-1/hpf Ur Squamous Epith Cells 0-1 /hpf Urine Bacteria Occasional (0-1) D Ur Culture Indicated? Cult not indicated U Random Total Protein Urine Creatinine Protein/Creatinin Ratio 11/07/19 13:30 WBC RBC Hgb Hct MCV MCH MCHC RDW Plt Count Neut % (Auto) Lymph % (Auto) [place] % (Auto) Eos % (Auto) Baso % (Auto) Neut # (Auto) Lymph # (Auto) [place] # (Auto) Eos # (Auto) Baso # (Auto) Sodium Potassium Chloride Carbon Dioxide BUN Creatinine Estimated GFR BUN/Creatinine Ratio Glucose Uric Acid Calcium Total Bilirubin AST ALT Alkaline Phosphatase Total Protein Albumin Globulin Albumin/Globulin Ratio Urine Color Urine Appearance Urine pH Ur Specific [place] Urine Protein Urine Glucose (UA) Urine Ketones Urine Occult Blood Urine Nitrate Urine Bilirubin Urine Urobilinogen Ur Leukocyte Esterase Urine RBC Urine WBC Ur Squamous Epith Cells Urine Bacteria Ur Culture Indicated? U Random Total Protein 12 Urine Creatinine 81.0 Protein/Creatinin Ratio 0.14 Assessment & Plan Assessment and plan (1) hypertension: Current visit: No Status: Acute Assessment & Plan narrative: Pt is a 24yo PPD #3 s/p spontaneous vaginal delivery complicated by uterine inversion and hemorrhage requiring transfusion of 4 units PRBCs. Now presenting with elevated blood pressures. BP consistently elevated in the center on 3 checks, however none to severe range. Labs show no evidence of pre-eclampsia or HELLP. Pts symptoms are improved somewhat after hydration and some more rest. Two checks, 2 hours apart, > 150 systolic. Based on this, will start Metoprolol 25mg BID. Recommend pt continue to check her BP at home BID until f/u with Dr Rodriguez next week. If > 150/100, she will contact this office. If > 160/110, and with rest does not improve, will come to the ER for further evaluation. Strongly encouraged her to eat regular meals and work on adequate hydration, especially when . If vision changes, headache, swelling worsening, she should contact the clinic as well. F/U in [address] Rodriguez. Time Spent With Patient Time with patient: Greater than 35 minutes
--- NOTE | 2019-11-07 17:23 | PC.NURSE ---
1700: Dr. Ridley at bedside, discussing discharge instructions and plan of care. 1720: pt discharged home w/ instructions
== END 2019-11-07 17:29 | disposition home or self-care (01) ==
LOC: LABOR 17:01 → OB 12-20 16:42
PROVIDERS: Family Medicine; PCP Family Medicine; Referring Provider Family Medicine; Visit Provider Family Medicine
DX: O16.5 Unspecified maternal hypertension, complicating the puerperium (principal); R60.9 Edema, unspecified
CPT/HCPCS: 36415; 80053; 81001; 82570; 84156; 84550; 85025; 99235; G0378; G0379

== ENCOUNTER → 2020-01-05 15:27 | Outpatient (CLI) | payer OTHER, MEDICAID, SELFPAY ==
--- NOTE | 2020-01-05 15:37 | DI.US.S_ITS ---
PROCEDURE: US ABDOMEN COMPLETE INDICATIONS: RUQ pain, suspect gallstones TECHNIQUE: Real-time scanning was performed of the abdominal and retroperitoneal organs, with image documentation. COMPARISON: [facility], US, US ABDOMEN COMPLETE, 03/18/2019, 11:18. FINDINGS: Liver: Liver is normal in size and homogeneous in echotexture. Gallbladder: The gallbladder is filled with gallstones. The gallbladder wall is thickened and edematous, measuring 8 mm. There is pericholecystic fluid seen. The sonographic Lunsford sign is positive. Biliary ducts: Intrahepatic bile ducts are non-dilated. Extrahepatic bile duct caliber measures 4 mm. Normal is 6-7 mm or less in diameter, or 10 mm or less post-cholecystectomy. Pancreas: Visualized portions of the pancreas are sonographically normal. Spleen: Spleen is normal in size and homogeneous in echotexture. Kidneys: Kidneys are normal in size and echotexture. Right kidney measures 10.6 cm long; left kidney measures 13 cm long. No hydronephrosis or nephrolithiasis. No solid masses. Aorta: Visualized aorta is normal in caliber at less than 3 cm. Iliacs: Proximal common iliac arteries are normal in caliber at less than 2.5 cm. IVC: Intrahepatic inferior vena cava is patent. Miscellaneous: No free abdominal fluid. IMPRESSION: The gallbladder is filled with stones and demonstrates an edematous, thickened gallbladder wall. Furthermore, the sonographic Lunsford sign is positive. Cholecystitis is suspected. Please correlate with physical examination findings, patient presentation, and laboratory values. Surgical consultation is recommended. Note: Findings and recommendations discussed by telephone with Dr. Rodriguez at 4:30 PM [place] time on January 05, 2020. Dictated by: Celso Casarez M.D. on 01/05/2020 at 16:24 Transcribed by: CAROLINE on 01/05/2020 at 16:29 Approved by: Celso Casarez M.D. on 01/05/2020 at 16:31
== END ==
PROVIDERS: PCP Family Medicine; Referring Provider Family Medicine; Visit Provider Family Medicine
DX: R10.11 Right upper quadrant pain (principal); K80.20 Calculus of gallbladder without cholecystitis without obstruction
CPT/HCPCS: 76700

== ENCOUNTER → 2020-01-16 16:27 | Outpatient (CLI) | payer OTHER, MEDICAID, SELFPAY ==
[2020-01-17 04:11] LABS: COVID19 Sendout Not Detected (Not Detect)
== END ==
PROVIDERS: PCP Family Medicine; Visit Provider Physician Assistant
DX: Z01.812 Encounter for preprocedural laboratory examination (principal)
CPT/HCPCS: 87635

== ENCOUNTER 2020-01-19 13:07 | Day surgery (SDC) | payer OTHER, MEDICAID, SELFPAY ==
[2020-01-16 10:13] VITALS: BMI 39.1
[2020-01-19] VITALS (13 sets, daily range): BP systolic 114–144; BP diastolic 64–86; PULSE 83–109; RESP 9–98; TEMP 36.3–37.2; O2SAT 14–99; BMI 38.8
--- NOTE | 2020-01-19 | PATH_ITS ---
[facility] Accession Number: [id number] . 01 Material submitted: . gallbladder - GALLBLADDER . 02 Diagnosis: Gallbladder, Cholecystectomy: Chronic cholecystitis with choleithiasis. Negative for dysplasia and malignancy. [facility] 01/23/2020 1211 Local . 02 Electronically signed: . Elizabeth Phillip MD, Pathologist NPI- [id number] . 01 Gross description: . GALLBLADDER: Received in formalin is an unopened gallbladder 6.5 cm in length and 2.3 cm in maximum fundic diameter. The non-hepatic serosa is smooth and shiny. The lumen contains green bile and multiple yellow 0.2 CM stones. The mucosa is finely trebecular. The wall is 0.1 cm thick. Gerontology Aide sections are submitted in 2 cassettes. /[facility] 01/20/2020 0937 Local . 02 Pathologist provided ICD-10: K80.60 . 02 CPT . 126222 Performed at: 01 [facility] [address], [place], [place] [id number] MD Wilmer Garcia MD Phone: [phone] Performed at: 02 [facility] [address] [place], [place] [id number] MD Elizabeth Phillip MD Phone: [phone]
[2020-01-19] MEDS: LACTATED RINGERS 1,000 ML 100 ML IV ×2 (13:44→15:36)
--- NOTE | 2020-01-19 14:09 | PM.PREOP ---
Pre-operative Note COVID-19 COVID-19 status: Negative Result date/Date tested (Pos, Neg/Pending): 01/17/20 Interval Note History & Physical reviewed/Exam performed by Physician: Yes Changes to H&P: No
[2020-01-19] MEDS: PIPERACILLIN-TAZO 3.375 GM/50 ML FROZ.PIGGY IV (14:40)
--- NOTE | 2020-01-19 15:07 | SUR.OPER ---
Supine on padded OR bed, head on pillow, arms secured on padded arm boards at <90 degrees abduction, legs uncrossed, safety belt at thigh, tape over blanket over lower legs.
[2020-01-19] MEDS: BUPIVACAINE 0.25% W/ EPI 30 ML VIAL 60 ML INJ (15:24)
--- NOTE | 2020-01-19 16:28 | P.OP_ITS ---
Operative Date/Time/Diagnoses Date of procedure: 01/19/20 Time of procedure: 16:28 Pre-op diagnosis: Acute on chronic cholecystitis, biliary colic, gall stones Post-op diagnosis: same Procedure & Clinicians Procedure: Laparoscopic cholecystectomy Same procedure as scheduled: Yes Indications: 24-year-old woman with severe acute on chronic biliary colic. Surgeon: Lori Schilling Click Yes if Unassisted: Yes Anesthesia Type: General Operative Notes Findings: Acute on chronic cholecystitis; moderate hypervascular inflammatory tissue; good critical view; no palpable stones in the cystic duct Specimen(s): other (gall bladder) Estimated Blood Loss (mL): 10 Blood products transfused: none Procedure in detail: The patient was brought into the operating room and placed supine on the OR table. Sequential compression devices were placed on both legs and turned on. Appropriate perioperative antibiotics were given prior to the start of surgery. General anesthesia was induced the patient was intubated. The abdomen was prepped and draped in sterile fashion. Surgical time-out was conducted. Local anesthetic was injected under the skin just superior to the umbilicus and a 5 mm vertical incision was made at this site. The umbilical stalk was grasped with a April and elevated. A Veress needle was passed through the fascia into proper position. The position was tested with a saline drop test which was appropriate for intra-abdominal Veress needle placement. The abdomen was then insufflated in the usual fashion. Once insufflated to 15 mm Hg the Veress needle was removed and a 5 mm optical trocar was placed under direct vision using a 5 mm 30 degree scope. Once the camera was inside the abdomen I took a look around. There was no injury from port placement. Two additional ports were placed in a similar fashion in the right upper quadrant and a 10 mm port was placed in the epigastrium. Through the 2 lateral ports the gallbladder was grasped and elevated and the infundibulum was retracted laterally to the patient's right. This exposed the gallbladder hilum and allowed for dissection of the cystic duct and cystic artery. There was quite a bit of dense scar tissue throughout the gallbladder hilum. This required tedious careful dissection to avoid injury to the bile ducts. There were numerous small arterial branches which had to be clipped individually. Once the cystic duct and artery were completely dissected out and I was able to see liver behind and between both structures without any other structures in the way, giving us the critical view of safety. At this point I doubly clipped both structures on the patient's side and put a single clip on the gallbladder side of both the cystic duct and artery. Both structures were then divided with laparoscopic [place]. Following this the gallbladder was gradually dissected free from the liver. There was quite a bit of hypervascularity of the scar tissue between the gallbladder and the liver. Several small vessels had to be controlled with surgical clips and cautery. Once the gallbladder was entirely freed, it was placed inside an Endo-Catch bag and removed through the epigastric port site. I [did not] have to enlarge the epigastric site in order to get the gallbladder out. Once it was out and passed off to the back table I then took another look inside the abdomen. I suctioned clean any remaining blood or fluid on the lateral side of the liver and in the subhepatic space. There was no active bleeding or leaking of bile from the gallbladder fossa or from the clipped stumps of the cystic duct and artery. The Ronal Leela device was then used to close the epigastric port site using a trans fascial 0 Vicryl suture. At this point the insufflation was removed from the abdomen, local anesthetic was injected in each of the port sites, 3 O Vicryl was used in the subcutaneous layers, and 4 Monocryl in the skin. The remaining port sites were closed with 4 Monocryl in the skin. Each port site was sealed with Dermabond and covered with Steri-Strips. Local anesthetic was given at each of the port sites and in the fascia for a total of 60 mL of 0.25% Marcaine with epi. This concluded the procedure. At this point the needle sponge and instrument counts were correct. The gallbladder was passed off the table for pathology. Patient was awakened from anesthesia and extubated. She was transferred to the postanesthesia care unit in stable condition. Complications: none Post-operative Condition: stable Disposition: PACU
[2020-01-19] MEDS: fentaNYL 100 MCG/2 ML INJ IV (16:43)
[2020-01-19] MEDS: OXYCODONE/ACETAMINOPHEN 5/325 TABLET 1 TAB PO (16:58)
[2020-01-19] MEDS: diphenhydrAMINE 50 MG/ML VIAL 25 MG IV (17:16)
--- NOTE | 2020-01-19 17:33 | SUR.PHASEII ---
Addendum entered by Jovany Posey R.N. 01/19/20 18:01: Pt discharged to main entrance via wc in stable condition. Discharge instruction reviewed with mother. Original Note: Pt readied for discharge. Light snack in order to take oral pain medications then back to clears. No N/V reported by pt. Reports itching so administered benadryl 25mg IVP per MD verbal orders.
== END 2020-01-19 18:02 | disposition home or self-care (01) ==
PROVIDERS: PCP Family Medicine; Referring Provider Surgery; Visit Provider Surgery
PROC: 0FT44ZZ Resection of Gallbladder, Percutaneous Endoscopic Approach (ICD-10-PCS; CPT 47562; principal; 2020-01-19 14:15)
DX: K80.00 Calculus of gallbladder with acute cholecystitis without obstruction (principal); E66.9 Obesity, unspecified
CPT/HCPCS: 47562; J1100; J1200; J1885; J2405; J2543; J2704; J3010

== ENCOUNTER 2020-01-29 11:06 | Emergency (ER) | payer OTHER, MEDICAID, SELFPAY ==
--- NOTE | 2020-01-29 11:08 | DI.US.S_ITS ---
PROCEDURE: US ABDOMEN LIMITED INDICATIONS: RUQ PAIN,EVALUATE FOR RETAINED STONE TECHNIQUE: Real-time focused scanning was performed of the abdomen, with image documentation. COMPARISON: [facility], , US ABDOMEN COMPLETE, 01/05/2020, 15:47. FINDINGS: A limited right upper quadrant sonogram was performed. The gallbladder is surgically absent. The imaged portions of the liver appear to be within normal limits, but are not well characterized. No fluid collections are seen within the gallbladder fossa. Please note that the right kidney, pancreas, abdominal aorta, and inferior vena cava were either not imaged or not adequately imaged. There is intrahepatic and extrahepatic biliary dilatation. The common bile duct measures 11 mm in diameter. On the previous exam, the common bile duct measured up to 4 mm in diameter. IMPRESSION: 1. Interval cholecystectomy. No fluid collections are seen within the gallbladder bed 2. Moderate interval increase in size of the common bile duct. If there is clinical concern for choledocholithiasis, please consider MRCP for further evaluation. Dictated by: Link Lima M.D. on 01/29/2020 at 11:07 Approved by: Link Lima M.D. on 01/29/2020 at 11:09
[2020-01-29 11:23] VITALS: BP 143/88; PULSE 65; RESP 16; TEMP 35.7; O2SAT 98; BMI 36.1
[2020-01-29 11:34] LABS: Add Manual Diff / Slide Review NO; Basophils Absolute Auto 0 /uL (0-100); Basophils Percent Auto 0.4 % (0-2); Eosinophils Absolute Auto 100 /uL (0-450); Eosinophils Percent Auto 1.2 % (2-4); Hematocrit 41.9 % (36-46); Hemoglobin 14.3 g/dL (12.0-16.0); Lymphocytes Absolute Auto 1900 /uL (1100-4500); Lymphocytes Percent Auto 25.3 % (25-40); Mean Corpuscular HGB Conc 34.1 % (30-36); Mean Corpuscular Hemoglobin 28.3 PG (26-34); Mean Corpuscular Volume 83.1 fL (80-100); Monocytes Absolute Auto 800 /uL (0-900); Neutrophils Absolute Auto 4700 /uL (1500-7000); Neutrophils Percent Auto 62.1 % (50-75); Platelet Count 272 X10^3/uL (150-400); Red Blood Cell Count 5.04 X10^6/uL (4.0-5.2); Red Cell Distribution Width 13.2 % (11.6-14.8); White Blood Cell Count 7.6 X10^3/uL (4.5-11.0)
--- NOTE | 2020-01-29 11:35 | ED_ITS ---
HPI - General Adult General Chief complaint: Abdominal Pain Stated complaint: SURGERY COMPLICATIONS Time Seen by Provider: 01/29/20 11:07 Source: patient Mode of arrival: Ambulatory Limitations: no limitations History of Present Illness HPI narrative: 24-year-old female underwent a laparoscopic cholecystectomy appro ximately 10 days ago. This is done for acute cholecystitis/cholelithiasis. Patient is 3 months . After surgery patient was recovering well until 3 days ago when she states that she had another ?gallbladder attack? she states that was the same symptoms that she had prior to her surgery. She states that the spike in the pain has since resolved however she continues to have abdominal pain. Some nausea. No vomiting. Has had some dark colored urine. Has not had a bowel movement in almost 1 week. No skin changes. Had subjective fevers last evening. Related Data Previous Rx's Medication Instructions Recorded nystatin 100,000 unit/gram topical 1 applictn TOP BID #15 gram 12/26/19 cream oxycodone 5 mg tablet 5 mg PO DAILY PRN #10 tab 12/26/19 oxycodone 5 mg PO Q4H PRN #30 tab 01/19/20 Allergies Allergy/AdvReac Type Severity Reaction Status Date / Time adhesive Allergy Mild Hives Verified 01/29/20 11:26 Latex, Natural Rubber Allergy Mild Swelling, Verified 01/29/20 11:26 Localized Blisters Review of Systems Constitutional Constitutional: Reports fever(s) Cardiovascular Cardiovascular: Denies chest pain and Denies dyspnea Respiratory Respiratory: Denies dyspnea Gastrointestinal Gastrointestinal: Reports abdominal pain, Reports nausea and Denies vomiting Comments: Constipation Genitourinary Comments: Dark-colored urine Musculoskeletal Musculoskeletal: Denies myalgias and Denies arthralgias Integumentary/Breasts Skin/Breast: Denies rash Neurologic Neurologic: Denies behavioral changes Psychiatric Psychiatric: Denies behavioral changes Hematologic/Lymphatic Hematologic/Lymphatic: Denies easy bleeding and Denies easy bruising Patient History Medical History Anxiety (Chronic) Bipolar disorder (Chronic) Depression (Chronic) pericardial effusion (Inactive) Spontaneous vaginal delivery (Acute) Two vessel umbilical cord in pab[place] , antepartum (Inactive) Uterine inversion (Inactive) Social History household members: significant other Smoking Status: Former smoker alcohol intake: former substance use type: marijuana Smoking Status: Former smoker alcohol intake frequency: holidays/special occasions only Substance Use Type: marijuana and prescription drug Exam Initial Vital Signs Initial Vital Signs: Vital Signs Temperature 96.3 F L 01/29/20 11:23 Pulse Rate 65 01/29/20 11:23 Respiratory Rate 16 01/29/20 11:23 Blood Pressure 143/88 H 01/29/20 11:23 Pulse Oximetry 98 01/29/20 11:23 Const General: cooperative and comfortable HENMT Head: normal to inspection and normocephalic Resp Effort & Inspection: normal respiratory effort Auscultation: clear to auscultation bilaterally Cardio Rate: regular rate Rhythm: regular rhythm GI Inspection: non-distended Palpation: soft, No firm and tender (Diffusely tender, negative Lunsford sign) Back/Spine/Pelvis Back: CVA tenderness right Skin Lesions: no lesions Rashes: no rashes Other: Well-healed surgical scars consistent with stated surgical history Neuro General: alert, awake and oriented x3 Cognition: normal cognition Speech: speech normal Extrem General: normal to inspection and capillary refill normal Psych Appearance: grossly normal and well kempt Course Orders Ordered: ED Orders 01/29/20 11:08 US abdomen limited Stat 01/29/20 11:20 Basic Metabolic Panel Stat Complete Blood Count AUTO DIFF Stat Hepatic (Liver) Panel Stat Lipase Stat Test Serum,Qual Stat Discontinued Medications Morphine Sulfate (Morphine) 4 mg IV NOW ONE Stop: 01/29/20 11:58 Last Admin: 01/29/20 12:34 Dose: 4 mg Documented by: CHARISSE Ondansetron HCl (Zofran) 4 mg IV NOW ONE Stop: 01/29/20 11:58 Last Admin: 01/29/20 12:34 Dose: 4 mg Documented by: CHARISSE Ondansetron HCl (Zofran) 4 mg IV NOW ONE Stop: 01/29/20 14:00 Last Admin: 01/29/20 14:10 Dose: 4 mg Documented by: CHARISSE Vital Signs Vital signs: Vital Signs - 8 hr 01/29/20 11:23 Temperature 96.3 F L Pulse Rate 65 Respiratory Rate 16 Blood Pressure 143/88 H Pulse Oximetry 98 Medical Decision Making Medical Records Medical records reviewed: Yes I reviewed the patient's medical records. Lab Data Lab results reviewed: Yes I reviewed the patient's lab results. Result diagrams: 01/29/20 11:20 01/29/20 11:20 Labs: Lab Results 01/29/20 01/29/20 01/29/20 Range/Units 11:20 11:20 11:20 WBC 7.6 (4.5-11.0) X10^3/uL RBC 5.04 (4.0-5.2) X10^6/uL Hgb 14.3 (12.0-16.0) g/dL Hct 41.9 (36-46) % MCV 83.1 (80-100) fL MCH 28.3 (26-34) PG MCHC 34.1 (30-36) % RDW 13.2 (11.6-14.8) % Plt Count 272 (150-400) X10^3/uL Neut % (Auto) 62.1 (50-75) % Lymph % (Auto) 25.3 (25-40) % [place] % (Auto) 11.0 (3-14) % Eos % (Auto) 1.2 L (2-4) % Baso % (Auto) 0.4 (0-2) % Neut # (Auto) 4700 (9746-1022) /uL Lymph # (Auto) 1900 (3136-9547) /uL [place] # (Auto) 800 (0-900) /uL Eos # (Auto) 100 (0-450) /uL Baso # (Auto) 0 (0-100) /uL Sodium 140 (137-145) mmol/L Potassium 3.7 (3.4-5.1) mmol/L Chloride 103 (98-107) mmol/L Carbon Dioxide 23 (22-32) mmol/L BUN 8 (7-17) mg/dL Creatinine 0.66 (0.52-1.04) mg/dL Estimated GFR > 60.0 (>60) mL/min BUN/Creatinine Ratio 12.1 (6-22) Glucose 97 (70-100) mg/dL Calcium 9.5 (8.4-10.2) mg/dL Total Bilirubin 6.0 H (0.2-1.3) mg/dL Conjugated Bilirubin 3.6 H (0.0-0.3) md/dL Unconjugated Bilirubin 1.1 (0.0-1.1) mg/dL AST 1378 H (14-36) IU/L ALT 1740 H (<35) IU/L Alkaline Phosphatase 320 H (38-126) U/L Total Protein 7.6 (6.3-8.2) g/dL Albumin 4.5 (3.5-5.0) g/dL Globulin 3.1 (1.7-4.1) g/dL Albumin/Globulin Ratio 1.5 (1.0-2.8) Lipase 51 (23-300) U/L Serum , Qual (Negative) COVID-19 PCR (Negative) 01/29/20 01/29/20 Range/Units 11:20 13:31 WBC (4.5-11.0) X10^3/uL RBC (4.0-5.2) X10^6/uL Hgb (12.0-16.0) g/dL Hct (36-46) % MCV (80-100) fL MCH (26-34) PG MCHC (30-36) % RDW (11.6-14.8) % Plt Count (150-400) X10^3/uL Neut % (Auto) (50-75) % Lymph % (Auto) (25-40) % [place] % (Auto) (3-14) % Eos % (Auto) (2-4) % Baso % (Auto) (0-2) % Neut # (Auto) (5428-9803) /uL Lymph # (Auto) (2110-3444) /uL [place] # (Auto) (0-900) /uL Eos # (Auto) (0-450) /uL Baso # (Auto) (0-100) /uL Sodium (137-145) mmol/L Potassium (3.4-5.1) mmol/L Chloride (98-107) mmol/L Carbon Dioxide (22-32) mmol/L BUN (7-17) mg/dL Creatinine (0.52-1.04) mg/dL Estimated GFR (>60) mL/min BUN/Creatinine Ratio (6-22) Glucose (70-100) mg/dL Calcium (8.4-10.2) mg/dL Total Bilirubin (0.2-1.3) mg/dL Conjugated Bilirubin (0.0-0.3) md/dL Unconjugated Bilirubin (0.0-1.1) mg/dL AST (14-36) IU/L ALT (<35) IU/L Alkaline Phosphatase (38-126) U/L Total Protein (6.3-8.2) g/dL Albumin (3.5-5.0) g/dL Globulin (1.7-4.1) g/dL Albumin/Globulin Ratio (1.0-2.8) Lipase (23-300) U/L Serum , Qual Negative (Negative) COVID-19 PCR Negative (Negative) Imaging Data US - abdomen: Radiologist's Impression: [address] [id number] Ultrasound Report Signed Patient: Chloé Ortiz LMR#: [id number] : 1995Acct:[id number] Age/Sex: 24 FDate of Service: 01/29/20 Loc: ED Accession Number: [id number] Procedure: US abdomen limited Ordering Provider: Maurice Gonsalez D.O. PROCEDURE: US ABDOMEN LIMITED INDICATIONS: RUQ PAIN,EVALUATE FOR RETAINED STONE TECHNIQUE: Real-time focused scanning was performed of the abdomen, with image documentation. COMPARISON: [facility], , US ABDOMEN COMPLETE, 01/05/2020, 15:47. FINDINGS: A limited right upper quadrant sonogram was performed. The gallbladder is surgically absent. The imaged portions of the liver appear to be within normal limits, but are not well characterized. No fluid collections are seen within the gallbladder fossa. Please note that the right kidney, pancreas, abdominal aorta, and inferior vena cava were either not imaged or not adequately imaged. There is intrahepatic and extrahepatic biliary dilatation. The common bile duct measures 11 mm in diameter. On the previous exam, the common bile duct measured up to 4 mm in diameter. IMPRESSION: 1. Interval cholecystectomy. No fluid collections are seen within the gallbladder bed 2. Moderate interval increase in size of the common bile duct. If there is clinical concern for choledocholithiasis, please consider MRCP for further evaluation. Dictated by: Link Lima M.D. on 01/29/2020 at 11:07 Approved by: Link Lima M.D. on 01/29/2020 at 11:09 [facility] Narrative Medical decision making narrative: Laparoscopic cholecystectomy 10 days ago. Three days ago had another ?gallbladder attack? patient is afebrile. Has elevated bilirubin and LFTs. Normal lipase. Concern for retained stone. Disc ussed the case with Dr. Schilling who was the operative surgeon who agrees patient most likely needs ERCP. Discussed the case with Dr. Cornell with GI at [facility] who also agrees and accepts the patient. I did discuss the transfer with the patient in the indications for transfer. She expressed understanding. Patient is stable for transport. Patient's COVID-19 test performed on 01/29/20 was negative. Discharge Plan Departure Patient Disposition: [facility] Clinical Impression: Choledocholithiasis Post-operative complication Qualifiers: Surgical complication system/body Area: [id number] Prescriptions: No Action nystatin 100,000 unit/gram cream 1 applictn TOP BID Qty: 15 RF: 0 oxycodone 5 mg tablet 5 mg PO DAILY PRN (Reason: pain) Qty: 10 RF: 0 oxycodone 5 mg tablet 5 mg PO Q4H PRN (Reason: post operative pain) Qty: 30 RF: 0 Referrals: Mary Rodriguez DO [Primary Care Provider] -
[2020-01-29 11:39] LABS: Albumin 4.5 g/dL (3.5-5.0); Albumin Globulin Ratio 1.5 (1.0-2.8); Alkaline Phosphatase 320 U/L (38-126); BUN Creatinine Ratio 12.1 (6-22); Bilirubin Conjugated 3.6 md/dL (0.0-0.3); Bilirubin Unconjugated 1.1 mg/dL (0.0-1.1); Blood Urea Nitrogen 8 mg/dL (7-17); Calcium 9.5 mg/dL (8.4-10.2); Carbon Dioxide 23 mmol/L (22-32); Chloride 103 mmol/L (98-107); Estimated Glomerular Filt Rate > 60.0 mL/min (>60); Globulin 3.1 g/dL (1.7-4.1); Glucose 97 mg/dL (70-100); HEMOLYSIS < 15 (0-50); Lipase 51 U/L (23-300); Potassium 3.7 mmol/L (3.4-5.1); Sodium 140 mmol/L (137-145); Total Protein 7.6 g/dL (6.3-8.2)
[2020-01-29 11:47] LABS: Alanine Aminotransferase 1740 IU/L (<35); Aspartate Aminotransferase 1378 IU/L (14-36); Pregnancy Test Serum,Qual Negative (Negative)
[2020-01-29] MEDS: ONDANSETRON 4 MG/2 ML INJ IV ×2 (12:34→14:10)
[2020-01-29] MEDS: MORPHINE 4 MG/ML INJ IV ×2 (12:34→14:55)
[2020-01-29 14:34] LABS: COVID19 -Nasal RAPID Negative (Negative)
[2020-01-29 15:15] VITALS: BP 138/78; PULSE 86; RESP 16; O2SAT 97
== END 2020-01-29 15:17 | disposition short-term general hospital (02) ==
PROVIDERS: Emergency Provider Emergency Medicine; PCP Family Medicine
DX: K80.50 Calculus of bile duct without cholangitis or cholecystitis without obstruction (principal); T81.9XXA Unspecified complication of procedure, initial encounter
CPT/HCPCS: 36415; 76705; 80048; 80076; 83690; 84703; 85025; 87635; 96374; 96375; 96376; 99284; J2270; J2405

== ENCOUNTER → 2020-03-12 16:26 | Outpatient (CLI) | payer OTHER, MEDICAID, SELFPAY ==
[2020-03-12 20:07] LABS: Urine N gonorrhoeae NOT DETECTED
[2020-03-12 20:51] LABS: Urine Chlamydia NOT DETECTED
== END ==
PROVIDERS: PCP Family Medicine; Visit Provider Family Medicine
DX: Z11.3 Encounter for screening for infections with a predominantly sexual mode of transmission (principal); Z11.8 Encounter for screening for other infectious and parasitic diseases; Z30.430 Encounter for insertion of intrauterine contraceptive device
CPT/HCPCS: 87491; 87591

== ENCOUNTER 2022-01-29 10:11 | Emergency (ER) | payer OTHER, MEDICAID, SELFPAY ==
[2022-01-29 10:15] VITALS: BP 129/76; PULSE 95; RESP 15; TEMP 36.7; O2SAT 99; BMI 44.2
[2022-01-29 10:45] LABS: RBC Urine None Seen (0-5/HPF); Renal Epithelial Cells Urine 1-5/HPF (0-1/HPF); Squamous Epithelial Cell Urine 1-5 /HPF (0-5/HPF); WBC Urine 1-5/HPF (0-5/HPF)
[2022-01-29 10:46] LABS: Amorphous Sediment Urine 3+; Bacteria Urine Many (>30); Culture Indicated Urine Cult Not Indicated
--- NOTE | 2022-01-29 11:28 | ED_ITS ---
HPI - Female Genitourinary General Chief complaint: Urogenital-Female Stated complaint: possible pinched nerve/kidney infection Time Seen by Provider: 01/29/22 11:25 Source: patient Mode of arrival: Ambulatory Limitations: no limitations History of Present Illness HPI Narrative: This is a 26-year-old female who comes with complaint of back pain. Patient states she was having some mild discomfort particular lifting her left leg when last night she was lying in bed curled up doing homework and coughed causing significant spasm and pain in her lower thoracic lumbar region. Since then she has continued to have pain. She has some pain with movement of her right upper extremity as well as her left right lower extremities. Patient states it improves with rest. She has tried Tylenol ibuprofen without resolution. She has had mild symptoms in the past but not to this extent. No other traumatic injuries that she is aware of. No fevers or chills. No chest pain or shortness of breath. No nausea. She had 1 episode of vomiting when her pain was intense. No urinary incontinence or fecal incontinence. She has had a sensation of dysuria at the end of urination but feels like she empties her bladder com pletely, no urgency or frequency. She is otherwise healthy. She has it 2-year-old child, she smokes, occasional alcohol, occasional THC. Related Data Previous Rx's Medication Instructions Recorded nystatin 100,000 unit/gram topical 1 applictn TOP BID #30 gram 05/08/20 cream cyclobenzaprine 10 mg tablet 10 mg PO Q8H PRN #20 tab 01/29/22 Allergies Allergy/AdvReac Type Severity Reaction Status Date / Time adhesive Allergy Mild Hives Verified 01/29/22 10:15 Latex, Natural Rubber Allergy Mild Swelling, Verified 01/29/22 10:15 Localized Blisters Review of Systems Review of Systems ROS Unobtainable: All systems reviewed & are unremarkable except as noted in HPI and below Patient History Medical History Anxiety Bipolar disorder Depression pericardial effusion Spontaneous vaginal delivery Two vessel umbilical cord in [place] , antepartum Uterine inversion Surgical History H/O dilation and curettage History of ERCP History of tonsillectomy Status post cholecystectomy Family History Mother Ovarian cancer alcohol intake frequency: holidays/special occasions only Substance Use Type: marijuana Exam Narrative Exam Narrative: GENERAL: Alert and oriented x three, female in [id number] distress. HEENT: Head normocephalic, atraumatic, EOMI, pupils reactive, face symmetric, moist mucous membranes NECK: Supple, full range of motion CARDIOVASCULAR: Regular rate and rhythm without murmurs, rubs or gallops. RESPIRATORY: Breath sounds equal bilaterally, no wheezes rales or rhonchi. ABDOMEN: Soft, nontender. Normoactive bowel sounds all 4 quadrants. No guarding or rebound, rigidity, no mass : No CVA tenderness BACK: No cervical, thoracic or lumbar vertebral point tenderness. Patient does have some generalized tenderness in the lower lumbar region, and some muscle tightness. Patient has normal range of motion. 5/5 muscle strength bilateral upper and lower extremities. No saddle anesthesia, DTRs are 2/4 and lower extremities. Dorsalis pedis and tibialis pulses are 2+ and lower extremities. Sensation is intact in the lower extremities. EXTREMITIES: Normal range of motion, no clubbing or edema. Neurovascularly intact NEUROLOGICAL: Cranial nerves II through XII grossly intact. Moving all extremities SKIN: Warm, dry, no petechiae, no rashes or lesions. Initial Vital Signs Initial Vital Signs: Vital Signs Temperature 98.1 F 01/29/22 10:15 Pulse Rate 95 H 01/29/22 10:15 Respiratory Rate 15 01/29/22 10:15 Blood Pressure 129/76 01/29/22 10:15 Pulse Oximetry 99 01/29/22 10:15 Course Orders Ordered: ED Orders 01/29/22 10:20 Urine Culture Stat 01/29/22 10:33 Urine Microscopic Stat Discontinued Medications Ketorolac Tromethamine (Ketorolac 30 Mg/Ml Vial) 30 mg IV NOW ONE Stop: 01/29/22 11:39 Last Admin: 01/29/22 11:51 Dose: Not Given Documented by: MYNOR Ketorolac Tromethamine (Ketorolac 30 Mg/Ml Vial) 30 mg IM NOW ONE Stop: 01/29/22 11:45 Last Admin: 01/29/22 11:52 Dose: 30 mg Documented by: MYNOR Vital Signs Vital signs: Vital Signs - 8 hr 05/18/22 12:05 Temperature 98.5 F Pulse Rate 84 Respiratory Rate 14 Blood Pressure 125/75 Pulse Oximetry 99 MDM - Female Genitourinary Lab Data Labs: Lab Results 01/29/22 Range/Units 10:33 Urine RBC None seen (0-5/HPF) Urine WBC 1-5/hpf (0-5/HPF) Ur Squamous Epith Cells 1-5 /hpf (0-5/HPF) Ur Renal Epithelial Cell 1-5/hpf H (0-1/HPF) Amorphous Sediment 3+ Urine Bacteria Many (>30) H (None) Ur Culture Indicated? Cult not indicated Point of Care Testing Test Results Negative Urine Dip Urine Specific [place] 1.030 Bedside Urine pH 6.0 Bedside Urine Protein +++ 300 Bedside Urine Urobilinogen +/- 1mg Bedside Urine Nitrite - Negative Bedside Urine Leukocytes - Negative Esterase [facility] Narrative Medical decision making narrative: This is a 26-year-old female with generalized tenderness but no localized vertebral tenderness. Patient does not have any current red flag symptoms. She has normal muscle strength. Plan for muscle relaxer, Tylenol ibuprofen as needed pain rest and conservative management plan for follow-up with primary care if persisting and discussed red flag symptoms and return for emergent evaluation into the ED. Discharge Plan Departure Patient Disposition: Home Clinical Impression: Back pain Instructions: DI for Back Pain With Sciatica Activity Restrictions/Additional Instructions: Follow-up with primary care if symptoms are persisting beyond 5-7 days. You may continue with ibuprofen up to 800 mg every 8 hours and/or Tylenol up to a 1000 mg every 6 hours as needed for pain. If in adequate you may take muscle relaxer 1 tablet every 8 hours as needed. This medication can make you sleepy do not drive, perform hazardous activities or make any major decisions while taking it. Prescription sent to [facility] in [place]. Please return for new fevers, rapidly worsening symptoms, weakness, loss of sensation, and bili lift or move your legs, arms, loss of bowel or bladder control or other new or concerning symptoms. Prescriptions: New cyclobenzaprine 10 mg tablet 10 mg PO Q8H PRN (Reason: muscle spasm) Qty: 20 0RF No Action nystatin 100,000 unit/gram cream 1 applictn TOP BID Qty: 30 1RF Label Comments: hasn't used in over a month Stand Alone Forms: Work Release Note
[2022-01-29] MEDS: KETOROLAC 30 MG/ML VIAL IM (11:52)
[2022-01-29 12:05] VITALS: BP 125/75; PULSE 84; RESP 14; TEMP 36.9; O2SAT 99
== END 2022-01-29 12:08 | disposition home or self-care (01) ==
PROVIDERS: Emergency Provider Emergency Medicine
DX: M54.50 Low back pain, unspecified (principal); M54.6 Pain in thoracic spine
CPT/HCPCS: 81003; 81015; 81025; 87086; 96372; 99283; J1885

== ENCOUNTER → 2022-10-01 13:09 | Outpatient (CLI) | payer OTHER, MEDICAID, SELFPAY | PROVIDERS: PCP Family Medicine; Visit Provider Family Medicine | DX: Z34.81 Encounter for supervision of other normal pregnancy, first trimester (principal) | CPT/HCPCS: 87077; 87086; 87186 ==

== ENCOUNTER → 2022-10-14 16:14 | Outpatient (CLI) | payer OTHER, MEDICAID, SELFPAY ==
[2022-10-14 18:43] LABS: Urine N gonorrhoeae NOT DETECTED
[2022-10-14 19:06] LABS: Urine Chlamydia NOT DETECTED
== END ==
PROVIDERS: PCP Family Medicine; Visit Provider Physician Assistant Medical
DX: N89.8 Other specified noninflammatory disorders of vagina (principal)
CPT/HCPCS: 87077; 87086; 87186; 87210; 87491; 87591

== ENCOUNTER 2022-10-21 07:15 | Emergency (ER) | payer OTHER, MEDICAID, SELFPAY ==
[2022-10-21 07:21] VITALS: BP 121/60; O2SAT 98
--- NOTE | 2022-10-21 07:21 | ED.ABDPAIN ---
HPI - Abdominal Pain General Chief Complaint: OB/Uterine Contractions Stated Complaint: 10 weeks and bleeding Time Seen by Provider: 10/21/22 07:20 History of Present Illness HPI narrative: 27-year-old female presenting with vaginal bleeding. Patient reports developing vaginal blood and small clots with wiping this morning, this is less than a normal period for the patient, this is patient's 3rd . First was complicated by miscarriage at approximately 8 weeks. Second was uncomplicated, patient delivered at 40 weeks. Patient estimates that she is at 10 weeks currently. Patient reported mild cramping type pain yesterday and today, this is not consistent with contraction type pain per the patient. Related Data Home Medications Medication Instructions Recorded Confirmed prenat.vits,dayton,noo-pzmw-fymiv 1 tab PO DAILY 09/01/22 10/01/22 Previous Rx's Medication Instructions Recorded amoxicillin 875 mg-potassium 1 tab PO BID uti 7 days #14 tabs 10/16/22 clavulanate 125 mg tablet Allergies Allergy/AdvReac Type Severity Reaction Status Date / Time adhesive Allergy Mild Hives Verified 10/01/22 12:06 Latex, Natural Rubber Allergy Mild Swelling, Verified 10/01/22 12:06 Localized Blisters Patient History Medical History ADHD Anxiety Bipolar disorder Depression pericardial effusion Spontaneous vaginal delivery Two vessel umbilical cord in [place] , antepartum Uterine inversion Surgical History H/O dilation and curettage History of ERCP History of tonsillectomy Status post cholecystectomy Family History Mother Ovarian cancer Pre-diabetes Grandfather Colon cancer Diabetes mellitus Grandmother Diabetes mellitus Father Diabetes mellitus Family/Other Diabetes mellitus Social History marital status: unmarried,single number of children: 1 household members: significant other lives independently: Yes caregiver/support person: Yes housing: other (mobile home) pets and animals: No education level: high school occupational status: employed (works in a [employer]) current occupational exposures/hazards: No special angelica needs: No travel history: over 6 months ago seatbelt use: always water heater temp set < 120 deg: Yes working smoke detector in home: Yes fire extinguisher in home: Yes carbon monox detector in home: Yes firearms in home: No do you feel safe at home: Yes Smoking Status: Current every day smoker Tobacco: How many years used: 13 (off and on, sometimes quit for years at a time) second hand exposure: No alcohol intake: former substance use type: marijuana during the past year weight has: increased > 10 lbs well-balanced diet: about half the time daily servings fruits/ve-4 caffeine: Yes Type(s) of exercise: none Smoking Status: Current every day smoker alcohol intake frequency: holidays/special occasions only Substance Use Type: marijuana Exam Narrative Exam Narrative: Vitals reviewed. Nursing note reviewed Constitutional: interactive HENT: Moist mucous membranes EYES: No scleral icterus NECK: no masses CV: Well perfused peripherally, no cyanosis present PULM: Unlabored respirations, symmetric chest rise ABD: Non-distended, no abdominal tenderness to palpation Pelvic: Scant blood in the vaginal vault, no active bleeding, no clots MS: No gross deformities, no asymmetric edema noted SKIN: Warm and dry. PSYCH: Appropriate affect NEURO: Follows simple commands, moves extremities, interactive with exam Initial Vital Signs Initial Vital Signs: Vital Signs Blood Pressure 121/60 10/21/22 07:21 Pulse Oximetry 98 10/21/22 07:21 Course Orders Ordered: ED Orders 10/21/22 07:25 US OB <= 14 weeks fetus Stat Beta HCG, Quant [HCG Quantitative /Beta subunit] Stat CBC Auto Diff [Complete Blood Count AUTO DIFF] Stat CMP [Comprehensive Metabolic Panel] Stat UA Complete [Urinalysis and Microscopic] Stat 10/21/22 07:26 ABO RH Type Stat Vital Signs Vital signs: Vital Signs - 8 hr 10/21/22 07:28 Temperature 98.5 F Pulse Rate 88 Respiratory Rate 20 Blood Pressure 121/60 Pulse Oximetry 99 Oxygen Delivery Method Room Air MDM - Abdominal Pain Lab Data 10/21/22 07:30 10/21/22 07:30 Labs: Lab Results 10/21/22 10/21/22 10/21/22 Range/Units 07:30 07:30 07:30 WBC 9.9 (4.5-11.0) X10^3/uL RBC 4.53 (4.0-5.2) X10^6/uL Hgb 14.0 (12.0-16.0) g/dL Hct 41.2 (36-46) % MCV 90.9 (80-100) fL MCH 30.9 (26-34) PG MCHC 34.0 (30-36) % RDW 12.4 (11.6-14.8) % Plt Count 228 (150-400) X10^3/uL Neut % (Auto) 63.9 (50-75) % Lymph % (Auto) 28.6 (25-40) % [place] % (Auto) 5.5 (3-14) % Eos % (Auto) 1.1 L (2-4) % Baso % (Auto) 0.9 (0-2) % Neut # (Auto) 6300 (0036-9815) /uL Lymph # (Auto) 2800 (4760-3201) /uL [place] # (Auto) 500 (0-900) /uL Eos # (Auto) 100 (0-450) /uL Baso # (Auto) 100 (0-100) /uL Sodium 136 L (137-145) mmol/L Potassium 3.7 (3.4-5.1) mmol/L Chloride 103 (98-107) mmol/L Carbon Dioxide 22 (22-32) mmol/L BUN 8 (7-17) mg/dL Creatinine 0.38 L (0.52-1.04) mg/dL Estimated GFR > 60 (>60) mL/min BUN/Creatinine Ratio 21.1 (6-22) Glucose 88 (70-100) mg/dL Calcium 8.5 (8.4-10.2) mg/dL Total Bilirubin 0.5 (0.2-1.3) mg/dL AST 26 (14-36) IU/L ALT 26 (<35) IU/L Alkaline Phosphatase 52 (38-126) U/L Total Protein 6.7 (6.3-8.2) g/dL Albumin 3.8 (3.5-5.0) g/dL Globulin 2.9 (1.7-4.1) g/dL Albumin/Globulin Ratio 1.3 (1.0-2.8) HCG, Quant 15365 mIU/mL Blood Type O Positive MDM Narrative Medical decision making narrative: 27-year-old female presenting with vaginal bleeding in the setting of early . On presentation, vital signs notable for no significant abnormalities as above. Physical exam notable for a well-appearing 27-year-old female in no acute distress, alert, interactive, with reassuring cardiopulmonary exam, benign abdomen. Initial concern for threatened miscarriage, active miscarriage, vaginal bleeding early , acute blood loss anemia, hemorrhagic shock. Broad screening labs obtained, CBC without significant anemia or leukocytosis. OB ultrasound ordered and pending. Rh status confirmed. OB ultrasound notable for viable intrauterine at approximately 13 weeks without noted complications. Discussed findings with patient and family at bedside. Discussed possibility of early miscarriage versus nonspecific vaginal spotting in early . Patient was instructed follow up in the outpatient setting with her primary stacker tender provider, repeat quantitative hCG in the next 2-3 days. Return precautions discussed. Discharge Plan Departure Patient Disposition: Home Clinical Impression: Vaginal bleeding in Instructions: Threatened Miscarriage Activity Restrictions/Additional Instructions: Please follow up in the outpatient setting with your primary care provider and primary OB provider. You will require repeat beta-hCG testing in the next 2-3 days. Please return to the emergency department for worsening bleeding or new symptoms. Prescriptions: No Action amoxicillin-pot clavulanate 875-125 mg tablet 1 tab PO BID 7 Days Qty: 14 0RF prenat.vits,dayton,hdb-bhhw-trnam Tablet 1 tab PO DAILY Referrals: Mary Rodriguez DO [Primary Care Provider] - Stand Alone Forms: Patient Portal/API
[2022-10-21 07:28] VITALS: BP 121/60; PULSE 88; RESP 20; TEMP 36.9; O2SAT 99; BMI 40.1
[2022-10-21 07:30] VITALS: BP 115/57; PULSE 83; O2SAT 99
[2022-10-21 07:48] LABS: Add Manual Diff / Slide Review NO; Basophils Absolute Auto 100 /uL (0-100); Basophils Percent Auto 0.9 % (0-2); Eosinophils Absolute Auto 100 /uL (0-450); Eosinophils Percent Auto 1.1 % (2-4); Hematocrit 41.2 % (36-46); Lymphocytes Absolute Auto 2800 /uL (1100-4500); Lymphocytes Percent Auto 28.6 % (25-40); Mean Corpuscular Hemoglobin 30.9 PG (26-34); Mean Corpuscular Volume 90.9 fL (80-100); Monocytes Absolute Auto 500 /uL (0-900); Monocytes Percent Auto 5.5 % (3-14); Neutrophils Absolute Auto 6300 /uL (1500-7000); Neutrophils Percent Auto 63.9 % (50-75); Platelet Count 228 X10^3/uL (150-400); Red Blood Cell Count 4.53 X10^6/uL (4.0-5.2); Red Cell Distribution Width 12.4 % (11.6-14.8); White Blood Cell Count 9.9 X10^3/uL (4.5-11.0)
[2022-10-21 08:00] VITALS: BP 108/49; PULSE 83; RESP 20; O2SAT 99
--- NOTE | 2022-10-21 08:03 | DI.US.S_ITS ---
PROCEDURE: US OB <= 14 WEEKS FETUS INDICATIONS: CRAMPING, SPOTTING OUTSIDE/PRIOR DATING DATA: Last menstrual period (LMP): 07/23/2022. LMP-based estimated date of delivery (IJEOMA): 04/29/2023. First dating scan (date and location): 10/21/2022. Estimated date of delivery (IJEOMA) from first dating scan: 04/27/2023. The calculations are made using the ultrasound IJEOMA of 04/27/2023. TECHNIQUE: Real-time scanning was performed of the fetus and maternal pelvic organs, with image documentation. Endovaginal scanning was also performed to better visualize the fetus and maternal ovaries. COMPARISON: [facility], , OB <= 14 WEEKS FETUS, 04/15/2019, 9:35. FINDINGS: Embryo: Estimated gestational age 13 weeks 1 day Heart rate: 160 Maternal organs: Ovaries not visualized. IMPRESSION: Single living intrauterine with an estimated gestational age of 13 weeks 1 day by ultrasound. No previa or abruption. We strive to produce accurate, complete, and clear reports of imaging services. To assist us in improving patient care, this report was composed using standard report templates and voice recognition software. Therefore, it may contain abnormal punctuation, insertions and/or omissions. Occasional wrong-word or sound-alike substitutions may occur. Though we review the report and make efforts to correct it, we do recommend that the report be read carefully in proper context to recognize any text inaccuracies. Dictated by: Afshan Montgomery M.D. on 10/21/2022 at 8:10 Approved by: Afshan Montgomery M.D. on 10/21/2022 at 8:12
[2022-10-21 08:15] LABS: Alanine Aminotransferase 26 IU/L (<35); Albumin 3.8 g/dL (3.5-5.0); Albumin Globulin Ratio 1.3 (1.0-2.8); Alkaline Phosphatase 52 U/L (38-126); Aspartate Aminotransferase 26 IU/L (14-36); BUN Creatinine Ratio 21.1 (6-22); Bilirubin Total 0.5 mg/dL (0.2-1.3); Blood Urea Nitrogen 8 mg/dL (7-17); Calcium 8.5 mg/dL (8.4-10.2); Carbon Dioxide 22 mmol/L (22-32); Chloride 103 mmol/L (98-107); Estimated Glomerular Filt Rate > 60 mL/min (>60); Globulin 2.9 g/dL (1.7-4.1); Glucose 88 mg/dL (70-100); HEMOLYSIS < 15 (0-50); Potassium 3.7 mmol/L (3.4-5.1); Sodium 136 mmol/L (137-145); Total Protein 6.7 g/dL (6.3-8.2)
[2022-10-21 08:56] LABS: HCG Quantitative /Beta subunit 39247 mIU/mL
== END 2022-10-21 09:00 | disposition home or self-care (01) ==
PROVIDERS: Emergency Provider Emergency Medicine; PCP Family Medicine
DX: O46.91 Antepartum hemorrhage, unspecified, first trimester (principal); Z3A.13 13 weeks gestation of pregnancy
CPT/HCPCS: 36415; 76801; 80053; 84702; 85025; 86900; 86901; 99283; 99284

== ENCOUNTER → 2022-10-23 16:05 | Outpatient (CLI) | payer OTHER, MEDICAID, SELFPAY ==
[2022-10-23 17:06] LABS: Add Manual Diff / Slide Review NO; Basophils Absolute Auto 0 /uL (0-100); Basophils Percent Auto 0.3 % (0-2); Eosinophils Absolute Auto 100 /uL (0-450); Eosinophils Percent Auto 0.6 % (2-4); Hematocrit 41.4 % (36-46); Hemoglobin 14.5 g/dL (12.0-16.0); Lymphocytes Absolute Auto 3000 /uL (1100-4500); Lymphocytes Percent Auto 27.2 % (25-40); Mean Corpuscular HGB Conc 35.1 % (30-36); Mean Corpuscular Hemoglobin 31.7 PG (26-34); Mean Corpuscular Volume 90.3 fL (80-100); Monocytes Absolute Auto 600 /uL (0-900); Monocytes Percent Auto 5.3 % (3-14); Neutrophils Absolute Auto 7300 /uL (1500-7000); Neutrophils Percent Auto 66.6 % (50-75); Platelet Count 237 X10^3/uL (150-400); Red Blood Cell Count 4.59 X10^6/uL (4.0-5.2)
[2022-10-23 18:15] LABS: HCG Quantitative /Beta subunit 36547 mIU/mL
[2022-10-23 18:17] LABS: Hepatitis B Surface Antigen NEGATIVE s/c (NEGATIVE); Rubella Antibody IgG 7.7 IU/mL (>15)
[2022-10-23 18:27] LABS: HIV 1 & 2 Ab/Ag 4th Gen Combo NEGATIVE (NEGATIVE); Hep C Virus Ab w/Reflex Quant NEGATIVE s/c (NEGATIVE)
[2022-10-25 02:40] LABS: RPR Screen Non Reactive (Non Reactive)
[2022-10-25 09:17] LABS: Varicella IgG Antibody 266 index (Immune >165)
== END ==
PROVIDERS: PCP Family Medicine; Referring Provider Family Medicine; Visit Provider Family Medicine
DX: O46.90 Antepartum hemorrhage, unspecified, unspecified trimester (principal)
CPT/HCPCS: 36415; 80055; 84702; 86787; 86803; 86850; 86870; 86886; 86900; 86901; 87389

== ENCOUNTER → 2022-12-09 06:49 | Outpatient (CLI) | payer OTHER, MEDICAID, SELFPAY ==
--- NOTE | 2022-12-09 06:50 | DI.US.S_ITS ---
PROCEDURE: US OB >= 14 WEEKS FETUS INDICATIONS: 20 week anatomy OUTSIDE/PRIOR DATING DATA: Last menstrual period (LMP): 07/23/2022. LMP-based estimated date of delivery (IJEOMA): 04/29/2023. First dating scan (date and location): 10/21/2022. Estimated date of delivery (IJEOMA) from first dating scan: 04/27/2023. The calculations are made using the clinical IJEOMA of 04/29/2023. TECHNIQUE: Real-time scanning was performed of the fetus, with image documentation and biometric measurements. Endovaginal scanning: Not performed COMPARISON: [facility], OB >= 14 WEEKS FETUS, 06/15/2019, 9:30. FINDINGS: General: A single living intrauterine gestation is present. Presentation: Vertex. Placenta: Placental position is posterior , without previa. Amniotic fluid index: 11.7 cm, normal range is 5-24 cm. Single deepest vertical pocket is 4.5 cm. heart rate: 140 beats per minute. Maternal cervical canal: 4.0 cm long. Normal lower limit is 2.5 cm. biometrics: Biparietal diameter: 4.2 cm, 18 weeks 6 days Head circumference: 16.3 cm, 19 weeks Abdominal circumference: 13.3 cm, 18 weeks 5 days Femur length: 3.3 cm, 20 weeks 3 days Clinically estimated gestational age: 19 weeks 6 days Composite gestational age from present scan: 19 weeks 2 days Estimated weight and percentile: 294 g, 25th percentile Anatomic survey: Neuro: Ventricles are non-dilated at less than 10 mm. Cisterna magna is normal at 3-11 mm. Cerebellum is normal in size and morphology. Nuchal skin fold: Normal at less than 6 mm between 14-21 weeks gestational age. Face: Nose and lips, facial profile are normal. Spine: No evidence for spina bifida. Heart: Not visualized. Diaphragm: Not visualized. Stomach: Unremarkable. Kidneys: Not visualized. Cord: Not visualized. Bladder: Normal in size. Extremities: Right foot not visualized. IMPRESSION: Single living intrauterine at 19 weeks 6 days, IJEOMA of 04/29/2023. Limited anatomy survey. The heart, diaphragm, kidneys, cord insertion and extremities not well visualized due to habitus and positioning. Repeat examination is recommended. We strive to produce accurate, complete, and clear reports of imaging services. To assist us in improving patient care, this report was composed using standard report templates and voice recognition software. Therefore, it may contain abnormal punctuation, insertions and/or omissions. Occasional wrong-word or sound-alike substitutions may occur. Though we review the report and make efforts to correct it, we do recommend that the report be read carefully in proper context to recognize any text inaccuracies. Dictated by: Tyron Morrissey M.D. on 12/09/2022 at 9:21 Approved by: Tyron Morrissey M.D. on 12/09/2022 at 9:29
== END ==
PROVIDERS: PCP Family Medicine; Referring Provider Family Medicine; Visit Provider Family Medicine
DX: Z3A.19 19 weeks gestation of pregnancy; Z34.92 Encounter for supervision of normal pregnancy, unspecified, second trimester
CPT/HCPCS: 76811

== ENCOUNTER 2022-12-09 11:14 | Emergency (ER) | payer OTHER, MEDICAID, SELFPAY ==
[2022-12-09] VITALS (15 sets, daily range): BP systolic 96–145; BP diastolic 52–95; PULSE 73–96; RESP 16; TEMP 36.8; O2SAT 92–100; BMI 42.5
--- NOTE | 2022-12-09 11:50 | PC.NURSE ---
pt states she is dizzy/ blurred vision/ tunnel vision, vomited twice yesterday. started yesterday. also feels forgetful. had ultrasound this morning and then saw nurse who advised pt to come to ER. pt is poor historian. states nothing makes her feel better or worse. she just doesnt feel good.
[2022-12-09] MEDS: SODIUM CHLORIDE 0.9% 1,000 ML 1000 ML IV (11:53)
[2022-12-09 11:55] LABS: Add Manual Diff / Slide Review NO; Basophils Absolute Auto 100 /uL (0-100); Basophils Percent Auto 0.6 % (0-2); Eosinophils Absolute Auto 100 /uL (0-450); Eosinophils Percent Auto 0.5 % (2-4); Hemoglobin 13.9 g/dL (12.0-16.0); Lymphocytes Absolute Auto 2300 /uL (1100-4500); Lymphocytes Percent Auto 22.4 % (25-40); Mean Corpuscular HGB Conc 34.7 % (30-36); Mean Corpuscular Hemoglobin 30.3 PG (26-34); Mean Corpuscular Volume 87.4 fL (80-100); Monocytes Absolute Auto 600 /uL (0-900); Neutrophils Absolute Auto 7300 /uL (1500-7000); Neutrophils Percent Auto 70.5 % (50-75); Platelet Count 230 X10^3/uL (150-400); Red Blood Cell Count 4.58 X10^6/uL (4.0-5.2); Red Cell Distribution Width 12.4 % (11.6-14.8); White Blood Cell Count 10.4 X10^3/uL (4.5-11.0)
[2022-12-09 12:07] LABS: Alanine Aminotransferase 35 IU/L (<35); Albumin 3.7 g/dL (3.5-5.0); Albumin Globulin Ratio 1.2 (1.0-2.8); Alkaline Phosphatase 49 U/L (38-126); Aspartate Aminotransferase 23 IU/L (14-36); BUN Creatinine Ratio 16.7 (6-22); Bilirubin Total 0.2 mg/dL (0.2-1.3); Blood Urea Nitrogen 6 mg/dL (7-17); Calcium 9.2 mg/dL (8.4-10.2); Carbon Dioxide 23 mmol/L (22-32); Chloride 102 mmol/L (98-107); Estimated Glomerular Filt Rate > 60 mL/min (>60); Glucose 154 mg/dL (70-100); HEMOLYSIS < 15 (0-50); Lipase 60 U/L (23-300); Potassium 3.5 mmol/L (3.4-5.1); Sodium 131 mmol/L (137-145); Total Protein 6.7 g/dL (6.3-8.2)
--- NOTE | 2022-12-09 13:29 | ED_ITS ---
HPI - General Adult General Chief complaint: Abdominal Pain Stated complaint: 20 weeks /tunnel vision/dizzy/weak/shakey Time Seen by Provider: 12/09/22 12:22 Source: patient and family Mode of arrival: Wheelchair History of Present Illness HPI narrative: This is a 27-year-old female with 1 prior spontaneous miscarriage with no reported medical issues other than anti body E who is approximately 20 weeks. Patient states her so far has been without any issues. She is had care she had her anatomical survey which was done today she states she was called with results no major changes but there was limited visualization due to habitus and positioning. Patient states today and last night she felt sort of feet kind of dizzy slightly blurry little tunneling of her vision. She is not had any syncope. She did feel like she might pass out at work today. 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 Patient states no fevers or chills. No cold cough or congestion. No chest pain, no shortness of breath. She is had some mild nausea she had 1 episode of vomiting today. She is had some lower pelvic cramping. She denies any vaginal bleeding, discharge or other changes. She states no changes to bowel movement she typically has loose stools which she attributes to having prior cholecystectomy. No black or bloody stools. No dysuria urgency or frequency. No swelling. No known sick contacts. Patient states she was referred to [facility] her partner was tested had the little E antigen or antibody and they are less concerned about this. She is on prenatals is her only medication. She is had cholecystectomy and tonsillectomy. She is getting her care with Dr. Gleason. No tobacco, no alcohol, no illicit. Related Data Home Medications Medication Instructions Recorded Confirmed prenat.vits,dayton,pea-looe-putok 1 tab PO DAILY 09/01/22 11/26/22 Previous Rx's Medication Instructions Recorded sertraline 25 mg tablet 25 mg PO DAILY #30 tabs 11/26/22 Allergies Allergy/AdvReac Type Severity Reaction Status Date / Time adhesive Allergy Mild Hives Verified 11/26/22 08:49 Latex, Natural Rubber Allergy Mild Swelling, Verified 11/26/22 08:49 Localized Blisters Review of Systems Review of Systems ROS Unobtainable: All systems reviewed & are unremarkable except as noted in HPI and below Patient History Medical History ADHD Anxiety Bipolar disorder Depression pericardial effusion Spontaneous vaginal delivery Two vessel umbilical cord in [place] , antepartum Uterine inversion Surgical History Anesthesia H/O dilation and curettage History of ERCP History of tonsillectomy Status post cholecystectomy (~12/2019) Family History Mother Ovarian cancer Pre-diabetes History of heart disease Hyperlipidemia Hypertension Stroke Grandfather Colon cancer Diabetes mellitus Grandmother Diabetes mellitus Father Diabetes mellitus Hypertension Family/Other Diabetes mellitus Social History marital status: unmarried,single number of children: 1 household members: significant other lives independently: Yes caregiver/support person: Yes housing: other (mobile home) pets and animals: No education level: high school occupational status: employed (works in a [employer]) current occupational exposures/hazards: No special angelica needs: No travel history: over 6 months ago seatbelt use: always water heater temp set < 120 deg: Yes working smoke detector in home: Yes fire extinguisher in home: Yes carbon monox detector in home: Yes firearms in home: No do you feel safe at home: Yes Smoking Status: Current every day smoker Tobacco: How many years used: 13 (off and on, sometimes quit for years at a time) second hand exposure: No alcohol intake: former substance use type: marijuana during the past year weight has: increased > 10 lbs well-balanced diet: about half the time daily servings fruits/ve-4 caffeine: Yes Type(s) of exercise: none Smoking Status: Current every day smoker alcohol intake frequency: holidays/special occasions only Substance Use Type: does not use Exam Narrative Exam Narrative: GEN: Obese female, alert and oriented x 3, patient appears to be in mild distress. HEENT: Atraumatic, pupils are equal round reactive to light, extraocular movements are intact, nares are clear, there is no conjunctival pallor. Throat is clear without any exudates, erythema, tonsillar enlargement or uvular deviation HEART: Regular rate and rhythm without murmur, clicks, rubs. No swelling bilateral lower extremities. LUNGS:Lungs clear to auscultation, no wheezes, rales, crackles, chest moves symmetrically ABD:bowel sounds normal, gravid, soft, non-tender, no guarding, rebound, rigidity, no masses noted, no hepatosplenomegaly :No CVA tenderness MSCL: Non-tender, no muscle atrophy, muscles strength 5/5 upper and lower extremities, full range of motion, normal gait NEURO:CN 2-12 intact, sensation normal Initial Vital Signs Initial Vital Signs: Vital Signs Temperature 98.2 F 12/09/22 11:16 Pulse Rate 90 12/09/22 11:16 Respiratory Rate 16 12/09/22 11:16 Blood Pressure 138/73 12/09/22 11:16 Pulse Oximetry 96 12/09/22 11:16 Oxygen Delivery Method Room Air 12/09/22 11:16 Course Orders Ordered: ED Orders 12/09/22 11:34 Complete Blood Count AUTO DIFF Stat Comprehensive Metabolic Panel Stat Lipase Stat 12/09/22 11:40 EKG-12 Lead Stat 12/09/22 13:26 Urine Drug Screen, Rapid Stat Discontinued Medications Sodium Chloride (Normal Saline 0.9%) 1,000 mls @ 1,000 mls/hr IV BOLUS ONE Stop: 12/09/22 12:39 Last Infusion: 12/09/22 15:22 Dose: 0 mls/hr Documented By: Infusion: 12/09/22 12:36 Dose: 0 mls/hr Documented By: Admin: 12/09/22 11:53 Dose: 1,000 mls/hr Documented By: WOODY Ondansetron HCl (Ondansetron 4 Mg/2 Ml Inj) 4 mg IV NOW PRN PRN Reason: Nausea And Vomiting Vital Signs Vital signs: Vital Signs - 8 hr 12/09/22 11:16 12/09/22 11:24 12/09/22 11:25 Temperature 98.2 F Pulse Rate 90 91 H Pulse Rate [Orthostatic Sitting] Pulse Rate [Orthostatic Standing] Respiratory Rate 16 Blood Pressure 138/73 128/62 Blood Pressure [Orthostatic Sitting] Blood Pressure [Orthostatic Standing] Pulse Oximetry 96 97 Oxygen Delivery Method Room Air 12/09/22 11:25 12/09/22 11:30 12/09/22 11:30 Temperature Pulse Rate 96 H 90 Pulse Rate [Orthostatic Sitting] Pulse Rate [Orthostatic Standing] Respiratory Rate Blood Pressure 125/62 Blood Pressure [Orthostatic Sitting] Blood Pressure [Orthostatic Standing] Pulse Oximetry 96 96 Oxygen Delivery Method 12/09/22 12:00 12/09/22 12:30 12/09/22 12:30 Temperature Pulse Rate 86 81 Pulse Rate [Orthostatic Sitting] Pulse Rate [Orthostatic Standing] Respiratory Rate Blood Pressure 129/82 Blood Pressure [Orthostatic Sitting] Blood Pressure [Orthostatic Standing] Pulse Oximetry 97 100 Oxygen Delivery Method 12/09/22 13:00 12/09/22 13:00 12/09/22 13:55 Temperature Pulse Rate 73 Pulse Rate [Orthostatic Sitting] 85 Pulse Rate [Orthostatic Standing] 83 Respiratory Rate Blood Pressure 96/55 L Blood Pressure [Orthostatic Sitting] 116/74 Blood Pressure [Orthostatic Standing] 145/95 H Pulse Oximetry 100 Oxygen Delivery Method 12/09/22 13:24 12/09/22 13:24 12/09/22 13:30 Temperature Pulse Rate 80 Pulse Rate [Orthostatic Sitting] Pulse Rate [Orthostatic Standing] Respiratory Rate Blood Pressure 132/65 105/52 L Blood Pressure [Orthostatic Sitting] Blood Pressure [Orthostatic Standing] Pulse Oximetry 100 Oxygen Delivery Method 12/09/22 13:30 12/09/22 13:49 12/09/22 13:49 Temperature Pulse Rate 77 85 Pulse Rate [Orthostatic Sitting] Pulse Rate [Orthostatic Standing] Respiratory Rate Blood Pressure 116/74 Blood Pressure [Orthostatic Sitting] Blood Pressure [Orthostatic Standing] Pulse Oximetry 99 98 Oxygen Delivery Method 12/09/22 13:51 12/09/22 13:51 12/09/22 14:00 Temperature Pulse Rate 83 Pulse Rate [Orthostatic Sitting] Pulse Rate [Orthostatic Standing] Respiratory Rate Blood Pressure 145/94 H 122/65 Blood Pressure [Orthostatic Sitting] Blood Pressure [Orthostatic Standing] Pulse Oximetry 92 Oxygen Delivery Method 12/09/22 14:00 12/09/22 14:30 12/09/22 14:30 Temperature Pulse Rate 77 73 Pulse Rate [Orthostatic Sitting] Pulse Rate [Orthostatic Standing] Respiratory Rate Blood Pressure 113/62 Blood Pressure [Orthostatic Sitting] Blood Pressure [Orthostatic Standing] Pulse Oximetry 98 97 Oxygen Delivery Method 12/09/22 15:00 12/09/22 15:00 Temperature Pulse Rate 86 Pulse Rate [Orthostatic Sitting] Pulse Rate [Orthostatic Standing] Respiratory Rate Blood Pressure 120/83 Blood Pressure [Orthostatic Sitting] Blood Pressure [Orthostatic Standing] Pulse Oximetry 97 Oxygen Delivery Method Medical Decision Making Lab Data 12/09/22 11:34 12/09/22 11:34 Labs: Lab Results 12/09/22 12/09/22 12/09/22 Range/Units 11:34 11:34 13:26 WBC 10.4 (4.5-11.0) X10^3/uL RBC 4.58 (4.0-5.2) X10^6/uL Hgb 13.9 (12.0-16.0) g/dL Hct 40.0 (36-46) % MCV 87.4 (80-100) fL MCH 30.3 (26-34) PG MCHC 34.7 (30-36) % RDW 12.4 (11.6-14.8) % Plt Count 230 (150-400) X10^3/uL Neut % (Auto) 70.5 (50-75) % Lymph % (Auto) 22.4 L (25-40) % [place] % (Auto) 6.0 (3-14) % Eos % (Auto) 0.5 L (2-4) % Baso % (Auto) 0.6 (0-2) % Neut # (Auto) 7300 H (3439-8398) /uL Lymph # (Auto) 2300 (4733-2524) /uL [place] # (Auto) 600 (0-900) /uL Eos # (Auto) 100 (0-450) /uL Baso # (Auto) 100 (0-100) /uL Sodium 131 L (137-145) mmol/L Potassium 3.5 (3.4-5.1) mmol/L Chloride 102 (98-107) mmol/L Carbon Dioxide 23 (22-32) mmol/L BUN 6 L (7-17) mg/dL Creatinine 0.36 L (0.52-1.04) mg/dL Estimated GFR > 60 (>60) mL/min BUN/Creatinine Ratio 16.7 (6-22) Glucose 154 H (70-100) mg/dL Calcium 9.2 (8.4-10.2) mg/dL Total Bilirubin 0.2 (0.2-1.3) mg/dL AST 23 (14-36) IU/L ALT 35 H (<35) IU/L Alkaline Phosphatase 49 (38-126) U/L Total Protein 6.7 (6.3-8.2) g/dL Albumin 3.7 (3.5-5.0) g/dL Globulin 3.0 (1.7-4.1) g/dL Albumin/Globulin Ratio 1.2 (1.0-2.8) Lipase 60 (23-300) U/L U Opiates 300ng/mL cut Negative (Negative) Ur Oxycodone Screen Negative (Negative) Urine Methadone Screen Negative (Negative) Ur Barbiturates Screen Negative (Negative) U Tricyclic Antidepress Negative (Negative) Ur Phencyclidine Scrn Negative (Negative) Ur Amphetamines Screen Negative (Negative) U Methamphetamines Scrn Negative (Negative) Ur MDMA Scrn (Ecstasy) Negative (Negative) U Benzodiazepines Scrn Negative (Negative) Urine Cocaine Screen Negative (Negative) U Marijuana (THC) Screen Negative (Negative) Point of Care Testing Test Results Positive Glucose POC 168 Urine Dip Bedside Urine Glucose Negative Bedside Urine Bilirubin - Negative Bedside Urine Ketone - Negative Urine Specific [place] 1.015 Bedside Urine Occult Blood - Negative Bedside Urine pH 6.0 Bedside Urine Protein - Negative Bedside Urine Urobilinogen - Negative Bedside Urine Nitrite - Negative Bedside Urine Leukocytes - Negative Esterase Point of care testing: Point of Care Testing Test Results Positive Glucose POC 168 Urine Dip Bedside Urine Glucose Negative Bedside Urine Bilirubin - Negative Bedside Urine Ketone - Negative Urine Specific [place] 1.015 Bedside Urine Occult Blood - Negative Bedside Urine pH 6.0 Bedside Urine Protein - Negative Bedside Urine Urobilinogen - Negative Bedside Urine Nitrite - Negative Bedside Urine Leukocytes - Negative Esterase ECG Data Attestation: I personally reviewed and interpreted this ECG as follows: Interpretation: Sinus rhythm rate of 78 DE 168 QRS 88 QTC 424. Patient does not have any priors for comparison has inverted T-wave in 3, no other changes appreciated. MDM Narrative Medical decision making narrative: This is a 27-year-old female who presents with complaint of some lightheadedness, no syncope, tunnel vision blurred vision. Patient's blood pressure she is not hypertensive, she does not have significant edema or h yperreflexia DTRs, patient's labs overall are reassuring she is negative CBC, CMP as well as bilirubin and LFTs. Patient did have an anatomy scan today I reviewed this it is limited but portions that were visualized do not show major changes heart rate was 140 with the placental position that is posterior without previa amniotic fluid was 11.7. Patient has had some mild pelvic cramping. She had about 700 mL of fluid before her IV blew on each side. She has some slight swelling but I suspect she got the majority of this fluid. Patient denies any cold cough or congestive symptoms with asked and does not feel she needs a swab. Point of care urine does not show any infection. Patient had orthostatics in the department blood pressure improved while standing. She did not become tachycardic orthostatics are negative this was done after fluids. Patient does still have some symptoms. Discussed with patient have not found any clear cause of her symptoms but not appreciate any dangerous mechanisms currently. Discussed with Dr. Ridley patient's provider. Feels okay to do heart tones since she is 20 weeks by dates does not require NST today. Discharge Plan Departure Patient Disposition: Home Clinical Impression: Dizziness Activity Restrictions/Additional Instructions: Please follow-up with your provider. Your labs today did not show any major changes your urine is negative for infection. Please continue to hydrate. Please return for new or worsening symptoms you are having increasing lightheadedness passing out, new chest pain, shortness of breath, fevers, persistent vomiting, black or bloody stools, new abdominal, back or flank pain or other new or concerning changes. Prescriptions: No Action sertraline 25 mg tablet 25 mg PO DAILY Qty: 30 2RF prenat.vits,dayton,[id number] Tablet 1 tab PO DAILY Referrals: Mary Rodriguez DO [Primary Care Provider] - Stand Alone Forms: Patient Portal/API
[2022-12-09 13:49] LABS: UR Morphine/Opiate cutoff 300 Negative (Negative); Ur Creatinine Normal (Normal); Ur Specific Gravity Normal (Normal); Urine Amphetamines Negative (Negative); Urine Barbiturates Negative (Negative); Urine Benzodiazepines Negative (Negative); Urine Cocaine Negative (Negative); Urine MDMA Negative (Negative); Urine Methadone Negative (Negative); Urine Methamphetamines Negative (Negative); Urine Oxycodone Negative (Negative); Urine Phencyclidine Negative (Negative); Urine Tetrahydrocannabinol Negative (Negative); Urine Tricyclic Antidepressant Negative (Negative); Urine pH Normal (Normal)
== END 2022-12-09 15:25 | disposition home or self-care (01) ==
PROVIDERS: Emergency Provider Emergency Medicine; PCP Family Medicine
DX: O26.892 Other specified pregnancy related conditions, second trimester (principal); R42 Dizziness and giddiness; H53.8 Other visual disturbances; Z3A.20 20 weeks gestation of pregnancy; Z34.92 Encounter for supervision of normal pregnancy, unspecified, second trimester; Z3A.19 19 weeks gestation of pregnancy
CPT/HCPCS: 36415; 76811; 80053; 80305; 81003; 81025; 82962; 83690; 85025; 93005; 99283; 99284

== ENCOUNTER → 2023-01-09 09:50 | Outpatient (CLI) | payer OTHER, MEDICAID, SELFPAY | PROVIDERS: PCP Family Medicine; Referring Provider Family Medicine; Visit Provider Family Medicine | DX: O36.0920 Maternal care for other rhesus isoimmunization, second trimester, not applicable or unspecified (principal) | CPT/HCPCS: 36415; 86886 ==

== ENCOUNTER → 2023-01-26 11:48 | Outpatient (CLI) | payer OTHER, MEDICAID, SELFPAY ==
[2023-01-26 13:40] LABS: Add Manual Diff / Slide Review NO; Basophils Absolute Auto 0 /uL (0-100); Basophils Percent Auto 0.2 % (0-2); Eosinophils Absolute Auto 100 /uL (0-450); Eosinophils Percent Auto 0.8 % (2-4); Hematocrit 35.2 % (36-46); Hemoglobin 12.2 g/dL (12.0-16.0); Lymphocytes Absolute Auto 2300 /uL (1100-4500); Mean Corpuscular HGB Conc 34.6 % (30-36); Mean Corpuscular Hemoglobin 30.3 PG (26-34); Mean Corpuscular Volume 87.7 fL (80-100); Monocytes Absolute Auto 500 /uL (0-900); Monocytes Percent Auto 5.1 % (3-14); Neutrophils Absolute Auto 7100 /uL (1500-7000); Neutrophils Percent Auto 70.9 % (50-75); Platelet Count 214 X10^3/uL (150-400); Red Blood Cell Count 4.01 X10^6/uL (4.0-5.2); Red Cell Distribution Width 12.5 % (11.6-14.8)
[2023-01-26 13:56] LABS: GTT (PREG) 1 Hour PP 50gm Dose 142 mg/dL (76-139)
== END ==
PROVIDERS: PCP Family Medicine; Referring Provider Family Medicine; Visit Provider Family Medicine
DX: Z34.82 Encounter for supervision of other normal pregnancy, second trimester (principal); Z3A.26 26 weeks gestation of pregnancy
CPT/HCPCS: 36415; 82950; 85025

== ENCOUNTER → 2023-02-02 08:02 | Outpatient (CLI) | payer OTHER, MEDICAID, SELFPAY ==
[2023-02-02 09:38] LABS: Glucose Fasting Gestational 91 mg/dL (76-95)
[2023-02-02 10:33] LABS: Glucose 1 Hour Gest 152 mg/dL (76-180)
[2023-02-02 11:22] LABS: Glucose Tol Interp,Gestational INTERPRETATION
[2023-02-02 12:11] LABS: Glucose 3 Hour Gest 137 mg/dL (76-140)
[2023-02-02 12:11] LABS: Glucose 2 Hour Gest 121 mg/dL (76-155)
== END ==
PROVIDERS: PCP Family Medicine; Referring Provider Family Medicine; Visit Provider Family Medicine
DX: O24.419 Gestational diabetes mellitus in pregnancy, unspecified control (principal); Z3A.00 Weeks of gestation of pregnancy not specified
CPT/HCPCS: 36415; 82951; 82952

== ENCOUNTER → 2023-03-03 14:01 | Outpatient (CLI) | payer OTHER, MEDICAID, SELFPAY | PROVIDERS: PCP Family Medicine; Referring Provider Family Medicine; Visit Provider Family Medicine | DX: O36.0920 Maternal care for other rhesus isoimmunization, second trimester, not applicable or unspecified (principal) | CPT/HCPCS: 36415; 86850; 86870; 86886 ==

== ENCOUNTER → 2023-04-07 09:30 | Outpatient (CLI) | payer OTHER, MEDICAID, SELFPAY ==
[2023-04-08 08:24] LABS: Strep Grp B PCR POS for Grp B Strep
== END ==
PROVIDERS: Visit Provider Family Medicine
DX: Z34.83 Encounter for supervision of other normal pregnancy, third trimester (principal); Z3A.37 37 weeks gestation of pregnancy
CPT/HCPCS: 87653

== ENCOUNTER 2023-04-21 19:13 | Inpatient (IN) | payer OTHER, MEDICAID, SELFPAY ==
[2023-04-21] MEDS: DINOPROSTONE VAG (CERVIDIL) 10 MG VAG (21:08)
[2023-04-21 21:35] LABS: Add Manual Diff / Slide Review NO; Basophils Absolute Auto 0 /uL (0-100); Basophils Percent Auto 0.1 % (0-2); Eosinophils Absolute Auto 100 /uL (0-450); Eosinophils Percent Auto 0.7 % (2-4); Hematocrit 37.5 % (36-46); Hemoglobin 12.8 g/dL (12.0-16.0); Lymphocytes Absolute Auto 2800 /uL (1100-4500); Lymphocytes Percent Auto 22.3 % (25-40); Mean Corpuscular HGB Conc 34.2 % (30-36); Mean Corpuscular Hemoglobin 29.6 PG (26-34); Mean Corpuscular Volume 86.7 fL (80-100); Monocytes Absolute Auto 1200 /uL (0-900); Monocytes Percent Auto 9.8 % (3-14); Neutrophils Absolute Auto 8500 /uL (1500-7000); Neutrophils Percent Auto 67.1 % (50-75); Platelet Count 237 X10^3/uL (150-400); Red Blood Cell Count 4.33 X10^6/uL (4.0-5.2); Red Cell Distribution Width 13.5 % (11.6-14.8); White Blood Cell Count 12.7 X10^3/uL (4.5-11.0)
[2023-04-21] MEDS: ZOLPIDEM 5 MG TABLET PO (21:57)
[2023-04-21 23:39] VITALS: BP 127/68
--- NOTE | 2023-04-22 08:30 | P.HPOB_ITS ---
OB HPI Date/Time Date of admission: 04/21/23 Date Patient Seen: 04/22/23 History of Present Condition Chief complaint: Labor IJEOMA Calculator Estimated Delivery Date Method Current WG Current Estimate 04/29/23 Manual 39w 0d Final IJEOMA - VILMA Other Estimates 04/29/23 LMP (Certain) 39w 0d 05/13/23 Ultrasound #1 37w 0d 04/27/23 Ultrasound #2 39w 2d Estimated Gestational Age (weeks): 39w0d : 3 Para: 1 Narrative: Pt is a 27yo at 39w0d here for IOL due to hx of uterine inversion with last and desiring controlled delivery environment. Pt denies any vaginal bleeding or LOF prior to presentation. She was having intermittent cramping. She is feeling her baby move regularly. The pts was complicated by anti-e antibodies identified with initial labs. She is Rh positive. Her titers remained low throughout her , not prompting any additional evaluation. The fetus was noted to have bilateral club feet at anatomy u/s. The pt has met with orthopedics already, with plans for serial casting already made. There was mild urinary tract dilation noted scan and marginal cord insertion 1.4cm from cervical edge noted, both of which resolved. The fetus was noted to be SGA at the 15th then 12th percentile, however the weight then improved and at most recent u/s on 04/02 was noted to be the 46th percentile. The pt also had anxiety/depression during her , which is being treated with Sertraline. The pt does have a hx of uterine inversion with her last delivery. She has been counseled extensively by M as well as this provided regarding risks of vaginal delivery and benefits of with this delivery. The pt has elected to proceed with vaginal delivery at this facility. care: good care, initiated at week # (10) and pounds weight gain (12) Dating criteria OB: LMP confirmed by 1st trimester US Ultrasounds: normal 1st trimester US Preadmission Labs Last OB Lab Results: Blood Type O Positive 04/21/23 21:00 Antibody Screen Positive 04/21/23 21:00 Hematocrit 37.5 % (36-46) 04/21/23 21:00 Hemoglobin 12.8 g/dL (12.0-16.0) 04/21/23 21:00 Hepatitis B Surface Antigen Negative s/c (NEGATIVE) 10/23/22 16 :16 Hepatitis C Antibody Negative s/c (NEGATIVE) 10/23/22 16:16 Rubella Antibody 7.7 IU/mL (>15) L 10/23/22 16:16 Varicella-Zoster IgG Antibody 266 index (Immune >165) 10/23/22 16:16 Glucose 1 Hour 142 mg/dL (76-139) H 01/26/23 13:09 Group B Streptococcus (PCR) Pos for grp b strep H 04/07/23 09:3 0 Glucose Tolerance Testing: Fasting (91), 1 hr (152), 2 hr (121) and 3 hr (137) -: Chlamydia screen: negative, Gonorrhea screen: negative and Urine: positive (E coli) External Labs -: Urine: positive (E coli) Prior (ies) Past Pregnancies Del. Date GA/Weeks Labor Lgth Wt Sex Route Outcome Anesthesia Place Delv Breastfeed Preg Comp Name 05/15/16 6.4 spontaneous 11/03/19 40.5 12 7 lb 9 oz Male vaginal live - full term IH 18 months other anomaly Michael Delivery Date: 05/15/16 Last Updated by: Haylie Sutton RN missed AB found at 8 wk US, required D&C Delivery Date: 11/03/19 Last Updated by: Haylie Sutton RN 2-vessel cord, cardiac effusion Evaluation Evaluation Baseline heart rate: 145 Variability: Moderate (11-25) monitor accelerations: Present Monitor Decelerations: Absent Contraction Frequency (minutes): 5 Uterine Contraction Intensity: Mild Status: Category l Dilation (cm): 1 Effacement (%): 50 Dilation: 1-2 cm Effacement: 40-50% station: -3 Position of cervix: posterior Consistency: soft Medina score: 4 PFSH Medical History ADHD Anxiety Bipolar disorder Depression pericardial effusion Spontaneous vaginal delivery Two vessel umbilical cord in [place] , antepartum Uterine inversion Surgical History Anesthesia H/O dilation and curettage History of ERCP History of tonsillectomy Status post cholecystectomy (~12/2019) Family History Mother Ovarian cancer Pre-diabetes History of heart disease Hyperlipidemia Hypertension Stroke Grandfather Colon cancer Diabetes mellitus Grandmother Diabetes mellitus Father Diabetes mellitus Hypertension Family/Other Diabetes mellitus Social History marital status: unmarried,single number of children: 1 household members: significant other lives independently: Yes caregiver/support person: Yes housing: other (mobile home) pets and animals: No education level: high school occupational status: employed (works in a [employer]) current occupational exposures/hazards: No special angelica needs: No travel history: over 6 months ago seatbelt use: always water heater temp set < 120 deg: Yes working smoke detector in home: Yes fire extinguisher in home: Yes carbon monox detector in home: Yes firearms in home: No do you feel safe at home: Yes Smoking Status: Former smoker Tobacco: How many years used: 13 (off and on, sometimes quit for years at a time) second hand exposure: No alcohol intake: former substance use type: marijuana during the past year weight has: increased > 10 lbs well-balanced diet: about half the time daily servings fruits/ve-4 caffeine: Yes Type(s) of exercise: none Meds Home Medications and Allergies Home Medications Medication Instructions Recorded Confirmed Type prenat.vits,dayton,hwu-jjmp-ovzwj 1 tab PO DAILY #90 tabs 01/26/23 04/22/23 Rx Allergies Allergy/AdvReac Type Severity Reaction Status Date / Time adhesive Allergy Mild Hives Verified 04/17/23 10:31 Latex, Natural Rubber Allergy Mild Swelling, Verified 04/17/23 10:31 Localized Blisters OB Exam Narrative Exam Narrative: Gen: NAD, sitting comfortably in bed, appears well CV: RRR, no murmurs Resp: clear to auscultation bilaterally Abd: soft, nontender, gravid Ext: no edema Objective Labs 04/21/23 21:00 Labs: Laboratory Results - last 24 hr 04/21/23 04/21/23 21:00 21:00 WBC 12.7 H RBC 4.33 Hgb 12.8 Hct 37.5 MCV 86.7 MCH 29.6 MCHC 34.2 RDW 13.5 Plt Count 237 Neut % (Auto) 67.1 Lymph % (Auto) 22.3 L [place] % (Auto) 9.8 Eos % (Auto) 0.7 L Baso % (Auto) 0.1 Neut # (Auto) 8500 H Lymph # (Auto) 2800 [place] # (Auto) 1200 H Eos # (Auto) 100 Baso # (Auto) 0 Blood Type O Positive Antibody Screen Positive Antibody Identification Anti-E Assessment and Plan Assessment and Plan Assessment and Plan narrative: Pt is a 27yo at 39w0d here for IOL due to hx of uterine inversion with last and desiring controlled delivery environment. also c omplicated with positive Anti-E antibody, low titers, and bilateral club feet. Additional concerns resolved during . Pt is stable on Sertraline. Rh positive, GBS positive. Received Cervidil overnight with little cervical change. Medina score currently 4. Attempted to place sampson catheter this morning, however due to pt sensitivity to exam and severely posterior cervix could not be placed successfully. - Expectant management, anticipate . OR and back-up OIL WELL FISHING TOOL TECHNICIAN notified due to hx of inversion. - GBS positive, start ampicillin once in active labor - Will complete 4 doses of cytotec PO now - FHT reassuring
[2023-04-22] MEDS: CALCIUM CARBONATE 500 MG TAB 1000 MG PO ×2 (11:25→19:51)
[2023-04-22] MEDS: miSOPROStoL 25 MCG TABLET PO (11:25)
[2023-04-22] MEDS: LACTATED RINGERS 1,000 ML 100 ML IV (15:52)
--- NOTE | 2023-04-22 16:56 | P.PNOB_ITS ---
Date/Time Date Patient Seen: 04/22/23 Pain Control Pain control: tolerating well Pelvic Exam Dilation (cm): 1 Effacement (%): 50 station: -3 Amniotic membrane status: Intact Contractions Monitor mode: External Contraction frequency (min): 3 Contraction pattern: Irregular Contraction intensity: Mild Status status: Category l Heart Rate Baseline: 145 Monitor Accelerations: Present Monitor Decelerations: Absent Monitor Variability: Moderate Assessment and Plan Comments: Pt is a 27yo at 39w0d here for IOL due to hx of uterine inversion with last and desiring controlled delivery environment.? also complicated with positive Anti-E antibody, low titers, and bilateral club feet.? Additional concerns resolved during .? Pt is stable on Sertraline.? Rh positive, GBS positive.? Received Cervidil overnight with little cervical change.? Medina score still 4.? Attempted to place sampson catheter this morning, however due to pt sensitivity to exam and severely posterior cervix could not be placed successfully. Pt received one dose of cytotec, however now earl too frequently for additional dosing. Sampson cather successfully placed with speculum, and topical lidocaine on speculum. Inflated to 60cc, and gentle traction applied. Will remain in place for up to 12hrs. - Expectant management, anticipate .? OR and back-up VULCANIZING MACHINE OPERATOR notified due to hx of inversion. - GBS positive, start ampicillin once in active labor - FHT reassuring
[2023-04-22] MEDS: AMPICILLIN 2,000 MG in SODIUM CHLORIDE 0.9% 100 ML 200 MG IV (19:39)
[2023-04-22] MEDS: OXYTOCIN PREMIX 30 UNIT/500 ML PLAST..BAG IV (19:48)
[2023-04-22] MEDS: ZOLPIDEM 5 MG TABLET PO (23:09)
[2023-04-22] MEDS: AMPICILLIN 1,000 MG in SODIUM CHLORIDE 0.9% 100 ML 200 MG IV (23:50)
[2023-04-23] MEDS: AMPICILLIN 1,000 MG in SODIUM CHLORIDE 0.9% 100 ML 200 MG IV ×3 (03:50→12:10)
[2023-04-23] MEDS: fentaNYL 100 MCG/2 ML INJ 50 MCG IV (09:16)
--- NOTE | 2023-04-23 09:46 | PM.OBPNLAB ---
Date/Time Date Patient Seen: 04/23/23 Pain Control Pain control: narcotic analgesia Pelvic Exam Dilation (cm): 3.5 Effacement (%): 60 station: -2 Amniotic membrane status: Ruptured Comments: After informed consent, AROM performed with clear fluid present Contractions Monitor mode: Internal Pitocin rate (mU/min): 19 Contraction frequency (min): 2 Contraction pattern: Regular Intrauterine tone measurement: 160 Status status: Category l Heart Rate Baseline: 130 Monitor Accelerations: Present Monitor Decelerations: Absent Monitor Variability: Moderate Assessment and Plan Comments: Pt is a 27yo at 39w1d here for IOL due to hx of uterine inversion with last and desiring controlled delivery environment.? also complicated with positive Anti-E antibody, low titers, and bilateral club feet.? Additional concerns resolved during .? Pt is stable on Sertraline.? Rh positive, GBS positive.? Received Cervidil with little cervical change.? Medina score still 4.? Attempted to place sampson catheter, however due to pt sensitivity to exam and severely posterior cervix could not be placed successfully.? Pt received one dose of cytotec, however then earl too frequently for additional dosing.? Sampson cather successfully placed with speculum, and topical lidocaine on speculum.? Fell out after 1hr. Pt on pitocin overnight with no significant cervical change but some descent. Able to AROM this morning, after Ampicillin prophylaxis was adequate for GBS prophylaxis. IUPC placed due to difficulty monitoring contractions and to help with pitocin titration. Contractions not yet adequate. Will continue with pitocin for now. - Expectant management, anticipate .? OR and back-up LONG CHAIN DYEING MACHINE OPERATOR notified due to hx of inversion. - FHT reassuring
[2023-04-23] MEDS: FENT 2MCG/ML BUPIV 0.125% EPI 200 MCG/100 ML PLAST..BAG 8 MCG EPIDURAL (11:00)
--- NOTE | 2023-04-23 11:36 | PM.AN.REGBLK ---
[facility] <Ankit Amezcua CRNA - Last Filed: 04/23/23 11:48> Pre-procedure PMH/ROS narrative: , induction. Patient h/o of uterine inversion with 1st deliver w/ PPM, received blood products (2019), asthmatic, GERD, Bipolar history, obesity BMI > 45. Patient is anti-E antibodies from previous transfusion (2019). Patient is cross-matched, 2 Large bore IVs placed per nursing staff report. Request ALAINA. Assessed/consented on 04/22/2023 , epidural placed 04/23/23 ~ 1030. MP IV, small mouth opening, TMD4, lungs clear, HRR PSH/Anesthesia history narrative: see above Labs: Hct 37.5 % (36-46) 04/21/23 21:00 Plt Count 237 X10^3/uL (150-400) 04/21/23 21:00 Medications: Current Medications Generic Name Dose Route Start Last Admin Trade Name Freq PRN Reason Stop Dose Admin Calcium Carbonate 1,000 mg 04/21/23 20:06 04/22/23 19:51 Calcium Carbonate 500 Mg Tab PO 1,000 mg Q4HR PRN Administration Dyspepsia Carboprost Tromethamine 250 mcg 04/21/23 20:06 Carboprost 250 Mcg/Ml Ampul IM Q90M PRN Bleeding Fentanyl 50 mcg 04/21/23 20:06 04/23/23 09:16 Fentanyl 100 Mcg/2 Ml Inj IV 50 mcg Q1H PRN Administration Pain, Moderate (4-6) Oxytocin/Lactated Ringer's 30 unit in 500 mls @ 200 mls/hr 04/21/23 20:06 Oxytocin Premix IV CONT PRN Bleeding Protocol Oxytocin/Lactated Ringer's 30 unit in 500 mls @ 2 mls/hr 04/21/23 20:15 04/22/23 19:48 Oxytocin Premix IV 2 milliunit/min TITRATE FRANCISCO 2 mls/hr Administration Protocol 2 MILLIUNIT/MIN Ampicillin Sodium 1,000 mg/ 100 mls @ 200 mls/hr 04/22/23 00:00 04/23/23 08:17 Sodium Chloride IV 200 mls/hr Q4H FRANCISCO Administration Lactated Ringer's 1,000 mls @ 100 mls/hr 04/21/23 20:15 04/22/23 15:52 Lactated Ringers IV 100 mls/hr CONT FRANCISCO Administration Tranexamic Acid 1,000 mg/ 100 mls @ 200 mls/hr 04/21/23 20:06 Sodium Chloride IV NOW PRN Bleeding Lidocaine HCl 20 ml 04/21/23 20:06 Lidocaine 1% 20 Ml INJ INTRA-OP PRN Post Delivery Methylergonovine Maleate 0.2 mg 04/21/23 20:06 Methylergonovine 0.2 Mg Tablet PO Q6HR PRN Heavy Bleeding Methylergonovine Maleate 0.2 mg 04/21/23 20:06 Methylergonovine 0.2 Mg/Ml Vial IM NOW PRN Bleeding Misoprostol 400 mcg 04/21/23 20:06 Misoprostol 200 Mcg Tablet SL NOW PRN Bleeding Misoprostol 800 mcg 04/21/23 20:06 Misoprostol 200 Mcg Tablet OR NOW PRN Bleeding Naloxone HCl 0.2 mg 04/21/23 20:06 Naloxone 0.4 Mg/Ml Vial IV Q2MIN PRN Opiate Reversal Ondansetron HCl 4 mg 04/21/23 20:06 Ondansetron 4 Mg/2 Ml Inj IV Q4HR PRN Nausea And Vomiting Oxytocin 10 unit 04/21/23 20:06 Oxytocin 10 Unit/Ml Vial IM NOW PRN Bleeding Zolpidem Tartrate 5 mg 04/21/23 21:27 04/22/23 23:09 Zolpidem 5 Mg Tablet PO 5 mg BEDTIME PRN Administration Sleep Allergies: Allergies Allergy/AdvReac Type Severity Reaction Status Date / Time adhesive Allergy Mild Hives Verified 04/17/23 10:31 Latex, Natural Rubber Allergy Mild Swelling, Verified 04/17/23 10:31 Localized Blisters Procedure Insertion date: 04/23/23 Insertion time: 10:46 Prep/Local: betadine x3 and 1% lidocaine Interspace: L3-4 Needle: 18 gauge Denny Loss of resistance with: saline CELSO at (cm): 9 Catheter placed at SKIN (cm): 14 Catheter in SPACE (cm): 6 Sensory level: T10 Insertion: No CSF, No Blood, No Paresthesia with insertion, No Paresthesia with injection and No Test dose reaction Initial Medications TEST DOSE time: 10:48 BOLUS DOSE time: 10:50 BOLUS DOSE (mL): 8 BOLUS DOSE med: other (6mL 0.25% bupivacaine and 2mL fentanyl (100mcg)) Infusion Initial rate (mL/hr): 8 Post-procedure Anesthesia time START: 10:34 <Dru Dykes CRNA - Last Filed: 04/23/23 15:27> Infusion Subsequent interventions: 14:10 - Called for additional epidural bolus. 6mL of PF 0.25% bupivacaine administered. Patient 8 cm, at or near zero station per staff. Appears calm, but reports significant pressure. 15:02 - Uneventful delivery, patient and baby stable. Post-procedure Anesthesia time END: 15:02 Post-procedure Anesthesia Assessment: Yes CV function: HR/BP stable, Yes Resp function: RR/sat/airway adequate, Yes Post-op hydration adequate, Yes Pain control adequate, Yes Nausea & vomiting absent, Yes Temperature > 36 C and Yes Mental status appropriate
[2023-04-23] MEDS: LACTATED RINGERS 1,000 ML 100 ML IV (12:11)
[2023-04-23] MEDS: ONDANSETRON 4 MG/2 ML INJ IV (13:03)
--- NOTE | 2023-04-23 15:29 | PM.OBPRVD ---
Labor & Delivery Delivery date: 04/23/23 Cervical ripening method: per Cervidil protocol Induction method: per pitocin protocol Delivery augmentation: rupture of membranes Delivery monitor: internal FHT and internal uterine Route of delivery: Episiotomy description: None L&D Laceration Description: None Quantitative Blood Loss: 200 Anesthesia Type: Epidural Complications: Retained products of conception Narrative: PROCEDURE: at 39w0d presented for IOL due to hx of uterine inversion at the time of delivery and desiring a controlled delivery environment and was admitted to Labor and Delivery. She received cervidil for induction without significant cervical change. Cytotec was then used x1, but additional dosing could not be given due to frequency of contractions. Shelby balloon was then placed. After this fell out, pitocin was initiated. After adequate GBS prophylaxis with ampicillin, AROM occured at 8:36 with clear fluid. IUPC was ultimately placed due to difficulty monitoring contractions and to allow for better titration of pitocin. The patient progressed through the 1st stage over 4.5 hours. Pain was controlled with an epidural. FSE was placed due to difficulty monitoring FHT. The patient progressed through the 2nd stage over 37 minutes and delivered a viable female infant with APGARs 8/9 at 15:02 via . Nuchal cord x1 was reduced after delivery. The cord was cut and clamped after it stopped pulsating. The placenta delivered with gentle cord traction, but was not complete. Manual extraction was used to remove the remainder of the placenta. The uterus was then swept to ensure on POC present, and no evidence of inversion. The perineum and vagina were inspected with no lacerations. Needle and sponge counts were correct.? The vagina was inspected and no items were left in situ. Chloé was doing well with Nessa, her and FOB, mother, step-mother, and friend at bedside. PREPROCEDURE DIAGNOSIS: Intrauterine at 39w1d Bilateral club feet Anti-E antibody positive Anxiety/Depression GBS positive RH positive POSTPROCEDURE DIAGNOSIS: Intrauterine at 39w1d, delivered Same as preprocedure Baby 1: gender: Female Presentation: vertex Position: Left Occiput Anterior Placenta delivery description: Manual Removal Cord Vessel Description: 3 Vessels and Nuchal Cord score (1 min): 8 score (5 min): 9 weight: 7 lb 0.418 oz Plan for aftercare: Routine care
[2023-04-23] MEDS: IBUPROFEN 600 MG TABLET PO (16:56)
[2023-04-23] MEDS: DERMOPLAST SPRAY 20% 60 ML 1 SPRAY TOP (16:56)
[2023-04-23] MEDS: OXYTOCIN PREMIX 30 UNIT/500 ML PLAST..BAG 500 UNIT IV (17:00)
[2023-04-23] MEDS: miSOPROStoL 200 MCG TABLET 1000 MCG PR (17:18)
[2023-04-23] MEDS: METHYLERGONOVINE 0.2 MG/ML VIAL IM (17:20)
--- NOTE | 2023-04-23 17:26 | PM.EVENT ---
Event Note Date Patient Seen: 04/23/23 Time Patient Seen: 17:26 Event Note (Rapid Response, Code, or fall): Contacted by nursing due to the patient passing several large clots that were very fibrinous. Came to bedside. The pt was alert and conversant with stable vital signs. With fundal massage the pt was noted to have a steady trickle. Bimanual extraction of several large clots from her vagina and uterus was completed. The pts uterus was then swept, without any remaining clots or feeling of POC present. Her uterus was earl down well. She was given IM Methergine in addition to rectal cytotec, while Pitocin was running as well. Vital signs remain stable. Total QBL of 1111 since initial 200QBL of delivery.
[2023-04-23] MEDS: TRANEXAMIC ACID 1,000 MG in SODIUM CHLORIDE 0.9% 100 ML 200 MG IV (17:47)
[2023-04-23] MEDS: ACETAMINOPHEN 325 MG TABLET 650 MG PO (23:51)
[2023-04-23] MEDS: METHYLERGONOVINE 0.2 MG TABLET PO (23:51)
[2023-04-23] MEDS: CALCIUM CARBONATE 500 MG TAB PO (23:55)
[2023-04-24] MEDS: CALCIUM CARBONATE 500 MG TAB PO (04:41)
[2023-04-24] MEDS: OXYCODONE IR 5 MG TABLET PO (04:41)
[2023-04-24] MEDS: ACETAMINOPHEN 325 MG TABLET 650 MG PO ×2 (06:36→15:47)
[2023-04-24] MEDS: METHYLERGONOVINE 0.2 MG TABLET PO (06:36)
[2023-04-24 06:49] LABS: Add Manual Diff / Slide Review NO; Basophils Absolute Auto 100 /uL (0-100); Basophils Percent Auto 0.5 % (0-2); Eosinophils Absolute Auto 100 /uL (0-450); Eosinophils Percent Auto 0.5 % (2-4); Hemoglobin 9.6 g/dL (12.0-16.0); Lymphocytes Absolute Auto 2500 /uL (1100-4500); Lymphocytes Percent Auto 17.8 % (25-40); Mean Corpuscular HGB Conc 34.2 % (30-36); Mean Corpuscular Volume 87.5 fL (80-100); Monocytes Absolute Auto 1000 /uL (0-900); Monocytes Percent Auto 7.2 % (3-14); Neutrophils Absolute Auto 10400 /uL (1500-7000); Platelet Count 165 X10^3/uL (150-400); Red Cell Distribution Width 13.9 % (11.6-14.8)
[2023-04-24] MEDS: IBUPROFEN 600 MG TABLET PO ×2 (09:01→15:47)
[2023-04-24] MEDS: DOCUSATE 100 MG CAPSULE PO (09:01)
[2023-04-24] MEDS: PRENATAL VIT,CALC/IRON/FOLIC 1 TABLET 1 TAB PO (09:01)
--- NOTE | 2023-04-24 09:24 | P.DS_ITS ---
Discharge Providers Provider Date of admission: 04/21/23 19:13 Discharge Date: 04/24/23 Primary care physician: Mary Rodriguez DO Consults: 04/24/23 15:27 Consult to Ground Source Heat Pump Technician Routine Comment: Discharge provider: Portia Ridley MD Summary Hospital Course Date Patient Seen: 04/24/23 Diagnoses: Intrauterine at 39w1d Bilateral club feet Anti-E antibody positive Anxiety/Depression GBS positive RH positive hemorrhage Acute blood loss anemia Hospital Course: The pt presented for IOL. She received cervidil followed by cytotec. Shelby catheter was then placed, that fell out on its own. Pitocin was then initiated and titrated. AROM was performed with clear fluid present. IUPC and FSE were ultimately placed. The pt progressed to complete, and had an of a viable baby girl. There were no lacerations. The placenta was not fully produced with cord traction, and manual extraction of the placenta was performed. Her uterus was then swept fully without any remaining POC present. Approximately 1hr after delivery, the pt had production of significant clots. Bimanual exam revealed significantly more clots in her uterus, but no POC. The clots were removed. The pt received Methergine, TXA, Pitocin, and rectal cytotec to control her bleeding. She was continued on PO Methergine overnight. Her lochia was decreasing appropriately at the time of discharge. At the time of discharge she was voiding, ambulating, and passing flatus without difficulty. Her pain was well controlled. She was with good latch. She will f/u in 6 weeks for check. Peripartum Data Infant Delivery Method: Natural Vaginal Laceration Description: None Procedures: Spontaneous vaginal delivery Manual extraction of placenta Manual extraction of clots complications: retained placenta 1: Gender: Female Disposition of : home Time Spent with Patient Time attestation: Total time spent providing and/or coordinating discharge services: Objective Labs 04/24/23 06:40 Labs: Laboratory Results - last 24 hr 04/24/23 06:40 WBC 14.0 H RBC 3.20 L Hgb 9.6 L Hct 28.0 L MCV 87.5 MCH 30.0 MCHC 34.2 RDW 13.9 Plt Count 165 Neut % (Auto) 74.0 Lymph % (Auto) 17.8 L [place] % (Auto) 7.2 Eos % (Auto) 0.5 L Baso % (Auto) 0.5 Neut # (Auto) 20781 H Lymph # (Auto) 2500 [place] # (Auto) 1000 H Eos # (Auto) 100 Baso # (Auto) 100 Exam Vital Signs (past 8 hours): Oxygen Delivery Method Room Air Narrative Exam Narrative: Gen: NAD, sitting comfortably in bed, appears well CV: RRR, no murmurs Resp: clear to auscultation bilaterally Abd: soft, appropriately tender, fundus firm and below the umbilicus, nondistended Ext: no edema Discharge Plan Discharge Plan Patient Disposition: Home Discharge orders & Medications Prescriptions: New acetaminophen 325 mg Tablet 650 mg PO Q6HR PRN (Reason: Pain, Mild (1-3)) Qty: 30 0RF docusate sodium 100 mg Capsule 100 mg PO DAILY Qty: 30 0RF ibuprofen 600 mg Tablet 600 mg PO Q6HR PRN (Reason: Pain, Mild (1-3)) Qty: 30 0RF Continued prenat.vits,dayton,mud-[id number]-pholq Tablet 1 tab PO DAILY Qty: 90 3RF Follow up/Referrals: Portia Ridley MD [Physician] - 6 Weeks Mary Rodriguez DO [Primary Care Provider] - Diet/Activity/Treatments Diet: Diet as Tolerated and Regular Skin/Wound/Dressing Care Report to your healthcare provider any signs of infection, such as:: chills, fever, increased pain and unusual drainage Visit Report/Discharge Packet Instructions: DI for Labor and Delivery, Vaginal Stand Alone Forms: Patient Portal/API, Stroke Signs & Symptoms Discharge Data Primary Care Provider: Mary Rodriguez
[2023-04-24 17:11] VITALS: BP 127/68
== END 2023-04-24 16:52 | disposition home or self-care (01) | DRG 560 ==
PROVIDERS: Admitting Provider Family Medicine; PCP Family Medicine; Referring Provider Obstetrics & Gynecology; Visit Provider Obstetrics & Gynecology
DX: O99.824 Streptococcus B carrier state complicating childbirth (principal); O90.81 Anemia of the puerperium; D62 Acute posthemorrhagic anemia; O99.344 Other mental disorders complicating childbirth; F41.8 Other specified anxiety disorders; F32.A Depression, unspecified; Z37.0 Single live birth; Z3A.39 39 weeks gestation of pregnancy; O36.1930 Maternal care for other isoimmunization, third trimester, not applicable or unspecified; Z67.40 Type O blood, Rh positive
CPT/HCPCS: 36415; 36592; 59050; 59200; 59400; 76815; 85025; 86850; 86870; 86900; 86901; G0379; J0290; J2210; J2405; J2590; J3010; S0191

== ENCOUNTER 2023-05-06 23:03 | Observation (INO) | payer OTHER, MEDICAID, SELFPAY ==
--- NOTE | 2023-05-06 23:05 | DI.US.S_ITS ---
PROCEDURE: US PELVIC COMPLETE INDICATIONS: VAGINAL HEMORRHAGE 2 WEEKS POST TECHNIQUE: Real-time scanning was performed of the pelvic organs, with image documentation. Additional endovaginal scanning was necessary due to incomplete visualization of the adnexal and endometrial structures by transabdominal scanning. COMPARISON: [facility], , PELVIC COMPLETE, 01/21/2013, 15:18. FINDINGS: Uterus: Uterus is anteverted and there is 12.3 x 7.2 x 8.3 cm. The myometrium is heterogeneous.. The endometrium measures 39.1 mm combined thickness. Vascularity is visualized within the endometrium. Ovaries: The ovaries are not visualized. Other: No pathologic free abdominal or pelvic fluid. IMPRESSION: Markedly thickened, vascular endometrium consistent with retained products of conception. We strive to produce accurate, complete, and clear reports of imaging services. To assist us in improving patient care, this report was composed using standard report templates and voice recognition software. Therefore, it may contain abnormal punctuation, insertions and/or omissions. Occasional wrong-word or sound-alike substitutions may occur. Though we review the report and make efforts to correct it, we do recommend that the report be read carefully in proper context to recognize any text inaccuracies. Dictated by: Padmini Box M.D. on 05/06/2023 at 23:47 Approved by: Padmini Box M.D. on 05/06/2023 at 23:48
[2023-05-06 23:07] VITALS: BP 139/77; PULSE 86; PULSE 88; RESP 18; TEMP 36.7; O2SAT 98; O2SAT 99; BMI 42.1
[2023-05-06 23:30] VITALS: BP 137/65; PULSE 87; RESP 18; O2SAT 98
[2023-05-06 23:36] LABS: Add Manual Diff / Slide Review NO; Basophils Absolute Auto 100 /uL (0-100); Basophils Percent Auto 1.3 % (0-2); Eosinophils Absolute Auto 200 /uL (0-450); Eosinophils Percent Auto 1.5 % (2-4); Hematocrit 32.8 % (36-46); Hemoglobin 11.1 g/dL (12.0-16.0); Lymphocytes Absolute Auto 3400 /uL (1100-4500); Lymphocytes Percent Auto 32.4 % (25-40); Mean Corpuscular HGB Conc 33.9 % (30-36); Mean Corpuscular Hemoglobin 28.7 PG (26-34); Mean Corpuscular Volume 84.6 fL (80-100); Monocytes Absolute Auto 700 /uL (0-900); Monocytes Percent Auto 6.6 % (3-14); Neutrophils Absolute Auto 6100 /uL (1500-7000); Neutrophils Percent Auto 58.2 % (50-75); Platelet Count 331 X10^3/uL (150-400); Red Blood Cell Count 3.88 X10^6/uL (4.0-5.2); Red Cell Distribution Width 13.4 % (11.6-14.8); White Blood Cell Count 10.5 X10^3/uL (4.5-11.0)
[2023-05-06 23:49] LABS: BUN Creatinine Ratio 14.3 (6-22); Blood Urea Nitrogen 8 mg/dL (7-17); Calcium 9.1 mg/dL (8.4-10.2); Carbon Dioxide 23 mmol/L (22-32); Chloride 105 mmol/L (98-107); Estimated Glomerular Filt Rate > 60 mL/min (>60); Glucose 98 mg/dL (70-100); HEMOLYSIS < 15 (0-50); Potassium 3.4 mmol/L (3.4-5.1); Sodium 137 mmol/L (137-145)
--- NOTE | 2023-05-06 23:58 | ED_ITS ---
HPI - General Adult General Chief complaint: Vaginal Bleeding Stated complaint: Vaginal hemorrhage Time Seen by Provider: 05/06/23 23:05 Source: patient and EMS Mode of arrival: EMS History of Present Illness HPI narrative: Otherwise healthy 27-year-old female. Is 14 days from a vaginal delivery. She is not . According to the patient during the time of delivery there was an issue with retained products. Had to be a manual removal of placenta. 1 hour after delivery she would another episode of vaginal bleeding and once again an attempt at removal of any retained products was once again performed. She was subsequently discharged from the hospital. She stated that over the past 2 weeks her bleeding has actually improved to the point where she was no longer having any bleeding but just normal discharge. States that yesterday she had 1 episode where she passed a large red clot. She was having some cramping during this time. This evening she states she was standing in the kitchen when she passed another large clot and then has been continuously bleeding since that time. No fevers. No urinary symptoms. No change in bowel habits. Related Data Previous Rx's Medication Instructions Recorded prenat.vits,dayton,hik-ehux-vokch 1 tab PO DAILY #90 tabs 01/26/23 acetaminophen 325 mg tablet 650 mg PO Q6HR PRN Pain, Mild 04/24/23 (1-3) #30 tabs docusate sodium 100 mg capsule 100 mg PO DAILY #30 caps 04/24/23 ibuprofen 600 mg tablet 600 mg PO Q6HR PRN Pain, Mild 04/24/23 (1-3) #30 tabs Allergies Allergy/AdvReac Type Severity Reaction Status Date / Time adhesive Allergy Mild Hives Verified 04/17/23 10:31 Latex, Natural Rubber Allergy Mild Swelling, Verified 04/17/23 10:31 Localized Blisters Review of Systems Constitutional Constitutional: Reports system reviewed and no additional complaints, except as documented Gastrointestinal Gastrointestinal: Reports system reviewed and no additional complaints, except as documented Genitourinary Genitourinary: Reports system reviewed and no additional complaints, except as documented Integumentary/Breasts Skin/Breast: Reports system reviewed and no additional complaints, except as documented Neurologic Neurologic: Reports system reviewed and no additional complaints, except as documented Patient History Medical History ADHD Anxiety Bipolar disorder Depression pericardial effusion Spontaneous vaginal delivery Two vessel umbilical cord in [place] , antepartum Uterine inversion Surgical History Anesthesia H/O dilation and curettage History of ERCP History of tonsillectomy Status post cholecystectomy (~12/2019) Family History Mother Ovarian cancer Pre-diabetes History of heart disease Hyperlipidemia Hypertension Stroke Grandfather Colon cancer Diabetes mellitus Grandmother Diabetes mellitus Father Diabetes mellitus Hypertension Family/Other Diabetes mellitus Social History marital status: unmarried,single number of children: 1 household members: significant other lives independently: Yes caregiver/support person: Yes housing: other (mobile home) pets and animals: No education level: high school occupational status: employed (works in a [employer]) current occupational exposures/hazards: No special angelica needs: No travel history: over 6 months ago seatbelt use: always water heater temp set < 120 deg: Yes working smoke detector in home: Yes fire extinguisher in home: Yes carbon monox detector in home: Yes firearms in home: No do you feel safe at home: Yes Smoking Status: Current every day smoker Tobacco: How many years used: 13 (off and on, sometimes quit for years at a time) second hand exposure: No alcohol intake: former substance use type: marijuana during the past year weight has: increased > 10 lbs well-balanced diet: about half the time daily servings fruits/ve-4 caffeine: Yes Type(s) of exercise: none Smoking Status: Current every day smoker tobacco type: cigarettes alcohol intake frequency: holidays/special occasions only Substance Use Type: does not use Exam Initial Vital Signs Initial Vital Signs: Vital Signs Temperature 98.1 F 05/06/23 23:07 Pulse Rate 88 05/06/23 23:07 Respiratory Rate 18 05/06/23 23:07 Blood Pressure 139/77 05/06/23 23:07 Pulse Oximetry 98 05/06/23 23:07 Oxygen Delivery Method Room Air 05/06/23 23:07 Const General: cooperative, comfortable and No ill appearing HENMT Head: normal to inspection and normocephalic Resp Effort & Inspection: normal respiratory effort Cardio Rate: regular rate GI Inspection: non-distended Neuro General: patient alert, patient awake and patient oriented x3 Course Orders Ordered: ED Orders 05/06/23 23:05 US pelvic complete Stat 05/06/23 23:20 Basic Metabolic Panel Stat Complete Blood Count AUTO DIFF Stat Vital Signs Vital signs: Vital Signs - 8 hr 05/06/23 23:07 05/06/23 23:07 05/06/23 23:30 Temperature 98.1 F Pulse Rate 88 86 Respiratory Rate 18 Blood Pressure 139/77 137/65 Pulse Oximetry 98 99 Oxygen Delivery Method Room Air Room Air 05/06/23 23:30 Temperature Pulse Rate 87 Respiratory Rate 18 Blood Pressure Pulse Oximetry 98 Oxygen Delivery Method Room Air Medical Decision Making Lab Data Lab results reviewed: Yes I reviewed the patient's lab results. 05/06/23 23:20 05/06/23 23:20 Labs: Lab Results 05/06/23 05/06/23 Range/Units 23:20 23:20 WBC 10.5 (4.5-11.0) X10^3/uL RBC 3.88 L (4.0-5.2) X10^6/uL Hgb 11.1 L (12.0-16.0) g/dL Hct 32.8 L (36-46) % MCV 84.6 (80-100) fL MCH 28.7 (26-34) PG MCHC 33.9 (30-36) % RDW 13.4 (11.6-14.8) % Plt Count 331 (150-400) X10^3/uL Neut % (Auto) 58.2 (50-75) % Lymph % (Auto) 32.4 (25-40) % [place] % (Auto) 6.6 (3-14) % Eos % (Auto) 1.5 L (2-4) % Baso % (Auto) 1.3 (0-2) % Neut # (Auto) 6100 (6206-6602) /uL Lymph # (Auto) 3400 (4455-1020) /uL [place] # (Auto) 700 (0-900) /uL Eos # (Auto) 200 (0-450) /uL Baso # (Auto) 100 (0-100) /uL Sodium 137 (137-145) mmol/L Potassium 3.4 (3.4-5.1) mmol/L Chloride 105 (98-107) mmol/L Carbon Dioxide 23 (22-32) mmol/L BUN 8 (7-17) mg/dL Creatinine 0.56 (0.52-1.04) mg/dL Estimated GFR > 60 (>60) mL/min BUN/Creatinine Ratio 14.3 (6-22) Glucose 98 (70-100) mg/dL Calcium 9.1 (8.4-10.2) mg/dL Imaging Data US - SEAT TRIMMER: Radiologist's Impression: PROCEDURE:? US PELVIC COMPLETE ? INDICATIONS:? VAGINAL HEMORRHAGE 2 WEEKS POST ? TECHNIQUE:? Real-time scanning was performed of the pelvic organs, with image documentation.? Additional endovaginal scanning was necessary due to incomplete visualization of the adnexal and endometrial structures by transabdominal scanning.? ? COMPARISON:? [facility], PELVIC COMPLETE, 01/21/2013, 15:18. ? FINDINGS:? ?? Uterus:? Uterus is anteverted and there is 12.3 x 7.2 x 8.3 cm. The myometrium is heterogeneous.. ? The endometrium measures 39.1 mm combined thickness.? Vascularity is visualized within the endometrium. ? Ovaries:? The ovaries are not visualized. ? Other:? No pathologic free abdominal or pelvic fluid. ? ? IMPRESSION:? Markedly thickened, vascular endometrium consistent with retained products of conception. MDM Narrative Medical decision making narrative: H&H is actually improved today compared to when she was discharged from the hospital. She was not tachycardic. Not hypotensive. She is Rh positive. Ultrasound does show findings that are consistent with retained products of conception. I did discuss the case with Dr. Win on-call for scientific software engineer who will admit the patient for D&C. Discussed the need for admission with the patient. She expressed understanding and agreement. Discharge Plan Departure Patient Disposition: Admitted As Inpatient Clinical Impression: Retained products of conception Admit Date/Time: 05/07/23 00:03 Admit Provider: Salina Win
[2023-05-07] VITALS (23 sets, daily range): BP systolic 87–124; BP diastolic 27–77; PULSE 66–98; RESP 11–147; TEMP 35.9–36.9; O2SAT 95–100; BMI 42.1
--- NOTE | 2023-05-07 | PATH_ITS ---
[facility] Accession Number: [id number] No. of containers..01 Tissue . 01 Material submitted: . endometrium - UTERINE CONTENTS . 01 Diagnosis: Uterine Contents: Scant fragments of degenerated/fibrotic chorionic villi. Multiple hyalinized foci consistent with placental site nodule. Fragments of smooth muscle tissue, consistent with myometrium, inflamed endocervical mucosa, and endometrium basalis. MRV 05/21/2023 1543 Local . 01 Electronically signed: . Isa Shaikh MD, Pathologist NPI- [id number] . 01 Gross description: . The specimen is received in formalin labeled with the patient's name, , and uterine contents, and consists of multiple cole soft tissue fragments admixed with hemorrhagic material aggregating to 10.3 x 4.7 x 1.5 cm. Riprap Placing Supervisor sections to include all cole soft tissue and welding equipment sales representative hemorrhagic material are submitted in cassettes A1-A7. ([id number]) /FRR 05/20/2023 1534 Local . 01 Pathologist provided ICD-10: O03.9 . 01 CPT . 574381 Specimen Comment: A courtesy copy of this report has been sent to [phone] Performed at: 01 [facility] [address], [place], [place] [id number] MD Wilmer Garcia MD Phone: [phone]
[2023-05-07] MEDS: miSOPROStoL 200 MCG TABLET 400 MCG PO (01:44)
[2023-05-07] MEDS: KETOROLAC 30 MG/ML VIAL IV ×3 (01:45→15:18)
[2023-05-07] MEDS: LACTATED RINGERS 1,000 ML 125 ML IV (02:30)
--- NOTE | 2023-05-07 06:30 | PM.PREOP ---
Pre-operative Note COVID-19 Criteria for continued procedure: Expected advancement of disease process Interval Note History & Physical reviewed/Exam performed by Physician: Yes Changes to H&P: No
--- NOTE | 2023-05-07 06:33 | P.HPOB_ITS ---
History of Present Illness History of Present Illness Reason for admission: other (Retained placental fragment) Narrative: Chloé Ortiz is a 27 year old female admitted for bleeding 2 weeks with ultrasound showing retained placental fragment [facility] Medical History ADHD Anxiety Bipolar disorder Depression pericardial effusion Spontaneous vaginal delivery Two vessel umbilical cord in [place] , antepartum Uterine inversion Surgical History Anesthesia H/O dilation and curettage History of ERCP History of tonsillectomy Status post cholecystectomy (~12/2019) Family History Mother Ovarian cancer Pre-diabetes History of heart disease Hyperlipidemia Hypertension Stroke Grandfather Colon cancer Diabetes mellitus Grandmother Diabetes mellitus Father Diabetes mellitus Hypertension Family/Other Diabetes mellitus Social History marital status: unmarried,single number of children: 1 household members: significant other lives independently: Yes caregiver/support person: Yes housing: other (mobile home) pets and animals: No education level: high school occupational status: employed (works in a [employer]) current occupational exposures/hazards: No special angelica needs: No travel history: over 6 months ago seatbelt use: always water heater temp set < 120 deg: Yes working smoke detector in home: Yes fire extinguisher in home: Yes carbon monox detector in home: Yes firearms in home: No do you feel safe at home: Yes Smoking Status: Current every day smoker Tobacco: How many years used: 13 (off and on, sometimes quit for years at a time) second hand exposure: No alcohol intake: former substance use type: marijuana during the past year weight has: increased > 10 lbs well-balanced diet: about half the time daily servings fruits/ve-4 caffeine: Yes Type(s) of exercise: none Meds Home Medications and Allergies Home Medications Medication Instructions Recorded Confirmed Type prenat.vits,dayton,cad-qqie-vavme 1 tab PO DAILY #90 tabs 01/26/23 05/07/23 Rx acetaminophen 325 mg tablet 650 mg PO Q6HR PRN Pain, Mild 04/24/23 05/07/23 Rx (1-3) #30 tabs docusate sodium 100 mg capsule 100 mg PO DAILY #30 caps 04/24/23 05/07/23 Rx ibuprofen 600 mg tablet 600 mg PO Q6HR PRN Pain, Mild 04/24/23 05/07/23 Rx (1-3) #30 tabs Allergies Allergy/AdvReac Type Severity Reaction Status Date / Time adhesive Allergy Mild Hives Verified 04/17/23 10:31 Latex, Natural Rubber Allergy Mild Swelling, Verified 04/17/23 10:31 Localized Blisters Review of Systems Review of Systems Narrative: Patient denies headaches, scotomata, epigastric pain. She is breast-feeding without difficulty. No fevers. Patient has just intermittently had large gushes of bleeding followed by decrease in bleeding. Exam Vital Signs (past 8 hours): - 05/06/23 23:07 05/06/23 23:07 05/06/23 23:30 Temperature 98.1 F Pulse Rate 88 86 Respiratory Rate 18 Blood Pressure 139/77 137/65 Pulse Oximetry 98 99 Oxygen Delivery Method Room Air Room Air Oxygen Flow Rate 05/06/23 23:30 05/07/23 00:42 05/07/23 02:10 Temperature 96.6 F L Pulse Rate 87 81 Respiratory Rate 18 Blood Pressure 124/72 Pulse Oximetry 98 Oxygen Delivery Method Room Air Room Air Oxygen Flow Rate 96 05/07/23 04:00 Temperature 97.3 F L Pulse Rate 67 Respiratory Rate 20 Blood Pressure 119/60 Pulse Oximetry 98 Oxygen Delivery Method Oxygen Flow Rate 0 Oxygen Delivery Method Room Air Oxygen Flow Rate 0 Narrative Exam Narrative: HEENT exam within normal limits. Lungs are clear to auscultation percussion. Heart is regular rate and rhythm no S3-S4 murmurs. Abdomen is soft, nontender. Currently mild lochia. Extremities without edema and nontender. Consent form for D&C reviewed with the patient. Minimal risk of reaction to medication or anesthesia, infection, scar tissue in the uterus that may cause pain or difficulty conceiving, perforation of the uterus that may damage to internal structures such as bowel, bladder, ureters that may require opening the abdomen to repair or additional surgery, continued bleeding despite removal of the placenta fragment. Consent form signed and questions answered. Objective Imaging US - abdomen: Radiologist's impression: Thickened endometrium, 3.9 cm with increased blood flow suggestive retained placental fragment Labs 05/06/23 23:20 05/06/23 23:20 Labs: Laboratory Results - last 24 hr 05/06/23 05/06/23 23:20 23:20 WBC 10.5 RBC 3.88 L Hgb 11.1 L Hct 32.8 L MCV 84.6 MCH 28.7 MCHC 33.9 RDW 13.4 Plt Count 331 Neut % (Auto) 58.2 Lymph % (Auto) 32.4 [place] % (Auto) 6.6 Eos % (Auto) 1.5 L Baso % (Auto) 1.3 Neut # (Auto) 6100 Lymph # (Auto) 3400 [place] # (Auto) 700 Eos # (Auto) 200 Baso # (Auto) 100 Sodium 137 Potassium 3.4 Chloride 105 Carbon Dioxide 23 BUN 8 Creatinine 0.56 Estimated GFR > 60 BUN/Creatinine Ratio 14.3 Glucose 98 Calcium 9.1 Assessment & Plan Assessment and plan (1) Retained products of conception: Status: Acute Assessment & Plan narrative: Patient with retained placental fragment on ultrasound done for intermittent significant vaginal bleeding 2 weeks . Patient will undergo D&C with likely discharge after procedure.
[2023-05-07] MEDS: LACTATED RINGERS 1,000 ML 42 ML IV (06:53)
[2023-05-07] MEDS: ALBUTEROL/IPRATROPIUM 3 ML AMPUL INH (07:06)
[2023-05-07] MEDS: CEFAZOLIN 2 GM/100 ML PREMIX 100 ML IV (07:20)
--- NOTE | 2023-05-07 07:28 | SUR.OPER ---
Lithotomy on padded OR bed, head on pillow, arms secured on padded arm boards at <90 degrees abduction. Legs secured in padded yellow fins stirrups.
--- NOTE | 2023-05-07 07:54 | PM.OP.1 ---
Operative Date/Time/Diagnoses Date of procedure: 05/07/23 Time of procedure: 07:54 Pre-op diagnosis: Retained placenta fragment Post-op diagnosis: same Procedure & Clinicians Procedure: D&C Same procedure as scheduled: Yes Indications: bleeding with retained placenta fragment Surgeon: Salina Win Click Yes if Unassisted: Yes Anesthesia Type: General Operative Notes Findings: Retained placenta fragments Closure Type: not applicable Specimen(s): other (Uterine contents) Estimated Blood Loss (mL): 200 Blood products transfused: none Procedure in detail: Patient was brought to the operating room where she was placed in low Yellofin stirrups and prepped and draped in the usual sterile fashion. 2 g of Ancef were in prior to beginning the case. A check system was reviewed with staff in the room prior to beginning the case. Warming was with blankets. Pulsatile stockings in place and functional. A speculum was placed in the vagina. A single-tooth tenaculum placed placed on the anterior lip of the cervix. The cervix was already dilated to past a #10 Hegar dilator. Sharp curettings were performed until all retained products were removed. Patient had continued bleeding. She received Methergine in the OR. She was taken to the recovery room in stable condition. Counts of instruments and sponges were correct. Complications: none Post-operative Condition: stable Disposition: observation Plan for aftercare: Monitor for decreased bleeding than home once awake and stable
[2023-05-07] MEDS: ONDANSETRON 4 MG/2 ML INJ IV (08:04)
[2023-05-07] MEDS: OXYCODONE IR 5 MG TABLET PO ×2 (08:41→15:18)
--- NOTE | 2023-05-07 08:42 | CM.DANOTE ---
DCP Brief Assessment Note: Patient is a 27yo female here two weeks here for a D&C. PCP Mary Rodriguez Payer [employer] and Medicaid Patient was moved to prior to being seen by CERTIFIED NURSE AIDE. CERTIFIED NURSE AIDE reviewed EMR and did chart review for current assessment. Per chart, patient lives with mother Viridiana ([phone]). Per chart, patient appears active/independent. Per H&P and operative note, patient likely to d/c today post procedure. No needs identified at this time. CM team will continue to follow as needed. Plan: patient will likely d/c home with family when medically stable. No needs at this time. CM team will continue to follow as needed. STAN Carcamo Discharge Planning/Care Management CM Discharge Assessment Start: 05/07/23 08:38 Freq: Status: Active Protocol: Document 05/07/23 08:39 (Rec: 05/07/23 08:42 [email or web address]) Discharge Planning Assessment Assigned Exercise Instruct STAN Galloway DPOA/Assigned Designee Name Viridiana Viveros (mother) Contact Information [phone] Advance Directives? No History Provided By Patient,Medical Record Household Members family Discharge Plan Home Whiteboard Updated in Patient Room with No name and ext. # of Exercise Instruct Review Status In Process Next Review Type Continued Stay Review
[2023-05-07 09:12] LABS: Add Manual Diff / Slide Review NO; Basophils Absolute Auto 0 /uL (0-100); Basophils Percent Auto 0.3 % (0-2); Eosinophils Absolute Auto 100 /uL (0-450); Eosinophils Percent Auto 0.8 % (2-4); Hematocrit 26.6 % (36-46); Lymphocytes Absolute Auto 2200 /uL (1100-4500); Lymphocytes Percent Auto 20.9 % (25-40); Mean Corpuscular HGB Conc 33.7 % (30-36); Mean Corpuscular Volume 86.2 fL (80-100); Monocytes Absolute Auto 300 /uL (0-900); Monocytes Percent Auto 2.7 % (3-14); Neutrophils Absolute Auto 8100 /uL (1500-7000); Neutrophils Percent Auto 75.3 % (50-75); Platelet Count 308 X10^3/uL (150-400); Red Blood Cell Count 3.08 X10^6/uL (4.0-5.2); Red Cell Distribution Width 13.2 % (11.6-14.8); White Blood Cell Count 10.7 X10^3/uL (4.5-11.0)
[2023-05-07 09:24] LABS: INR 1.1 (0.9-1.3); Prothrombin Time 12.2 SECONDS (10.1-12.7)
[2023-05-07 09:26] LABS: PTT Partial Thromboplastin Tim 29 SECONDS (26-36)
--- NOTE | 2023-05-07 09:30 | SUR.PHASEI ---
Pt was brought to PACU at approx. 0748. Pt was alert and oriented with VSS. Pt reported gushes between her legs and was found to have a large amount of sanguinous fluid drainage. Dr. Win was brought to the bedside. Cytotec and transexemic acid were administered. Pt continued to be held in PACU until bleeding was better controlled. She had multiple episodes of bed changes r/t sanguinous drainage. Dr. Win was kept informed and came to the bedside again within 20 mins of first visit. This nurse reported to Dr. Win that pt was now passing mostly large clots. At 0910 pt was passing few to no clots and Dr. Win ok'd her transfer to [facility] for further monitoring. Report was called and provided to PREET Rodriguez.
[2023-05-07 09:42] LABS: Fibrinogen 259 mg/dL (211-428)
--- NOTE | 2023-05-07 09:43 | PC.NURSE ---
Addendum entered by Jennifer An R.N. 05/07/23 17:08: 1630- OBGYN at the bedside. 1650- discharge instructions given and went over. Pt verbalized understanding. All questions answered at this time Addendum entered by Jennifer An R.N. 05/07/23 16:09: 1340- [t ambulated to the bathroom, tolerated well. Awaiting to be seen by Dr. Win for D/C home. Addendum entered by Jennifer An R.N. 05/07/23 12:34: 1030-fundus firm @ U-3, scant bleeding. VSS 1100- fundus firm @ U-3, scant bleeding. VVS. 1200- pt resting, unlabored breathing. no complaints at this time Addendum entered by Jennifer An R.N. 05/07/23 10:12: 1000- fundus firm @ U -3, scant bleeding. VSS Original Note: 0923- pt arrived on L& D unit. A&O x4. Bleeding assessed. Fundus firm @ U-3. Scant bleeding. No abnormal odor, lochia WNL. Paula pad changed at this time. Assessment WNL 0945- Fundus firm @ u-3/ scant bleeding. lochia wnl.
--- NOTE | 2023-05-07 09:47 | PM.PNPO.1 ---
Subjective Subjective Date Patient Seen: 05/07/23 Time Patient Seen: 09:30 Interval history: Postop D&C for retained placenta fraction Exam Vital Signs (past 8 hours): - 05/07/23 02:10 05/07/23 04:00 05/07/23 06:47 Temperature 96.6 F L 97.3 F L 97.6 F Pulse Rate 81 67 74 Respiratory Rate 20 16 Blood Pressure 124/72 119/60 109/71 Pulse Oximetry 98 97 Oxygen Delivery Method Room Air Oxygen Flow Rate 96 0 05/07/23 07:48 05/07/23 07:52 05/07/23 08:18 Temperature 98.4 F 98.4 F Pulse Rate 77 71 69 Respiratory Rate 12 14 11 L Blood Pressure 87/27 L 104/43 L 101/49 L Pulse Oximetry 98 98 99 Oxygen Delivery Method Room Air Room Air Room Air Oxygen Flow Rate 05/07/23 08:22 05/07/23 08:26 05/07/23 08:42 Temperature 97.6 F Pulse Rate 68 70 76 Respiratory Rate 14 14 16 Blood Pressure 100/42 L 103/44 L 117/39 L Pulse Oximetry 98 97 96 Oxygen Delivery Method Room Air Room Air Room Air Oxygen Flow Rate 05/07/23 07:58 05/07/23 08:02 05/07/23 08:07 Temperature Pulse Rate 98 H 66 81 Respiratory Rate 13 14 15 Blood Pressure 113/77 111/58 L 108/60 Pulse Oximetry 100 100 99 Oxygen Delivery Method Room Air Room Air Room Air Oxygen Flow Rate 05/07/23 08:13 05/07/23 08:32 05/07/23 08:37 Temperature Pulse Rate 67 97 H 76 Respiratory Rate 14 11 L 147 H Blood Pressure 107/43 L 102/53 L 113/46 L Pulse Oximetry 95 100 96 Oxygen Delivery Method Room Air Room Air Room Air Oxygen Flow Rate 98 05/07/23 08:52 05/07/23 09:06 05/07/23 09:25 Temperature 97.0 F L Pulse Rate 75 77 80 Respiratory Rate 14 14 18 Blood Pressure 113/49 L 104/56 L 110/57 L Pulse Oximetry 100 99 97 Oxygen Delivery Method Room Air Room Air Oxygen Flow Rate Oxygen Delivery Method Room Air Oxygen Flow Rate 98 Narrative Exam Narrative: Patient initially postoperative had significant bleeding. She received Methergine in the operating room, rectal Cytotec, TXA in the recovery room. The patient had approximately a 1000 cc blood loss prior to eventual decrease in bleeding. Objective Labs 05/07/23 09:00 05/06/23 23:20 Labs: Laboratory Results - last 24 hr 05/06/23 05/06/23 05/07/23 23:20 23:20 09:00 WBC 10.5 10.7 RBC 3.88 L 3.08 L Hgb 11.1 L 9.0 L Hct 32.8 L 26.6 L MCV 84.6 86.2 MCH 28.7 29.0 MCHC 33.9 33.7 RDW 13.4 13.2 Plt Count 331 308 Neut % (Auto) 58.2 75.3 H Lymph % (Auto) 32.4 20.9 L Falls % (Auto) 6.6 2.7 L Eos % (Auto) 1.5 L 0.8 L Baso % (Auto) 1.3 0.3 Neut # (Auto) 6100 8100 H Lymph # (Auto) 3400 2200 Falls # (Auto) 700 300 Eos # (Auto) 200 100 Baso # (Auto) 100 0 PT INR APTT Fibrinogen Sodium 137 Potassium 3.4 Chloride 105 Carbon Dioxide 23 BUN 8 Creatinine 0.56 Estimated GFR > 60 BUN/Creatinine Ratio 14.3 Glucose 98 Calcium 9.1 05/07/23 09:00 WBC RBC Hgb Hct MCV MCH MCHC RDW Plt Count Neut % (Auto) Lymph % (Auto) Falls % (Auto) Eos % (Auto) Baso % (Auto) Neut # (Auto) Lymph # (Auto) Falls # (Auto) Eos # (Auto) Baso # (Auto) PT 12.2 INR 1.1 APTT 29 Fibrinogen 259 Sodium Potassium Chloride Carbon Dioxide BUN Creatinine Estimated GFR BUN/Creatinine Ratio Glucose Calcium [facility] Medical History ADHD Anxiety Bipolar disorder Depression pericardial effusion Spontaneous vaginal delivery Two vessel umbilical cord in [place] , antepartum Uterine inversion Surgical History Anesthesia H/O dilation and curettage History of ERCP History of tonsillectomy Status post cholecystectomy (~12/2019) Family History Mother Ovarian cancer Pre-diabetes History of heart disease Hyperlipidemia Hypertension Stroke Grandfather Colon cancer Diabetes mellitus Grandmother Diabetes mellitus Father Diabetes mellitus Hypertension Family/Other Diabetes mellitus Social History marital status: unmarried,single number of children: 1 household members: family lives independently: Yes caregiver/support person: Yes housing: other (mobile home) pets and animals: No education level: high school occupational status: employed (works in a [employer]) current occupational exposures/hazards: No special angelica needs: No travel history: over 6 months ago seatbelt use: always water heater temp set < 120 deg: Yes working smoke detector in home: Yes fire extinguisher in home: Yes carbon monox detector in home: Yes firearms in home: No do you feel safe at home: Yes Smoking Status: Current every day smoker Tobacco: How many years used: 13 (off and on, sometimes quit for years at a time) second hand exposure: No alcohol intake: former substance use type: marijuana during the past year weight has: increased > 10 lbs well-balanced diet: about half the time daily servings fruits/ve-4 caffeine: Yes Type(s) of exercise: none Assessment & Plan Post-op Postoperative Procedures: Procedures Operation Date: 05/07/23 07:00 Actual Procedure Side Surgeon p Dilation and Curettage (not suction) Salina Win MD Postoperative day: 0 Postoperative status narrative: Postoperative bleeding finally seems to be under control. Postoperative plan narrative: Patient will be monitored for bleeding and response to blood loss. Type and cross performed. Time Spent With Patient Time with patient: 25 - 35 minutes Quality VTE Deep Vein Thrombosis/Pulmonary Embolism Present on Admission: No
[2023-05-07] MEDS: METOCLOPRAMIDE 10 MG/2 ML INJ IV (09:58)
[2023-05-07] MEDS: HYDROMORPHONE 1 MG INJ IV (11:13)
--- NOTE | 2023-05-07 11:26 | PC.NURSE ---
0.5mg IV Dilaudid given, slow ivp for pain of 7/10. Fundus firm, scant bleeding. Dr. Win at bedside. Bp 103/44, P-81, RR 16.
--- NOTE | 2023-05-07 16:37 | P.DS_ITS ---
History of Present Illness History of Present Illness Date Patient Seen: 05/07/23 Time Patient Seen: 16:37 Date of Onset of Symptoms: 05/06/23 Chief complaint: Vaginal hemorrhage Narrative: Patient is 2 weeks with delayed hemorrhage from retained placenta fragment who underwent a D&C on 05/06/2023 Discharge Providers Provider Date of admission: 05/07/23 00:03 Discharge Date: 05/07/23 Primary care physician: Mary Rodriguez DO Discharge provider: Salina Win MD Summary Hospital Course Discharge Diagnosis: Late hemorrhage from retained placenta fragments Acute blood loss anemia Hospital Course: Patient was evaluated in the emergency room for hemorrhage 2 weeks post vaginal delivery with manual removal of placenta. She was found to have a 3 cm mass in the uterus consistent with retained placenta. Patient was taken to the operating room where she underwent a uterine curettage. Patient has significant hemorrhage post surgery from uterine atony. Eventually responded to Cytotec, Methergine, TXA. The patient had significant cramping after the procedure which now is under control. The patient was able to ambulate with only minimal feelings of lightheadedness. Patient has minimal bleeding at this time. No evidence of infection. Status at Discharge Cognitive/behavioral status at discharge: oriented Functional status at discharge: independent ambulation Overall status at discharge: patient is progressing back to baseline Time Spent with Patient Time spent: Less than 30 minutes Exam Vital Signs (past 8 hours): - 05/07/23 08:42 05/07/23 08:52 05/07/23 09:06 Temperature Pulse Rate 76 75 77 Respiratory Rate 16 14 14 Blood Pressure 117/39 L 113/49 L 104/56 L Pulse Oximetry 96 100 99 Oxygen Delivery Method Room Air Room Air Room Air 05/07/23 09:25 05/07/23 10:00 05/07/23 10:30 Temperature 97.0 F L 98.0 F Pulse Rate 80 72 70 Respiratory Rate 18 16 Blood Pressure 110/57 L 95/33 L 102/27 L Pulse Oximetry 97 98 Oxygen Delivery Method 05/07/23 11:20 05/07/23 13:40 05/07/23 16:00 Temperature 98.0 F Pulse Rate 68 81 70 Respiratory Rate 18 19 19 Blood Pressure 103/44 L 106/67 103/68 Pulse Oximetry 99 98 Oxygen Delivery Method Oxygen Delivery Method Room Air Oxygen Flow Rate 98 Narrative Exam Narrative: Abdomen is soft, nontender. Uterus is firm, U-2, minimally tender. Mild lochia. Extremities without edema and nontender. Objective Labs 05/07/23 09:00 05/06/23 23:20 Labs: Laboratory Results - last 24 hr 05/06/23 05/06/23 05/06/23 23:20 23:20 23:20 WBC 10.5 RBC 3.88 L Hgb 11.1 L Hct 32.8 L MCV 84.6 MCH 28.7 MCHC 33.9 RDW 13.4 Plt Count 331 Neut % (Auto) 58.2 Lymph % (Auto) 32.4 [place] % (Auto) 6.6 Eos % (Auto) 1.5 L Baso % (Auto) 1.3 Neut # (Auto) 6100 Lymph # (Auto) 3400 [place] # (Auto) 700 Eos # (Auto) 200 Baso # (Auto) 100 PT INR APTT Fibrinogen Sodium 137 Potassium 3.4 Chloride 105 Carbon Dioxide 23 BUN 8 Creatinine 0.56 Estimated GFR > 60 BUN/Creatinine Ratio 14.3 Glucose 98 Calcium 9.1 Blood Type O Positive Antibody Screen Positive Antibody Identification Anti-E 05/07/23 05/07/23 09:00 09:00 WBC 10.7 RBC 3.08 L Hgb 9.0 L Hct 26.6 L MCV 86.2 MCH 29.0 MCHC 33.7 RDW 13.2 Plt Count 308 Neut % (Auto) 75.3 H Lymph % (Auto) 20.9 L [place] % (Auto) 2.7 L Eos % (Auto) 0.8 L Baso % (Auto) 0.3 Neut # (Auto) 8100 H Lymph # (Auto) 2200 [place] # (Auto) 300 Eos # (Auto) 100 Baso # (Auto) 0 PT 12.2 INR 1.1 APTT 29 Fibrinogen 259 Sodium Potassium Chloride Carbon Dioxide BUN Creatinine Estimated GFR BUN/Creatinine Ratio Glucose Calcium Blood Type Antibody Screen Antibody Identification PENDING SALE TO [facility] Medical History ADHD Anxiety Bipolar disorder Depression pericardial effusion Spontaneous vaginal delivery Two vessel umbilical cord in [place] , antepartum Uterine inversion Surgical History Anesthesia H/O dilation and curettage History of ERCP History of tonsillectomy Status post cholecystectomy (~12/2019) Family History Mother Ovarian cancer Pre-diabetes History of heart disease Hyperlipidemia Hypertension Stroke Grandfather Colon cancer Diabetes mellitus Grandmother Diabetes mellitus Father Diabetes mellitus Hypertension Family/Other Diabetes mellitus Social History marital status: unmarried,single number of children: 1 household members: family lives independently: Yes caregiver/support person: Yes housing: other (mobile home) pets and animals: No education level: high school occupational status: employed (works in a [employer]) current occupational exposures/hazards: No special angelica needs: No travel history: over 6 months ago seatbelt use: always water heater temp set < 120 deg: Yes working smoke detector in home: Yes fire extinguisher in home: Yes carbon monox detector in home: Yes firearms in home: No do you feel safe at home: Yes Smoking Status: Current every day smoker Tobacco: How many years used: 13 (off and on, sometimes quit for years at a time) second hand exposure: No alcohol intake: former substance use type: marijuana during the past year weight has: increased > 10 lbs well-balanced diet: about half the time daily servings fruits/ve-4 caffeine: Yes Type(s) of exercise: none Discharge Assessment & Plan Assessment and Plan Assessment: Delayed hemorrhage from retained placenta fragment who underwent D&C. Acute blood loss anemia. Plan of Treatment: Patient is discharged home to be followed up with her primary OB provider Dr. Ridley in 1 week. Precautions for signs of infection or heavy bleeding reviewed with the patient. Patient states she has a iron prescription already at the pharmacy for her. She will take Motrin Tylenol and oxycodone as needed for p ain. Discharge Plan Discharge Plan Patient Disposition: Home Discharge orders & Medications Prescriptions: New oxycodone 5 mg tablet 5 mg PO Q4H PRN (Reason: pain) Qty: 20 0RF Continued prenat.vits,dayton,[id number] Tablet 1 tab PO DAILY Qty: 90 3RF acetaminophen 325 mg Tablet 650 mg PO Q6HR PRN (Reason: Pain, Mild (1-3)) Qty: 30 0RF docusate sodium 100 mg Capsule 100 mg PO DAILY Qty: 30 0RF ibuprofen 600 mg Tablet 600 mg PO Q6HR PRN (Reason: Pain, Mild (1-3)) Qty: 30 0RF Follow up/Referrals: Portia Ridley MD [Physician] - 1 Week Mary Rodriguez DO [Primary Care Provider] - Diet/Activity/Treatments Diet: Regular Activity: Nothing in vagina until 6 weeks Skin/Wound/Dressing Care Report to your healthcare provider any signs of infection, such as:: chills, fever and increased pain Discharge Data Primary Care Provider: Mary Rodriguez Attending Provider: Salina Win Admit Date/Time: 05/07/23 00:03 Quality VTE Deep Vein Thrombosis/Pulmonary Embolism Present on Admission: No
== END 2023-05-07 17:35 | disposition home or self-care (01) ==
LOC: ED 23:42 → AC 05-07 00:12 → LABOR 05-07 08:57 → AC 05-07 11:00
PROVIDERS: Admitting Provider Specialist; Emergency Provider Emergency Medicine; PCP Family Medicine; Referring Provider Emergency Medicine; Visit Provider Specialist
PROC: (CPT 58120; principal; 2023-05-07 07:00)
DX: O72.2 Delayed and secondary postpartum hemorrhage (principal); D62 Acute posthemorrhagic anemia
CPT/HCPCS: 59160; 36415; 76830; 76856; 80048; 85025; 85384; 85610; 85730; 86850; 86870; 86900; 86901; 99284; G0378; J0690; J1100; J1170; J1885; J2405; J2704; J2765; J3010; S0191

== ENCOUNTER → 2023-11-09 13:28 | Outpatient (CLI) | payer OTHER, MEDICAID, SELFPAY ==
[2023-09-29 09:48] VITALS: BMI 42.1
[2023-11-09 14:46] LABS: HCG Quantitative /Beta subunit 23544 mIU/mL
== END ==
PROVIDERS: PCP Family Medicine; Referring Provider Family Medicine; Visit Provider Family Medicine
DX: Z34.90 Encounter for supervision of normal pregnancy, unspecified, unspecified trimester (principal)
CPT/HCPCS: 36415; 84702

== ENCOUNTER → 2023-12-29 06:46 | Outpatient (CLI) | payer OTHER, MEDICAID, SELFPAY ==
[2023-09-29 09:48] VITALS: BMI 42.1
--- NOTE | 2023-12-29 06:48 | DI.US.S_ITS ---
PROCEDURE: US PELVIC COMPLETE INDICATIONS: BLEEDING POST MEDICAL TECHNIQUE: Real-time scanning was performed of the pelvic organs, with image documentation. Additional endovaginal scanning was necessary due to incomplete visualization of the adnexal and endometrial structures by transabdominal scanning. COMPARISON: [facility], US, US PELVIC COMPLETE, 05/06/2023, 23:25. FINDINGS: Uterus: Uterus is anteverted and normal in size at 6.9 x 4.2 x 5.3 cm. The myometrium is homogeneous. The endometrium measures 13.7 mm combined thickness. Ill-defined heterogeneous region within the endometrial complex with increased vascularity measuring 1 x 1 x 1.5 cm. Ovaries: The right ovary measures 1.7 x 2.2 x 1.3 cm, with a calculated ovarian volume of 2.4 cc. The left ovary measures 2.9 x 1.8 x 2 cm, with a calculated ovarian volume of 5.4 cc. The ovaries have a normal sonographic appearance. Anechoic simple cyst measuring 1.3 x 1.5 x 1.1 cm in the right ovary. Less than 12 follicles can be seen in each ovary. No adnexal masses are seen. Other: No pathologic free abdominal or pelvic fluid. IMPRESSION: 1. Ill-defined heterogeneous region within the endometrial complex with increased vascularity with increased vascularity measuring 1 x 1 x 1.5 cm highly suspicious for retained products of conception. 2. Normal sonographic appearance of the bilateral ovaries. Dictated by: Suzy Resendiz M.D. on 12/29/2023 at 11:18 Approved by: Suzy Resendiz M.D. on 12/29/2023 at 11:27
== END ==
LOC: US 06:47
PROVIDERS: PCP Family Medicine; Referring Provider Family Medicine; Visit Provider Family Medicine
DX: N93.9 Abnormal uterine and vaginal bleeding, unspecified (principal)
CPT/HCPCS: 76830; 76856

== ENCOUNTER 2023-12-29 14:36 | Observation (INO) | payer OTHER, MEDICAID, SELFPAY ==
[2023-09-29 09:48] VITALS: BMI 42.1
--- NOTE | 2023-12-29 | PATH_ITS ---
[facility] Accession Number: [id number] No. of containers..01 Tissue . 01 Material submitted: . product of conception - PRODUCTS OF CONCEPTION . 01 Diagnosis: PRODUCTS OF CONCEPTION: Rare fibrotic chorionic villi present. Background decidualized endometrium with features of exaggerated placental site. No significant plasma cell infiltrate identified. No significant atypia or proliferation identified. Negative for malignancy. R 01/07/2024 1507 Local . 01 Comment: As part of routine quality system manager, Dr. Reeves has reviewed this case and agrees with the interpretation above. . 01 Electronically signed: . Jens Pantoja MD, PhD, Pathologist NPI- [id number] . 01 Gross description: . Received in formalin with two identifiers and products of conception, are multiple cole spongy to membranous soft tissue fragments admixed with hemorrhagic material aggregating to 2.9 x 2.1 x 0.2 cm. Filtered and submitted entirely in A1-A2. ([id number]) /MRV 12/31/2023 1441 Local . 01 Microscopic: . A GMS stain is negative for Actinomyces species. A control stain shows appropriate reactivity. . 01 Pathologist provided ICD-10: O73.1 . 01 CPT . 478120, [id number] Specimen Comment: A courtesy copy of this report has been sent to [facility] Performed at: 01 [facility] [address] [place] [address] [address], [place], [place] [id number] MD Wilmer Garcia MD Phone: [phone]
[2023-12-29 14:44] VITALS: BP 123/68; PULSE 90; RESP 18; TEMP 36.8; O2SAT 99; BMI 36.3
[2023-12-29 15:21] LABS: Add Manual Diff / Slide Review NO; Basophils Absolute Auto 100 /uL (0-100); Basophils Percent Auto 0.7 % (0-2); Eosinophils Absolute Auto 100 /uL (0-450); Eosinophils Percent Auto 1.2 % (2-4); Hematocrit 45.7 % (36-46); Hemoglobin 15.1 g/dL (12.0-16.0); Lymphocytes Absolute Auto 3100 /uL (1100-4500); Lymphocytes Percent Auto 36.8 % (25-40); Mean Corpuscular HGB Conc 32.9 % (30-36); Mean Corpuscular Hemoglobin 27.4 PG (26-34); Mean Corpuscular Volume 83.3 fL (80-100); Monocytes Absolute Auto 700 /uL (0-900); Monocytes Percent Auto 7.9 % (3-14); Neutrophils Absolute Auto 4500 /uL (1500-7000); Neutrophils Percent Auto 53.4 % (50-75); Platelet Count 274 X10^3/uL (150-400); Red Blood Cell Count 5.49 X10^6/uL (4.0-5.2); Red Cell Distribution Width 17.4 % (11.6-14.8); White Blood Cell Count 8.5 X10^3/uL (4.5-11.0)
--- NOTE | 2023-12-29 15:22 | PC.NURSE ---
Pt took pill 6 weeks ago and states that she has been bleeding for 4 weeks and having lower abd/pelvic pain. Pt reports that she has been having blood on the toilet paper when she wipes. Pt had US done today that was ordered by pt's insole buffer, Dr Ridley. Pt called provider's office about results and RN told pt to come to the ED but could not give official results. Pt also states that she has retained something from every she has had including placenta after her last child was born in 07/2024. Pt a&ox4. VS WNL. Skin is pink warm and dry.
--- NOTE | 2023-12-29 15:42 | ED_ITS ---
HPI - Female Genitourinary General Chief complaint: Vaginal Bleeding Stated complaint: sent by pcp, abnormality on ultrasound Time Seen by Provider: 12/29/23 15:35 Source: patient Mode of arrival: Ambulatory History of Present Illness HPI Narrative: Patient sent here for abnormal ultrasound results that was done outpatient. This was ordered by primary care doctor anton, patient is A1. History of D and C in the past for miscarriage as well as retained placenta. Patient had back in October. She is date set she bled for 6 days and it resolved. However in the middle of November she started vaginal bleeding again and has not stopped since then. No dizziness no passing out. Pain is controlled. [address] [address] Ultrasound Report Signed Patient: Chloé Ortiz MR#: [id number] : 1995 Acct:[id number] Age/Sex: 28 / F Date of Service: 12/29/23 Loc: Accession Number: [id number] Procedure: US pelvic complete Ordering Provider: Portia Ridley MD PROCEDURE: US PELVIC COMPLETE INDICATIONS: BLEEDING POST MEDICAL TECHNIQUE: Real-time scanning was performed of the pelvic organs, with image documentation. Additional endovaginal scanning was necessary due to incomplete visualization of the adnexal and endometrial structures by transabdominal scanning. COMPARISON: [facility], , US PELVIC COMPLETE, 05/06/2023, 23:25. FINDINGS: Uterus: Uterus is anteverted and normal in size at 6.9 x 4.2 x 5.3 cm. The myometrium is homogeneous. The endometrium measures 13.7 mm combined thickness. Ill-defined heterogeneous region within the endometrial complex with increased vascularity measuring 1 x 1 x 1.5 cm. Ovaries: The right ovary measures 1.7 x 2.2 x 1.3 cm, with a calculated ovarian volume of 2.4 cc. The left ovary measures 2.9 x 1.8 x 2 cm, with a calculated ovarian volume of 5.4 cc. The ovaries have a normal sonographic appearance. Anechoic simple cyst measuring 1.3 x 1.5 x 1.1 cm in the right ovary. Less than 12 follicles can be seen in each ovary. No adnexal masses are seen. Other: No pathologic free abdominal or pelvic fluid. IMPRESSION: 1. Ill-defined heterogeneous region within the endometrial complex with increased vascularity with increased vascularity measuring 1 x 1 x 1.5 cm highly suspicious for retained products of conception. 2. Normal sonographic appearance of the bilateral ovaries. Dictated by: Suzy Resendiz M.D. on 12/29/2023 at 11:18 Approved by: Suzy Resendiz M.D. on 12/29/2023 at 11:27 Related Data Previous Rx's Medication Instructions Recorded acetaminophen 325 mg tablet 650 mg (2 x 325 mg) PO Q6HR PRN 04/24/23 Pain, Mild (1-3) #30 tabs ibuprofen 600 mg tablet 600 mg PO Q6HR PRN Pain, Mild 05/07/23 (1-3) #30 tabs oxycodone 5 mg tablet 5 mg PO Q4H PRN pain #20 tabs 05/07/23 etonogestrel 68 mg subdermal 1 implant subdermal ONCE #1 ea 10/19/23 implant (Nexplanon) dextroamphetamine-amphetamine 15 15 mg PO DAILY #30 tabs 11/10/23 mg tablet ondansetron 4 mg disintegrating 4 mg PO Q8H PRN nausea and 11/10/23 tablet vomiting #30 tabs dextroamphetamine-amphetamine ER 25 mg PO DAILY #30 caps 12/25/23 25 mg 24hr capsule,extend release oxycodone 5 mg tablet 5 mg PO Q6HR PRN pain, severe #7 12/29/23 tabs dextroamphetamine-amphetamine 20 20 mg PO DAILY #30 tabs 12/30/23 mg tablet Allergies Allergy/AdvReac Type Severity Reaction Status Date / Time adhesive Allergy Mild Hives Verified 12/29/23 18:50 Latex, Natural Rubber Allergy Mild Swelling, Verified 12/29/23 18:50 Localized Blisters Review of Systems Review of Systems Narrative: GENERAL: negative chills, fatigue, malaise, fever, sweats. HEENT: negative sinus pain, ear pain, sore throat RESPIRATORY: negative dyspnea, cough CARDIOVASCULAR: negative chest pain, palpitations GASTROINTESTINAL: negative nausea, vomiting, abdominal pain : negative dysuria, frequency, hematuria, positive vaginal bleeding MUSCULOSKELETAL: negative muscle or bony pain SKIN: negative rash, skin lesions NEUROLOGIC: negative weakness, numbness ROS Unobtainable: All systems reviewed & are unremarkable except as noted in HPI and below Patient History Medical History ADHD Uterine inversion pericardial effusion Two vessel umbilical cord in [place] , antepartum Bipolar disorder Anxiety Depression Surgical History Anesthesia History of ERCP Status post cholecystectomy (~12/2019) History of tonsillectomy H/O dilation and curettage Family History Mother Ovarian cancer Pre-diabetes History of heart disease Hyperlipidemia Hypertension Stroke Grandfather Colon cancer Diabetes mellitus Grandmother Diabetes mellitus Father Diabetes mellitus Hypertension Family/Other Diabetes mellitus tobacco type: cigarettes alcohol intake frequency: holidays/special occasions only Substance Use Type: does not use and marijuana Exam Narrative Exam Narrative: GENERAL: in no distress, not toxic not dyspneic HEAD: Normocephalic. EYES: Pupils equal round ENT: Mucous membranes moist. NECK: Trachea midline. CARDIOVASCULAR: Regular rate and rhythm RESPIRATORY: Clear to auscultation. Breath sounds equal bilaterally. No wheezes, rales, or rhonchi. GASTROINTESTINAL: Abdomen soft, non-tender EXTREMITIES: No gross deformities. BACK: No flank tenderness. NEURO: AOx4. SKIN: Warm and dry PSYCH: Not anxious, is cooperative Initial Vital Signs Initial Vital Signs: Vital Signs Temperature 98.3 F 12/29/23 14:44 Pulse Rate 90 12/29/23 14:44 Respiratory Rate 18 12/29/23 14:44 Blood Pressure 123/68 12/29/23 14:44 Pulse Oximetry 99 12/29/23 14:44 Oxygen Delivery Method Room Air 12/29/23 14:44 Course Orders Ordered: Discontinued Medications Albuterol (Albuterol 2.5 Mg/3 Ml Neb (Adult)) 2.5 mg INH NOW PRN PRN Reason: Coughing, Wheezing, Dyspnea Hydromorphone HCl (Hydromorphone 1 Mg Inj) 0 mg IV Q5MIN PRN PRN Reason: Pain, Moderate (4-6) Cefazolin Sodium/Dextrose (Ancef) 100 mls @ 200 mls/hr IV PREOP FRANCISCO Last Admin: 12/29/23 19:14 Dose: 200 mls/hr Documented By: ANDREE Tranexamic Acid 1,000 mg/ (Sodium Chloride) 100 mls @ 200 mls/hr IV INTRA-OP ONE Stop: 12/29/23 19:15 Last Admin: 12/29/23 19:20 Dose: 200 mls/hr Documented By: ANDREE Lactated Ringer's (Lactated Ringers) 1,000 mls @ 42 mls/hr IV CONT FRANCISCO Last Infusion: 12/29/23 20:03 Dose: 42 mls/hr Documented By: Admin: 12/29/23 18:53 Dose: 42 mls/hr Documented By: ROBERT Ondansetron HCl (Ondansetron 4 Mg/2 Ml Inj) 4 mg IV NOW PRN PRN Reason: Nausea And Vomiting Oxycodone HCl (Oxycodone Ir 5 Mg Tablet) 5 mg PO PACUNOW PRN PRN Reason: Mild or moderate pain Last Admin: 12/29/23 20:07 Dose: 5 mg Documented By: ROBERT Oxycodone HCl (Oxycodone Ir 5 Mg Tablet) 5 mg PO Q4HR PRN PRN Reason: Pain, Moderate (4-6) Vital Signs Vital signs: Vital Signs - 8 hr 12/29/23 14:44 Temperature 98.3 F Pulse Rate 90 Respiratory Rate 18 Blood Pressure 123/68 Pulse Oximetry 99 Oxygen Delivery Method Room Air MDM - Female Genitourinary Lab Data 12/29/23 15:12 12/29/23 15:12 Labs: Lab Results 12/29/23 Range/Units 15:12 WBC 8.5 (4.5-11.0) X10^3/uL RBC 5.49 H (4.0-5.2) X10^6/uL Hgb 15.1 (12.0-16.0) g/dL Hct 45.7 (36-46) % MCV 83.3 (80-100) fL MCH 27.4 (26-34) PG MCHC 32.9 (30-36) % RDW 17.4 H (11.6-14.8) % Plt Count 274 (150-400) X10^3/uL Neut % (Auto) 53.4 (50-75) % Lymph % (Auto) 36.8 (25-40) % [place] % (Auto) 7.9 (3-14) % Eos % (Auto) 1.2 L (2-4) % Baso % (Auto) 0.7 (0-2) % Neut # (Auto) 4500 (6097-0647) /uL Lymph # (Auto) 3100 (1692-4721) /uL [place] # (Auto) 700 (0-900) /uL Eos # (Auto) 100 (0-450) /uL Baso # (Auto) 100 (0-100) /uL Sodium 139 (137-145) mmol/L Potassium 3.5 (3.4-5.1) mmol/L Chloride 108 H (98-107) mmol/L Carbon Dioxide 27 (22-32) mmol/L BUN 10 (7-17) mg/dL Creatinine 0.81 (0.52-1.04) mg/dL Estimated GFR > 60 (>60) mL/min BUN/Creatinine Ratio 12.3 (6-22) Glucose 72 (70-100) mg/dL Calcium 9.3 (8.4-10.2) mg/dL Total Bilirubin 0.8 (0.2-1.3) mg/dL AST 44 H (14-36) IU/L ALT 52 H (<35) IU/L Alkaline Phosphatase 72 (38-126) U/L Total Protein 7.5 (6.3-8.2) g/dL Albumin 4.8 (3.5-5.0) g/dL Globulin 2.7 (1.7-4.1) g/dL Albumin/Globulin Ratio 1.8 (1.0-2.8) HCG, Quant < 2.4 mIU/mL Blood Type O Positive Antibody Screen Positive Antibody Identification Anti-E Antigen Identification Cancelled Crossmatch See Detail Point of Care Testing Test Results Negative Urine Dip Bedside Urine Glucose Negative Bedside Urine Bilirubin - Negative Bedside Urine Ketone - Negative Urine Specific [place] 1.015 Bedside Urine Occult Blood +/- Bedside Urine pH 7.0 Bedside Urine Protein +/- 15 Bedside Urine Urobilinogen - Negative Bedside Urine Nitrite - Negative Bedside Urine Leukocytes - Negative Esterase MDM Narrative Medical decision making narrative: Patient sent here for abnormal ultrasound results that was done outpatient. This was ordered by primary care doctor anton, patient is A1. History of D and C in the past for miscarriage as well as retained placenta. Patient had back in October. She is date set she bled for 6 days and it resolved. However in the middle of November she started vaginal bleeding again and has not stopped since then. No dizziness no passing out. Pain is controlled. After history and exam CBC CMP type and screen quantitative HCG MDM Medical records reviewed: Ultrasound report from earlier today Differential considered: Includes but not limited to ectopic retained products of conception Lab Test results independently reviewed as above. Pertinent findings: WBC 8.5 hemoglobin 15.1 Quantitative hCG less than 2.4 O-positive blood Consultations: Spoke with OBCHARLESN/Dr. Payton, she will see patient in the emergency department Treatments: None indicated at this time Re-evaluations: 4:[address] Payton has seen patient. She will take patient to the OR for D and C now. Discussion: Appropriate for admission for D&C. OBGYN service has seen patient here in the department. Diagnosis: Retained products of conception Discharge Plan Departure Patient Disposition: Admitted as Observation Clinical Impression: Retained products of conception Admit Date/Time: 12/29/23 16:23 Admit Provider: Libia Rm
[2023-12-29 15:53] LABS: Alanine Aminotransferase 52 IU/L (<35); Albumin 4.8 g/dL (3.5-5.0); Albumin Globulin Ratio 1.8 (1.0-2.8); Alkaline Phosphatase 72 U/L (38-126); Aspartate Aminotransferase 44 IU/L (14-36); BUN Creatinine Ratio 12.3 (6-22); Bilirubin Total 0.8 mg/dL (0.2-1.3); Blood Urea Nitrogen 10 mg/dL (7-17); Calcium 9.3 mg/dL (8.4-10.2); Carbon Dioxide 27 mmol/L (22-32); Chloride 108 mmol/L (98-107); Estimated Glomerular Filt Rate > 60 mL/min (>60); Globulin 2.7 g/dL (1.7-4.1); Glucose 72 mg/dL (70-100); HEMOLYSIS < 15 (0-50); Potassium 3.5 mmol/L (3.4-5.1); Sodium 139 mmol/L (137-145); Total Protein 7.5 g/dL (6.3-8.2)
[2023-12-29 16:09] LABS: HCG Quantitative /Beta subunit < 2.4 mIU/mL
[2023-12-29 16:34] VITALS: BP 120/69; PULSE 77; RESP 20; TEMP 37.1; O2SAT 99
--- NOTE | 2023-12-29 17:31 | PM.GYNHP.1 ---
History of Present Illness History of Present Illness Reason for admission: vaginal bleeding Narrative: Chloé Ortiz is a 28 year old female with hx of EAB in , presenting to the ER for persistent vaginal bleeding. She reports taking mifepristone/misoprostol in , and had bleeding for 5 days. She then started bleeding again about 1 week later and has had persistent bleeding since. She states the flow is sometimes heavy, sometimes light. She has some cramping, but denies pelvic pain or fever. She reports having significant issues with retained tissue and hemorrhage with all of her pregnancies. She required a D&C with her first miscarriage, then with her 1st delivery, she had a uterine inversion with hemorrhage and transfusion. She then had a hemorrhage with her 2nd delivery, then had a D&C for retained placenta afterward. This was an unintended , and she has a Nexplanon that was placed at the time of this conception (not noted due to negative test when placed). [facility] Medical History ADHD Uterine inversion pericardial effusion Two vessel umbilical cord in [place] , antepartum Bipolar disorder Anxiety Depression Surgical History Anesthesia History of ERCP Status post cholecystectomy (~12/2019) History of tonsillectomy H/O dilation and curettage Family History Mother Ovarian cancer Pre-diabetes History of heart disease Hyperlipidemia Hypertension Stroke Grandfather Colon cancer Diabetes mellitus Grandmother Diabetes mellitus Father Diabetes mellitus Hypertension Family/Other Diabetes mellitus Social History marital status: unmarried,single number of children: 1 household members: family lives independently: Yes caregiver/support person: Yes housing: other pets and animals: No education level: high school occupational status: employed current occupational exposures/hazards: No special angelica needs: No travel history: over 6 months ago seatbelt use: always water heater temp set < 120 deg: Yes working smoke detector in home: Yes fire extinguisher in home: Yes carbon monox detector in home: Yes firearms in home: No do you feel safe at home: Yes Smoking Status: Current every day smoker Tobacco: How many years used: 13 second hand exposure: No alcohol intake: former substance use type: marijuana during the past year weight has: increased > 10 lbs well-balanced diet: about half the time daily servings fruits/ve-4 caffeine: Yes Type(s) of exercise: none Meds Home Medications and Allergies Home Medications Medication Instructions Recorded Confirmed Type acetaminophen 325 mg tablet 650 mg (2 x 325 mg) PO Q6HR PRN 04/24/23 11/10/23 Rx Pain, Mild (1-3) #30 tabs ibuprofen 600 mg tablet 600 mg PO Q6HR PRN Pain, Mild 05/07/23 11/10/23 Rx (1-3) #30 tabs oxycodone 5 mg tablet 5 mg PO Q4H PRN pain #20 tabs 05/07/23 11/10/23 Rx dextroamphetamine-amphetamine ER 20 mg PO DAILY #30 caps 09/18/23 11/10/23 Rx 20 mg 24hr capsule,extend release etonogestrel 68 mg subdermal 1 implant subdermal ONCE #1 ea 10/19/23 11/10/23 Rx implant (Nexplanon) dextroamphetamine-amphetamine 15 15 mg PO DAILY #30 tabs 11/10/23 11/10/23 Rx mg tablet ondansetron 4 mg disintegrating 4 mg PO Q8H PRN nausea and 11/10/23 11/10/23 Rx tablet vomiting #30 tabs dextroamphetamine-amphetamine ER 25 mg PO DAILY #30 caps 12/25/23 Rx 25 mg 24hr capsule,extend release Allergies Allergy/AdvReac Type Severity Reaction Status Date / Time adhesive Allergy Mild Hives Verified 11/10/23 09:26 Latex, Natural Rubber Allergy Mild Swelling, Verified 11/10/23 09:26 Localized Blisters Review of Systems Review of Systems ROS: Yes All systems reviewed with the patient and are negative except as otherwise documented Exam Vital Signs (past 8 hours): - 12/29/23 14:44 12/29/23 16:34 Temperature 98.3 F 98.7 F Pulse Rate 90 77 Respiratory Rate 18 20 Blood Pressure 123/68 120/69 Pulse Oximetry 99 99 Oxygen Delivery Method Room Air Room Air Oxygen Delivery Method Room Air Const General: comfortable and No acute distress Nutritional Appearance: obese Resp Effort & Inspection: normal respiratory effort and able to speak in complete sentences GI Other: soft, nontender, nondistended Psych Mood: congruent mood Affect: normal affect Objective Imaging US - abdomen: Radiologist's impression: FINDINGS: Uterus: Uterus is anteverted and normal in size at 6.9 x 4.2 x 5.3 cm. The myometrium is homogeneous. The endometrium measures 13.7 mm combined thickness. Ill-defined heterogeneous region within the endometrial complex with increased vascularity measuring 1 x 1 x 1.5 cm. Ovaries: The right ovary measures 1.7 x 2.2 x 1.3 cm, with a calculated ovarian volume of 2.4 cc. The left ovary measures 2.9 x 1.8 x 2 cm, with a calculated ovarian volume of 5.4 cc. The ovaries have a normal sonographic appearance. Anechoic simple cyst measuring 1.3 x 1.5 x 1.1 cm in the right ovary. Less than 12 follicles can be seen in each ovary. No adnexal masses are seen. Other: No pathologic free abdominal or pelvic fluid. IMPRESSION: 1. Ill-defined heterogeneous region within the endometrial complex with increased vascularity with increased vascularity measuring 1 x 1 x 1.5 cm highly suspicious for retained products of conception. 2. Normal sonographic appearance of the bilateral ovaries. Dictated by: Suzy Resendiz M.D. on 12/29/2023 at 11:18 Approved by: Suzy Resendiz M.D. on 12/29/2023 at 11:27 Labs 12/29/23 15:12 12/29/23 15:12 Labs: Laboratory Results - last 24 hr 12/29/23 15:12 WBC 8.5 RBC 5.49 H Hgb 15.1 Hct 45.7 MCV 83.3 MCH 27.4 MCHC 32.9 RDW 17.4 H Plt Count 274 Neut % (Auto) 53.4 Lymph % (Auto) 36.8 [place] % (Auto) 7.9 Eos % (Auto) 1.2 L Baso % (Auto) 0.7 Neut # (Auto) 4500 Lymph # (Auto) 3100 [place] # (Auto) 700 Eos # (Auto) 100 Baso # (Auto) 100 Sodium 139 Potassium 3.5 Chloride 108 H Carbon Dioxide 27 BUN 10 Creatinine 0.81 Estimated GFR > 60 BUN/Creatinine Ratio 12.3 Glucose 72 Calcium 9.3 Total Bilirubin 0.8 AST 44 H ALT 52 H Alkaline Phosphatase 72 Total Protein 7.5 Albumin 4.8 Globulin 2.7 Albumin/Globulin Ratio 1.8 HCG, Quant < 2.4 Blood Type O Positive Crossmatch See Detail Assessment & Plan Assessment and plan (1) Retained products of conception: Status: Acute Assessment & Plan narrative: 28yo s/p EAB in , with suspected retained products of conception on US today. Recommended proceeding with suction D&C. We discussed that given her obstetrical hx, she is at significant risk of bleeding. Discussed medications and possible need for blood transfusion. Also discussed the potential for life-saving hysterectomy if indicated. Pt understands, and agrees to proceed with surgery. -plan for 2g Ancef for ppx -plan for discharge to home from the PACU Surgery consent We discussed the risks/benefits/alternatives to the proposed procedure, to include: -risk of bleeding, requiring medications, blood products, or other procedures as indicated -risk of infection, requiring prolonged hospital stay or other procedures -risk of injury to other structures, including bowel, bladder, blood vessels, nerves, etc. which may also require additional procedures -risk of adverse reaction to anesthesia or medications -risk of venous thromboembolism and associated sequelae -risk of rare complications such as cardiac arrest, or extremely rarely, Patient is aware of the risks, and desires to proceed with planned surgical procedure. Time Spent With Patient Time with patient: less than 30 minutes
[2023-12-29 18:22] VITALS: BMI 36.3
--- NOTE | 2023-12-29 18:41 | CM.MNRNOTE ---
Patient arrives from ED at 1745 this evening. She is A&OX4, VSS, afebrile. She is ambulating independently in the room. Per ED report she has not eaten or drank anything today. She reports back pain severe 8/10 she states where my kidneys are and she states abdominal pain 8/10 feels like sharp cramping MD Rm notified for prn pain medications. Per Pre op RN they called for report. Blood bank confirmed that blood units for patient were delivered. At 1830 patient was transported via bed to preop area.
[2023-12-29 18:50] VITALS: BP 112/61; PULSE 68; RESP 16; TEMP 37.1; O2SAT 100; BMI 36.3
[2023-12-29] MEDS: LACTATED RINGERS 1,000 ML 42 ML IV (18:53)
[2023-12-29] MEDS: CEFAZOLIN 2 GM/100 ML PREMIX 100 ML IV (19:14)
[2023-12-29] MEDS: TRANEXAMIC ACID 1,000 MG in SODIUM CHLORIDE 0.9% 100 ML 200 MG IV (19:20)
--- NOTE | 2023-12-29 19:31 | SUR.OPER ---
Lithotomy on padded OR bed, head on pillow, arms secured on padded arm boards at <90 degrees abduction. Legs secured in padded yellow fins stirrups.
--- NOTE | 2023-12-29 19:55 | PM.OP.1 ---
Operative Date/Time/Diagnoses Date of procedure: 12/29/23 Time of procedure: 19:00 Pre-op diagnosis: Retained products of conception Post-op diagnosis: same Procedure & Clinicians Procedure: Suction dilation and curettage Same procedure as scheduled: Yes Indications: 28 year old female with hx of EAB in , presenting to the ER for persistent vaginal bleeding. She reports taking mifepristone/misoprostol in , and had bleeding for 5 days. She then started bleeding again about 1 week later and has had persistent bleeding since. She states the flow is sometimes heavy, sometimes light. She has some cramping, but denies pelvic pain or fever. Surgeon: Libia Rm Click Yes if Unassisted: Yes Anesthesia Type: General Operative Notes Findings: Small amount of tissue obtained. Slow uterine bleeding noted at the end of the case. Specimen(s): other (products of conception) Estimated Blood Loss (mL): 50 Blood products transfused: none Procedure in detail: The risks, benefits, indications and alternatives of the procedure were reviewed with the patient and informed consent was obtained. The pt was taken to the operating room where general anesthesia was obtained without difficulty. The pt was then placed in the low lithotomy position using gel-padded Juan Stirrups. SCDs were placed bilaterally for VTE prophylaxis. The pt was then prepped and draped in the sterile fashion. She received 1g of TXA and 2g of Ancef for prophylaxis. A sterile speculum was placed in the patient?s vagina and the cervix was visualized.? A single tooth tenaculum was used to grasp the anterior lip of the cervix. The cervix was then gently, serially dilated to a size 7mm Hegar dilator. A 7mm curved suction catheter was then introduced into the uterine cavity, and gently advanced to the uterine fundus under ultrasound guidance. The suction device was then activated to 60mmHg and the catheter was rotated to clear the uterus of products of conception. Several passes were performed with a small amount of tissue obtained. A gentle, sharp curettage was then performed until a gritty texture was noted. All tissue was sent to pathology for review. Abdominal ultrasound showed a thin endometrial lining. The single tooth tenaculum was then removed from the anterior lip of the cervix. The tenaculum sites were noted to be hemostatic. All instruments were then removed from the patient?s vagina. At the completion of the case the sponge and needle counts were correct x 2. The patient tolerated the procedure well and was taken to the PACU in stable condition. Complications: none Post-operative Condition: stable Disposition: PACU Plan for aftercare: Discharge to home once meeting PACU criteria.
[2023-12-29 19:58] VITALS: BP 135/79; PULSE 60; RESP 11; TEMP 36.1; O2SAT 100
[2023-12-29 20:02] VITALS: BP 127/79; PULSE 58; RESP 12; O2SAT 100
[2023-12-29] MEDS: OXYCODONE IR 5 MG TABLET PO (20:07)
== END 2023-12-29 20:16 | disposition home or self-care (01) ==
LOC: ED 15:35 → AC 16:24
PROVIDERS: Admitting Provider Student in an Organized Health Care Education/Training Program; Emergency Provider Emergency Medicine; PCP Family Medicine; Referring Provider Emergency Medicine; Visit Provider Student in an Organized Health Care Education/Training Program
PROC: (CPT 58120; principal; 2023-12-29 19:30)
DX: O03.1 Delayed or excessive hemorrhage following incomplete spontaneous abortion (principal)
CPT/HCPCS: 59812; 36415; 76830; 76856; 80053; 81003; 81025; 84702; 85025; 86850; 86870; 86900; 86901; 99283; G0378; J0690; J1100; J2250; J2405; J2704; J3010

== ENCOUNTER → 2024-02-09 09:27 | Outpatient (CLI) | payer OTHER, MEDICAID, SELFPAY ==
[2024-02-09 15:34] LABS: Urine N gonorrhoeae NOT DETECTED
[2024-02-09 15:40] LABS: Urine Chlamydia NOT DETECTED
== END ==
PROVIDERS: PCP Family Medicine; Visit Provider Family Medicine
DX: Z11.3 Encounter for screening for infections with a predominantly sexual mode of transmission (principal)
CPT/HCPCS: 87491; 87591

== ENCOUNTER 2025-02-20 19:33 | Emergency (ER) | payer OTHER, SELFPAY ==
[2025-02-20 19:44] VITALS: BP 154/77; PULSE 88; RESP 20; TEMP 36.3; O2SAT 97; BMI 39.4
== END 2025-02-20 20:42 | disposition left against medical advice (07) ==
PROVIDERS: Emergency Provider Emergency Medicine; PCP Family Medicine
DX: J02.9 Acute pharyngitis, unspecified (principal); Z53.21 Procedure and treatment not carried out due to patient leaving prior to being seen by health care provider
CPT/HCPCS: 99281